=== PATIENT | male | born 1955 | race Caucasian/White ===

== ENCOUNTER 2016-08-18 17:00 | Outpatient (CLI) | payer MEDICAID | END 2016-08-18 17:01 | disposition home or self-care (01) | DX: B19.20 Unspecified viral hepatitis C without hepatic coma (principal) ==

== ENCOUNTER 2017-04-12 15:05 | Outpatient (CLI) | payer MEDICAID ==
--- NOTE | 2017-04-13 11:36 | XRAY Report ---
LEFT HIP AND PELVIS: 04/12/2017 CLINICAL INDICATION: Hip pain. FINDINGS: Frontal view of the hips and pelvis and frogleg lateral view of the left hip demonstrate a rthritic changes, moderate to severe, most compatible with osteoarthritis. There is no evidence of a cute fracture or dislocation. Mild osteoarthritis of the right hip is also noted. IMPRESSION: MODERATE TO SEVERE ARTHRITIS OF THE LEFT HIP, MOST COMPATIBLE WITH OSTEOARTHRITIS. JOB #: [id number] EXT JOB #:[id number]
== END 2017-04-12 15:06 | disposition home or self-care (01) ==
LOC: DI 15:05
PROVIDERS: ATTEND Nurse Practitioner Family
DX: M25.552 Pain in left hip (principal); M16.12 Unilateral primary osteoarthritis, left hip

== ENCOUNTER 2017-04-16 13:33 | Outpatient (CLI) | payer MEDICAID ==
--- NOTE | 2017-04-16 15:04 | Ultrasound Report ---
EXAM: SCROTAL ULTRASOUND EXAM DATE: 04/16/2017 02:08 PM. CLINICAL HISTORY: Left testicular mass, increasing in size for last month. No pain. COMPARISON: None. TECHNIQUE: Real-time scanning was performed with static images obtained. Both color-flow and Doppler spectral analysis were utilized. FINDINGS: Right: Testis: 4.4 x 2.5 x 3.0 cm. Normal echotexture. No masses or calcification. No hyperemia. Epididymis: The epididymal head measures 1.3 x 0.7 x 0.8 cm. Normal echotexture. No hyperemia. Hydrocele: None. Varicocele: None. Left: Testis: 4.6 x 2.5 x 2.9 cm. Normal echotexture. No mass or calcification. No hyperemia Epididymis: The epididymal head measures 2.1 x 2.0 x 2.1 cm and contains a multiloculated cyst measur ing 1.6 x 1.0 x 1.2 cm. Normal echotexture. No hyperemia. Hydrocele: None. Varicocele: None. IMPRESSION: 1. Multiloculated left epididymal head cyst. 2. Otherwise unremarkable scrotal ultrasound. [facility] Referring Provider Line: [phone] SITE ID: [id number]
== END 2017-04-16 13:34 | disposition home or self-care (01) ==
LOC: DI 13:33
PROVIDERS: ATTEND Nurse Practitioner Family
DX: N50.3 Cyst of epididymis (principal)
CPT/HCPCS: 76870

== ENCOUNTER 2017-09-05 08:00 | Outpatient (CLI) | payer MEDICAID ==
[2017-09-05 18:15] LABS: BASOPHILS % (AUTO) 0.9 %; EOSINOPHILS # (AUTO) 0.1 10^3/uL (0.0-0.7); EOSINOPHILS % (AUTO) 1.9 %; HGB - HEMOGLOBIN 13.3 g/dL (14.0-18.0); LYMPHOCYTES # (AUTO) 1.4 10^3/uL (1.5-3.5); LYMPHOCYTES % (AUTO) 27.9 %; MEAN CORPUSCULAR HEMOGLOBIN 30.6 pg (27.0-31.0); MEAN CORPUSCULAR HGB CONC 33.8 g/dL (32.0-36.0); MEAN CORPUSCULAR VOLUME 90.8 fL (80.0-94.0); MEAN PLATELET VOLUME 6.9 fL (7.4-11.4); MONOCYTES # (AUTO) 0.5 10^3/uL (0.0-1.0); MONOCYTES % (AUTO) 9.6 %; NEUTROPHILS # (AUTO) 2.9 10^3/uL (1.5-6.6); NEUTROPHILS % (AUTO) 59.7 %; PLT - PLATELET COUNT 300 10^3/uL (130-450); RED BLOOD COUNT 4.35 10^6/uL (4.70-6.10); RED CELL DISTRIBUTION WIDTH 13.8 % (12.0-15.0); WHITE BLOOD COUNT 4.9 x10^3/uL (4.8-10.8)
[2017-09-05 18:41] LABS: ALBUMIN 4.3 g/dL (3.2-5.5); ALBUMIN/GLOBULIN RATIO 1.3 (1.0-2.2); ALKALINE PHOSPHATASE 52 IU/L (42-121); ALT ALANINE AMINOTRANSFERASE 32 IU/L (10-60); AST ASPARTATE AMINOTRANSFERASE 31 IU/L (10-42); BILIRUBIN,TOTAL 0.4 mg/dL (0.2-1.0); BUN - BLOOD UREA NITROGEN 14 mg/dL (6-20); CARBON DIOXIDE - CO2 28 mmol/L (21-32); CHLORIDE 103 mmol/L (101-111); CREATININE 0.9 mg/dL (0.6-1.2); GFR - MDRD 85 (>89); GLUCOSE 87 mg/dL (70-100); SODIUM 138 mmol/L (135-145); TOTAL PROTEIN 7.5 g/dL (6.7-8.2)
== END 2017-09-05 08:01 | disposition home or self-care (01) ==
LOC: LAB.S 08:00
PROVIDERS: ATTEND Nurse Practitioner Family
DX: I10 Essential (primary) hypertension (principal)
CPT/HCPCS: 36415; 80053; 84443; 85025

== ENCOUNTER 2017-09-10 08:00 | Outpatient (CLI) | payer MEDICAID | END 2017-09-10 23:59 | disposition home or self-care (01) | LOC: LAB.R 08:00 | PROVIDERS: ATTEND Nurse Practitioner Family | DX: D64.9 Anemia, unspecified (principal) | CPT/HCPCS: 82270 ==

== ENCOUNTER 2017-10-14 20:52 | Emergency (ER) | payer MEDICAID ==
[2017-10-14 21:03] VITALS: BP 148/90
--- NOTE | 2017-10-14 21:17 | ED Physician Documentation ---
History of Present Illness - Stated complaint Stated Complaint: ELBOW PX - Chief complaint Chief Complaint: General - History obtained from History obtained from: Patient - History of Present Illness Timing: Other (He developed a nonpainful but significant swelling of the left elbow over the last couple of days. He is worried it might be somehow related to his new hepatitis C medication. No fevers.) Review of Systems Constitutional: denies: Fever, Chills Cardiac: denies: Chest pain / pressure, Palpitations Respiratory: denies: Dyspnea, Cough PD PAST MEDICAL HISTORY - Past Medical History Past Medical History: Yes Cardiovascular: Hypertension, Angina Respiratory: COPD, Other Neuro: TIA Endocrine/Autoimmune: None GI: Colon polyps, Hepatitis : Retention HEENT: None Psych: Depression, Post traumatic stress disorder Musculoskeletal: Osteoarthritis Derm: None - Past Surgical History Past Surgical History: Yes General: Other HEENT: Tonsil/Adenoidectomy - Present Medications Home Medications: Ambulatory Orders Medication Instructions Recorded Confirmed Diflunisal 500 mg PO DAILY 02/14/15 02/14/15 - Allergies Allergies/Adverse Reactions: Allergies Allergy/AdvReac Type Severity Reaction Status Date / Time No Known Drug Allergies Allergy Verified 10/14/17 21:03 - Social History Does the pt smoke?: Yes Smoking Status: Current every day smoker Does the pt drink ETOH?: No Does the pt have substance abuse?: No - Immunizations Immunizations are current?: No - POLST Patient has POLST: No PD ED PE NORMAL - Vitals Vital signs reviewed: Yes - General General: Alert and oriented X 3, No acute distress - Extremities Extremities: Other (He has significant olecranon bursitis, however it does not look infected. It is not red or warm, just a large effusion of that bursa. He has no limited range of motion of the left elbow.) - Neuro Neuro: Alert and oriented X 3, Normal speech Results - Vitals Vitals: Vital Signs - 24 hr 10/14/17 21:02 Temperature 36.7 C Heart Rate 82 Respiratory 17 Rate Blood Pressure 148/90 H O2 Saturation 98 Oxygen O2 Source Room air Departure - Departure Disposition: 01 Home, Self Care Clinical Impression: Effusion of left olecranon bursa Condition: Good Record reviewed to determine appropriate education?: Yes Instructions: ED Bursitis Elbow Olecranon Comments: Take ibuprofen as needed, after a while if it does not improve he can follow-up with orthopedic surgeon for removal of it. Return if it gets red or warm or if you start run a fever. Your blood pressure was elevated today on check into the emergency department. This does not mean that you have hypertension, it is a common phenomenon to come to the emergency department and have elevated blood pressure. I recommend that you see your primary care physician within the week to have it rechecked when you are feeling better.
== END 2017-10-14 21:25 | disposition home or self-care (01) ==
LOC: ED 20:52
DX: M25.422 Effusion, left elbow (principal); M70.22 Olecranon bursitis, left elbow; I10 Essential (primary) hypertension; M19.90 Unspecified osteoarthritis, unspecified site; F17.200 Nicotine dependence, unspecified, uncomplicated
CPT/HCPCS: 99282; 99283

== ENCOUNTER 2017-10-31 08:00 | Outpatient (CLI) | payer MEDICAID ==
[2017-10-31 18:00] LABS: BASOPHILS % (AUTO) 0.7 %; EOSINOPHILS # (AUTO) 0.1 10^3/uL (0.0-0.7); EOSINOPHILS % (AUTO) 1.6 %; HGB - HEMOGLOBIN 13.1 g/dL (14.0-18.0); LYMPHOCYTES # (AUTO) 1.8 10^3/uL (1.5-3.5); LYMPHOCYTES % (AUTO) 32.8 %; MEAN CORPUSCULAR HEMOGLOBIN 30.2 pg (27.0-31.0); MEAN PLATELET VOLUME 6.7 fL (7.4-11.4); MONOCYTES # (AUTO) 0.6 10^3/uL (0.0-1.0); MONOCYTES % (AUTO) 11.1 %; NEUTROPHILS # (AUTO) 2.9 10^3/uL (1.5-6.6); NEUTROPHILS % (AUTO) 53.8 %; PLT - PLATELET COUNT 328 10^3/uL (130-450); RED BLOOD COUNT 4.32 10^6/uL (4.70-6.10); RED CELL DISTRIBUTION WIDTH 13.3 % (12.0-15.0); WHITE BLOOD COUNT 5.4 x10^3/uL (4.8-10.8)
[2017-10-31 18:27] LABS: ALBUMIN 4.5 g/dL (3.2-5.5); ALBUMIN/GLOBULIN RATIO 1.4 (1.0-2.2); BILIRUBIN,TOTAL 0.6 mg/dL (0.2-1.0); CALCIUM 9.1 mg/dL (8.5-10.3); TOTAL PROTEIN 7.8 g/dL (6.7-8.2)
== END 2017-10-31 08:01 ==
LOC: LAB.S 08:00
PROVIDERS: ATTEND Physician Assistant
DX: B19.20 Unspecified viral hepatitis C without hepatic coma (principal)
CPT/HCPCS: 36415; 80053; 85025

== ENCOUNTER 2017-11-07 08:00 | Outpatient (CLI) | payer MEDICAID ==
[2017-11-07 18:26] LABS: BASOPHILS % (AUTO) 0.8 %; EOSINOPHILS # (AUTO) 0.1 10^3/uL (0.0-0.7); EOSINOPHILS % (AUTO) 2.2 %; HGB - HEMOGLOBIN 12.7 g/dL (14.0-18.0); LYMPHOCYTES # (AUTO) 1.5 10^3/uL (1.5-3.5); LYMPHOCYTES % (AUTO) 26.5 %; MEAN CORPUSCULAR HEMOGLOBIN 30.3 pg (27.0-31.0); MEAN CORPUSCULAR HGB CONC 33.5 g/dL (32.0-36.0); MEAN CORPUSCULAR VOLUME 90.3 fL (80.0-94.0); MEAN PLATELET VOLUME 6.9 fL (7.4-11.4); MONOCYTES # (AUTO) 0.6 10^3/uL (0.0-1.0); MONOCYTES % (AUTO) 11.2 %; NEUTROPHILS # (AUTO) 3.4 10^3/uL (1.5-6.6); NEUTROPHILS % (AUTO) 59.3 %; PLT - PLATELET COUNT 346 10^3/uL (130-450); RED BLOOD COUNT 4.18 10^6/uL (4.70-6.10); RED CELL DISTRIBUTION WIDTH 13.5 % (12.0-15.0); WHITE BLOOD COUNT 5.7 x10^3/uL (4.8-10.8)
[2017-11-07 18:53] LABS: ALBUMIN 4.2 g/dL (3.2-5.5); ALBUMIN/GLOBULIN RATIO 1.4 (1.0-2.2); BILIRUBIN,TOTAL 0.4 mg/dL (0.2-1.0); CALCIUM 8.7 mg/dL (8.5-10.3); CREATININE 0.9 mg/dL (0.6-1.2); TOTAL PROTEIN 7.1 g/dL (6.7-8.2)
[2017-11-09 15:41] LABS: HCV RNA QNT <1.18 NOT DETECTED Log IU/mL (NOT DETECTED); HCV RNA QUANT RT PCR <15 NOT DETECTED IU/mL (NOT DETECTED)
== END 2017-11-07 08:01 ==
LOC: LAB.S 08:00
PROVIDERS: ATTEND Physician Assistant
DX: B19.20 Unspecified viral hepatitis C without hepatic coma (principal)
CPT/HCPCS: 36415; 80053; 85025; 87522

== ENCOUNTER 2017-11-30 12:33 | Outpatient (CLI) | payer MEDICAID ==
[2017-11-30 12:51] LABS: BASOPHILS % (AUTO) 0.6 %; EOSINOPHILS # (AUTO) 0.1 10^3/uL (0.0-0.7); EOSINOPHILS % (AUTO) 1.4 %; LYMPHOCYTES # (AUTO) 1.5 10^3/uL (1.5-3.5); LYMPHOCYTES % (AUTO) 30.1 %; MEAN CORPUSCULAR HGB CONC 34.2 g/dL (32.0-36.0); MEAN CORPUSCULAR VOLUME 90.5 fL (80.0-94.0); MEAN PLATELET VOLUME 6.1 fL (7.4-11.4); MONOCYTES # (AUTO) 0.5 10^3/uL (0.0-1.0); MONOCYTES % (AUTO) 10.2 %; NEUTROPHILS # (AUTO) 2.8 10^3/uL (1.5-6.6); NEUTROPHILS % (AUTO) 57.7 %; PLT - PLATELET COUNT 293 10^3/uL (130-450); RED BLOOD COUNT 4.21 10^6/uL (4.70-6.10); RED CELL DISTRIBUTION WIDTH 13.4 % (12.0-15.0); WHITE BLOOD COUNT 4.9 x10^3/uL (4.8-10.8)
[2017-11-30 13:01] LABS: ALBUMIN 4.3 g/dL (3.2-5.5); ALBUMIN/GLOBULIN RATIO 1.4 (1.0-2.2); BILIRUBIN,TOTAL 0.3 mg/dL (0.2-1.0); CALCIUM 8.8 mg/dL (8.5-10.3); TOTAL PROTEIN 7.3 g/dL (6.7-8.2)
[2017-12-01 11:21] LABS: HEPATITIS C ANTIBODY REACTIVE (NON-REACTIVE)
[2017-12-03 16:11] LABS: HCV RNA QNT <1.18 NOT DETECTED Log IU/mL (NOT DETECTED); HCV RNA QUANT RT PCR <15 NOT DETECTED IU/mL (NOT DETECTED)
== END 2017-11-30 12:34 | disposition home or self-care (01) ==
LOC: LAB 12:33
PROVIDERS: ATTEND Physician Assistant
DX: B19.20 Unspecified viral hepatitis C without hepatic coma (principal)
CPT/HCPCS: 36415; 80053; 85025; 86803; 87522

== ENCOUNTER 2018-02-20 16:50 | Outpatient (CLI) | payer MEDICAID | END 2018-02-20 16:51 | disposition home or self-care (01) | LOC: RT.S 16:50 | PROVIDERS: ATTEND Nurse Practitioner Family | DX: Z01.818 Encounter for other preprocedural examination (principal) ==

== ENCOUNTER 2018-02-23 13:17 | Outpatient (CLI) | payer MEDICAID ==
[2018-02-23 13:38] LABS: BASOPHILS % (AUTO) 0.6 %; EOSINOPHILS # (AUTO) 0.1 10^3/uL (0.0-0.7); EOSINOPHILS % (AUTO) 1.9 %; HGB - HEMOGLOBIN 13.2 g/dL (14.0-18.0); LYMPHOCYTES # (AUTO) 1.7 10^3/uL (1.5-3.5); LYMPHOCYTES % (AUTO) 27.6 %; MEAN CORPUSCULAR HEMOGLOBIN 30.8 pg (27.0-31.0); MEAN CORPUSCULAR HGB CONC 33.5 g/dL (32.0-36.0); MEAN PLATELET VOLUME 6.3 fL (7.4-11.4); MONOCYTES # (AUTO) 0.6 10^3/uL (0.0-1.0); MONOCYTES % (AUTO) 10.2 %; NEUTROPHILS # (AUTO) 3.6 10^3/uL (1.5-6.6); NEUTROPHILS % (AUTO) 59.7 %; PLT - PLATELET COUNT 298 10^3/uL (130-450); RED BLOOD COUNT 4.28 10^6/uL (4.70-6.10); RED CELL DISTRIBUTION WIDTH 13.7 % (12.0-15.0); WHITE BLOOD COUNT 6.1 x10^3/uL (4.8-10.8)
[2018-02-23 13:56] LABS: ALBUMIN 3.8 g/dL (3.2-5.5); BILIRUBIN,TOTAL 0.5 mg/dL (0.2-1.0); CALCIUM 9.1 mg/dL (8.5-10.3); TOTAL PROTEIN 7.5 g/dL (6.7-8.2)
== END 2018-02-23 13:18 | disposition home or self-care (01) ==
LOC: LAB 13:17
PROVIDERS: ATTEND Nurse Practitioner Family
DX: Z01.818 Encounter for other preprocedural examination (principal)
CPT/HCPCS: 36415; 80053; 85025; 87522; 87640

== ENCOUNTER 2018-04-07 13:40 | Outpatient (CLI) | payer MEDICAID ==
--- NOTE | 2018-04-07 17:15 | CARDIAC PROCEDURE NOTE ---
DATE OF SERVICE: 04/07/2018 Physician: Ellen Bradford MD ORDERING PROVIDER: Magalys Steele. CAD RISK FACTORS/PAST MEDICAL HISTORY: 1. Long smoking history. 2. Hypertension. 3. Hyperlipidemia. 4. Male gender. INDICATIONS: 1. Abnormal EKG. 2. Preoperative for left hip surgery. TEST SUMMARY: RESTING EKG: Normal sinus rhythm, frequent PACs, LVH voltage. The patient exercised for 6 minutes on a 3-minute stage modified-Jorge protocol. Peak heart rate achieved was 135 (86% predicted maximum predicted heart rate for age), 3.5 METS. Normal heart rate response to exercise with rare PACs and rare PVCs during exercise. Abnormal blood pressure response with a drop in systolic blood pressure at peak. The patient had mild to moderate shortness of breath. No chest pain like his "angina" in the past. REASON FOR ENDING TEST: Achieved target heart rate and abnormal drop in blood pressure with exercise. PEAK EK-mm J-point depression in the lateral leads. IMPRESSION: 1. Fair exercise tolerance. 2. Borderline abnormal ischemic changes at peak heart rate. 3. Abnormal drop in blood pressure with exercise. This suggests significant coronary artery disease (CAD) and needs confirmation. 4. Recommend repeat testing with a pharmacologic stress test and myocardial perfusion imaging or consider proceeding to angiography (light activity until then), since he has a "history of angina" and has never had a cardiac catheterization. TD: 04/07/2018 16:03 MTDD
== END 2018-04-07 13:41 | disposition home or self-care (01) ==
LOC: DI 13:40
PROVIDERS: ATTEND Nurse Practitioner Family
DX: Z01.818 Encounter for other preprocedural examination (principal); I10 Essential (primary) hypertension; R94.31 Abnormal electrocardiogram [ECG] [EKG]
CPT/HCPCS: 93017

== ENCOUNTER 2018-04-12 12:10 | Outpatient (CLI) | payer OTHER | END 2018-04-12 12:11 | disposition home or self-care (01) | LOC: LAB 12:10 | PROVIDERS: ATTEND Pathology Blood Banking & Transfusion Medicine | DX: Z01.89 Encounter for other specified special examinations (principal) | CPT/HCPCS: 36415 ==

== ENCOUNTER 2018-06-20 11:39 | Emergency (ER) | payer MEDICAID ==
--- NOTE | 2018-06-20 13:57 | ED Physician Documentation ---
PD HPI BACK PAIN - Stated complaint Stated Complaint: LOW BACK PX-BI-LAT LEG PX - Chief complaint Chief Complaint: Back Pain - History obtained from History obtained from: Patient, Family - History of Present Illness Timing - onset: Chronic Timing - duration: Years Timing - details: Gradual onset, Still present, Intermittant Pain level max: 10 Pain level now: 10 Location: Lower Quality: Pain, Similar to prior episodes Associated symptoms: Numbness (IntermittentBut chronic), Incontinent of urine (Intermittent and chronic). No: Fever, Weakness, Unable to urinate, Hematuria, Incontinent of stool Improves with: Rest Worsened by: Movement Contributing factors: Out of meds (3 weeks out of meloxicam). No: Trauma, Anticoagulated Similar symptoms before: Work up / diagnostics (2005 L5 compression fracture. Left hip requires replacement seen by orthopedic couple months ago.) - Additional information Additional information: 62-year-old male with history of Hypertension, hepatitis C with treatment and chronic low back pain after a lifting injury at work in 2005 when he was in [facility]. He also stated he has chronic left hip pain for which he had seen the local orthopedic here and is currently being worked up for the near future hip replacement.With his chronic low back pain and left hip pain he has intermittent numbness of both legs and intermittent incontinence of urine. Patient also stated he is on meloxicam which ran out 3 weeks ago due to insurance issues. Denies any recent trauma or lifting injury. Review of Systems Ten Systems: 10 systems reviewed and negative Constitutional: denies: Fever Cardiac: denies: Chest pain / pressure Respiratory: denies: Dyspnea GI: denies: Abdominal Pain, Nausea, Vomiting, Constipation, Diarrhea : reports: Incontinent (Chronic intermittent). denies: Dysuria, Frequency, Hematuria Musculoskeletal: reports: Back pain (Chronic), Extremity pain (Left hip chronic). denies: Neck pain Neurologic: reports: Numbness (Chronic intermittent). denies: Generalized weakness, Focal weakness PD PAST MEDICAL HISTORY - Past Medical History Past Medical History: No Cardiovascular: Hypertension, Angina Respiratory: COPD, Other Neuro: None Endocrine/Autoimmune: None GI: Colon polyps, Hepatitis : Retention, Incontinence HEENT: None Psych: Depression, Post traumatic stress disorder Musculoskeletal: Osteoarthritis Derm: None - Past Surgical History Past Surgical History: Yes General: Other HEENT: Tonsil/Adenoidectomy - Present Medications Home Medications: Ambulatory Orders Medication Instructions Recorded Confirmed Albuterol Sulf [Ventolin Hfa 2 puffs QID 06/20/18 06/20/18 Inhaler] Fluoxetine HCl 20 mg DAILY 06/20/18 06/20/18 Meloxicam 7.5 mg PO BID 06/20/18 06/20/18 Meloxicam 7.5 mg PO DAILY #6 tablet 06/20/18 Metoprolol Succinate 25 mg PO 06/20/18 Tiotropium [place] [Spiriva] 18 mcg IH 06/20/18 Umeclidinium Brm/Vilanterol Tr 1 tab DAILY 06/20/18 06/20/18 [Anoro Ellipta 62.5-25 Mcg INH] - Allergies Allergies/Adverse Reactions: Allergies Allergy/AdvReac Type Severity Reaction Status Date / Time No Known Drug Allergies Allergy Verified 06/20/18 12:22 - Social History Does the pt smoke?: Yes Smoking Status: Current every day smoker Does the pt drink ETOH?: Yes Does the pt have substance abuse?: Yes Substance Use and Type: Marijuana - Immunizations Immunizations are current?: Yes - POLST Patient has POLST: No PD ED PE NORMAL - Vitals Vital signs reviewed: Yes - General General: Alert and oriented X 3, No acute distress, Well developed/nourished - HEENT HEENT: Moist mucous membranes - Neck Neck: Supple, no meningeal sign, No bony TTP - Cardiac Cardiac: RRR, No murmur - Respiratory Respiratory: No respiratory distress, Clear bilaterally - Abdomen Abdomen: Normal bowel sounds, Soft, Non tender, Non distended, No organomegaly, Other (No palpable mass) - Back Back: No CVA TTP, No spinal TTP, Other (Low lumbar paravertebral muscle mild tenderness palpation. Positive leg Raising worse on the left side.Positive point tenderness on the left hip.) - Derm Derm: Warm and dry - Extremities Extremities: No deformity - Neuro Neuro: Alert and oriented X 3 - Psych Psych: Normal mood, Normal affect Results - Vitals Vitals: Vital Signs - 24 hr 06/20/18 12:16 Temperature 36.4 C L Heart Rate 57 L Respiratory 18 Rate Blood Pressure 135/98 H O2 Saturation 100 Oxygen O2 Source Room air PD MEDICAL DECISION MAKING - ED course Complexity details: reviewed results, re-evaluated patient, considered differential (Lumbar strain, chronic pain, chronic back and left hip pain, sciatica, Medication refill), d/w patient ED course: 1714 patient sitting up in the bedside and stated he is feeling better. He is here to get a prescription for his meloxicam. He has an appointment with his primary doctor on Tuesday. Will discharge here meloxicam 7.5 mg daily. Departure - Departure Disposition: Home, Self Care Clinical Impression: Back pain Qualifiers: Back pain location: low back pain Chronicity: chronic Back pain laterality: unspecified Sciatica presence: with sciatica Sciatica laterality: bilateral sciatica Qualified Code(s): M54.41 - Lumbago with sciatica, right side; M54.42 - Lumbago with sciatica, left side; G89.29 - Other chronic pain Sciatica Qualifiers: Laterality: bilateral Qualified Code(s): M54.31 - Sciatica, right side; M54.32 - Sciatica, left side Condition: Stable Instructions: ED Chronic Pain Management, ANTI-INFLAMMATORY, General Prescriptions: Meloxicam 7.5 mg PO DAILY #6 tablet Comments: Keep your doctor's appointments as scheduled next week. Maintain safety while taking your pain medication. If worse return to the emergency room.
--- NOTE | 2018-06-20 14:25 | XRAY Report ---
Reason: pain Procedure Date: 06/20/2018 Accession Number: [id number] / [id number] Procedure: XR - Lumbar Spine 2 View CPT Code: FULL RESULT: EXAM: LUMBOSACRAL SPINE RADIOGRAPHY EXAM DATE: 06/20/2018 01:46 PM. CLINICAL HISTORY: Pain. COMPARISONS: Lumbar spine 02/21/2015. TECHNIQUE: 3 views. FINDINGS: Alignment: There is 15 degrees levoconvex curvature of the lumbar spine between superior L2 and inferior L4, L3 apex. There is 16 degrees dextroconvex curvature of the thoracolumbar spine between superior T11 and inferior L2, T12-L1 apex. There is 1 mm retrolisthesis of L2 upon L3. There is 4 mm retrolisthesis of L3 upon L4. There is 2 mm retrolisthesis of L4 upon L5. Bones: Five sng-elv-eimdbbp lumbar vertebral bodies are present. No fractures or bone lesions. Disks: There is a moderate to severe disk space narrowing at L2-L3 and L3-L4. There is moderate disk space narrowing at L4-L5. There is moderate disk space narrowing at T12-L1. There are moderate anterior osteophytes. Facets: Mild degenerative changes. Sacroiliac Joints: Unremarkable. Soft Tissues: The visualized bowel gas pattern is normal. IMPRESSION: Moderate to severe lumbar spondylosis. No appreciable change. [facility]
--- NOTE | 2018-06-20 14:28 | XRAY Report ---
Reason: pain Procedure Date: 06/20/2018 Accession Number: [id number] / [id number] Procedure: XR - Pelvis 1 View CPT Code: FULL RESULT: EXAM: PELVIS RADIOGRAPHY EXAM DATE: 06/20/2018 01:46 PM. CLINICAL HISTORY: Pain. COMPARISON: Left hip and pelvis 04/12/2017. TECHNIQUE: 1 view. FINDINGS: Bones: No fracture or bone lesion. Joints: There are moderate progressive degenerative changes of the right hip with joint space narrowing and subchondral sclerosis. There are severe degenerative changes of the left hip with progressive bgxt-dd-gehi degeneration, remodeling of the femoral head, subchondral sclerosis, and subchondral cyst like changes. Soft Tissues: No soft tissue swelling. IMPRESSION: Progressive osteoarthritis of the hips, moderate on the right and severe on the left [facility]
[2018-06-20] MEDS: MELOXICAM 7.5 MG TABLET PO ONE (15:28)
[2018-06-20 16:07] VITALS: BP 134/98
[2018-06-21] MEDS ORDERED: MELOXICAM 7.5 MG TABLET PO SCH (09:00)
== END 2018-06-20 16:11 | disposition home or self-care (01) ==
LOC: ED 11:39
DX: M54.42 Lumbago with sciatica, left side (principal); M54.41 Lumbago with sciatica, right side; G89.29 Other chronic pain; M16.0 Bilateral primary osteoarthritis of hip; I10 Essential (primary) hypertension; B19.20 Unspecified viral hepatitis C without hepatic coma; F17.200 Nicotine dependence, unspecified, uncomplicated
CPT/HCPCS: 72100; 72170; 99283; A9270

== ENCOUNTER 2018-07-10 15:02 | Emergency (ER) | payer MEDICAID ==
[2018-07-10 15:13] VITALS: BP 145/96
--- NOTE | 2018-07-10 15:21 | ED Physician Documentation ---
PD HPI HEENT - Stated complaint Stated Complaint: TOOTH PAIN/ BILAT HIP PX - Chief complaint Chief Complaint: Heent - History obtained from History obtained from: Patient - History of Present Illness Timing - onset: How many days ago (2-3) Timing - duration: Days (2-3) Timing - details: Abrupt onset Location: Tooth (rigth lower canine, with swelling of gum over few days. had a single tooth there as anchor for bridge and the tooth broke off. He does not have use of the bridge now, and will be looking to get dentures eventually.) Associated symptoms: Facial swelling. No: Fever Similar symptoms before: Has not had sx before Recently seen: Not recently seen Review of Systems Constitutional: denies: Fever Throat: reports: Dental pain / toothache, Oral lesions / sores (focal swelling). denies: Sore throat, Swollen tonsils Cardiac: denies: Chest pain / pressure, Palpitations Respiratory: denies: Dyspnea, Cough Skin: denies: Rash, Lesions Musculoskeletal: reports: Other (chronic hip pain due to arthritis, no acute worsening and no redness/sores.) PD PAST MEDICAL HISTORY - Past Medical History Cardiovascular: Hypertension, Angina Respiratory: COPD, Other Neuro: None Endocrine/Autoimmune: None GI: Colon polyps, Hepatitis : Retention, Incontinence HEENT: None Psych: Depression, Post traumatic stress disorder Musculoskeletal: Osteoarthritis Derm: None - Past Surgical History Past Surgical History: Yes General: Other HEENT: Tonsil/Adenoidectomy - Present Medications Home Medications: Ambulatory Orders Medication Instructions Recorded Confirmed Albuterol Sulf [Ventolin Hfa 2 puffs QID 06/20/18 06/20/18 Inhaler] Meloxicam 7.5 mg PO BID 06/20/18 06/20/18 Metoprolol Succinate 25 mg PO 06/20/18 Tiotropium [place] [Spiriva] 18 mcg IH 06/20/18 Umeclidinium Brm/Vilanterol Tr 1 tab DAILY 06/20/18 06/20/18 [Anoro Ellipta 62.5-25 Mcg INH] Clindamycin HCl [Clindamycin 300MG 300 mg PO TID #21 capsule 07/10/18 CAP] Naproxen 375 mg PO BID #20 tablet 07/10/18 Tramadol HCl 50 mg PO Q6H PRN #15 tablet 07/10/18 - Allergies Allergies/Adverse Reactions: Allergies Allergy/AdvReac Type Severity Reaction Status Date / Time No Known Drug Allergies Allergy Verified 07/10/18 15:13 - Social History Does the pt smoke?: Yes Smoking Status: Current every day smoker Does the pt drink ETOH?: Yes Does the pt have substance abuse?: Yes - Immunizations Immunizations are current?: Yes - POLST Patient has POLST: No PD ED PE NORMAL - Vitals Vital signs reviewed: Yes - General General: Alert and oriented X 3, No acute distress, Well developed/nourished - HEENT HEENT: Other. No: Dentition benign (lower right canine with broken off decay at gumline, and focal bubble of ginginva c/w abscess, that I srinivas with scalpel tip and get out drops of pus. ) Results - Vitals Vitals: Oxygen O2 Source Room air PD MEDICAL DECISION MAKING - ED course Complexity details: considered differential, d/w patient Departure - Departure Disposition: 01 Home, Self Care Clinical Impression: Dental abscess, Hip arthritis Condition: Stable Record reviewed to determine appropriate education?: Yes Instructions: ED Abscess Dental Follow-Up: Magalys Steele ARNP [Primary Care Provider] - Arturo Young MD [Provider Admit Priv/Credential] - Prescriptions: Clindamycin HCl [Clindamycin 300MG CAP] 300 mg PO TID #21 capsule Naproxen 375 mg PO BID #20 tablet Tramadol HCl 50 mg PO Q6H PRN #15 tablet PRN Reason: Pain Comments: Rinse the mouth a few times a day with water or antiseptic mouthwash. Use clindamycin antibiotic 3 times a day for a week. Naproxen anti-inflammatory twice daily for pain and inflammation. Add tramadol if needed for pain. Follow-up with your dentist regarding more definitive care of the broken tooth, call for an appointment. Discharge Date/Time: 07/10/18 16:00
[2018-07-10] MEDS ORDERED: NAPROXEN 250 MG TABLET PO STA (15:44)
[2018-07-10] MEDS ORDERED: CLINDAMYCIN 150 MG CAPSULE PO STA (15:44)
[2018-07-10] MEDS ORDERED: HYDROcod/ACETAM 5/325 MG TABLET PO STA (15:44)
== END 2018-07-10 16:00 | disposition home or self-care (01) ==
LOC: ED 15:02
DX: K04.7 Periapical abscess without sinus (principal); M16.0 Bilateral primary osteoarthritis of hip; I10 Essential (primary) hypertension; F17.200 Nicotine dependence, unspecified, uncomplicated
CPT/HCPCS: 99283; A9270

== ENCOUNTER 2019-01-04 15:42 | Inpatient (IN) | payer MEDICAID ==
[2019-01-04 16:25] LABS: BASOPHILS % (AUTO) 0.2 %; EOSINOPHILS % (AUTO) 0.3 %; LYMPHOCYTES % (AUTO) 4.3 %; MEAN CORPUSCULAR HEMOGLOBIN 29.9 pg (27.0-31.0); MEAN CORPUSCULAR HGB CONC 33.4 g/dL (32.0-36.0); MEAN CORPUSCULAR VOLUME 89.5 fL (80.0-94.0); MEAN PLATELET VOLUME 7.3 fL (7.4-11.4); MONOCYTES % (AUTO) 6.5 %; NEUTROPHILS % (AUTO) 88.7 %; PLT - PLATELET COUNT 325 10^3/uL (130-450); RED BLOOD COUNT 3.68 10^6/uL (4.70-6.10); RED CELL DISTRIBUTION WIDTH 14.7 % (12.0-15.0); WHITE BLOOD COUNT 13.5 x10^3/uL (4.8-10.8)
[2019-01-04 16:30] LABS: ABNORMAL LYMPHS % (MANUAL) 0 %
[2019-01-04 16:40] LABS: ALBUMIN 2.6 g/dL (3.2-5.5); ALBUMIN/GLOBULIN RATIO 0.6 (1.0-2.2); CALCIUM 8.4 mg/dL (8.5-10.3); CREATININE 3.3 mg/dL (0.6-1.2)
[2019-01-04] MEDS ORDERED: SODIUM CHLORIDE 0.9% 1,000 ML IV ONE ×2 (16:55)
--- NOTE | 2019-01-04 16:57 | ED Physician Documentation ---
PD HPI ABD PAIN - Stated complaint Stated Complaint: D/V/N - Chief complaint Chief Complaint: Abd Pain - History obtained from History obtained from: Patient - History of Present Illness Timing - onset: Other (63-year-old gentleman with history of treated hepatitis C and bad hip presents with 8 days of diarrhea that is been on and off bloody associated with nausea but no vomiting. He really has not been able to eat or drink much. He is feeling dizzy and weak. He denies any significant or measured fevers. No sick contacts or recent travel, no camping or recent antibiotics.) Review of Systems Ten Systems: 10 systems reviewed and negative Constitutional: reports: Fatigue. denies: Fever, Chills Respiratory: denies: Dyspnea, Cough GI: reports: Abdominal Swelling (RUQ, gone), Nausea, Diarrhea. denies: Vomiting, Hematemesis PD PAST MEDICAL HISTORY - Past Medical History Cardiovascular: Hypertension, Angina Respiratory: COPD, Other Neuro: None Endocrine/Autoimmune: None GI: Colon polyps, Hepatitis : Retention, Incontinence HEENT: None Psych: Depression, Post traumatic stress disorder Musculoskeletal: Osteoarthritis Derm: None - Past Surgical History Past Surgical History: Yes General: Other HEENT: Tonsil/Adenoidectomy - Present Medications Home Medications: Ambulatory Orders Medication Instructions Recorded Confirmed Albuterol Sulf [Ventolin Hfa 2 puffs INH Q4H PRN 06/20/18 01/04/19 Inhaler] Metoprolol Succinate 25 mg PO DAILY 06/20/18 01/04/19 Tiotropium [place] [Spiriva] 1 puffs INH DAILY 06/20/18 01/04/19 Umeclidinium Brm/Vilanterol Tr 1 puffs INH DAILY 06/20/18 01/04/19 [Anoro Ellipta 62.5-25 Mcg INH] Amlodipine Besylate 10 mg PO DAILY 01/04/19 01/04/19 FLUoxetine [PROzac] 20 mg PO DAILY 01/04/19 01/04/19 Fluticasone Propionate 2 spray AWA DAILY 01/04/19 01/04/19 Naproxen 375 mg PO BID 01/04/19 01/04/19 Tramadol HCl 50 mg PO DAILY PRN 01/04/19 01/04/19 - Allergies Allergies/Adverse Reactions: Allergies Allergy/AdvReac Type Severity Reaction Status Date / Time No Known Drug Allergies Allergy Verified 01/04/19 15:58 - Social History Does the pt smoke?: Yes Smoking Status: Current every day smoker Does the pt drink ETOH?: Yes Does the pt have substance abuse?: Yes - Family History Family history: reports: Non contributory - Immunizations Immunizations are current?: Yes - POLST Patient has POLST: No PD ED PE NORMAL - Vitals Vital signs reviewed: Yes - General General: Alert and oriented X 3, No acute distress - HEENT HEENT: PERRL, EOMI, Other (Dry mucous membranes and somewhat sunken eyes) - Neck Neck: Supple, no meningeal sign, No bony TTP - Cardiac Cardiac: RRR, No murmur - Respiratory Respiratory: No respiratory distress, Clear bilaterally - Abdomen Abdomen: Normal bowel sounds, Soft, Non tender - Back Back: No CVA TTP, No spinal TTP - Derm Derm: Normal color, Warm and dry - Extremities Extremities: No edema, No calf tenderness / cord - Neuro Neuro: Alert and oriented X 3, Normal speech Results - Vitals Vitals: Vital Signs - 24 hr 01/04/19 15:52 Temperature 36.5 C Heart Rate 66 Respiratory 18 Rate Blood Pressure 118/84 H O2 Saturation 100 Oxygen O2 Source Room air - Labs Labs: Laboratory Tests 01/04/19 01/04/19 16:15 16:15 WBC 13.5 H RBC 3.68 L Hgb 11.0 L Hct 32.9 L MCV 89.5 MCH 29.9 MCHC 33.4 RDW 14.7 Plt Count 325 MPV 7.3 L Neut # (Auto) Not Reportable Lymph # (Auto) Not Reportable Winn # (Auto) Not Reportable Eos # (Auto) Not Reportable Baso # (Auto) Not Reportable Absolute Nucleated RBC Not Reportable Total Counted 100 Band Neuts % (Manual) 1 Reactive Lymphs % (Man) 2 Abnorm Lymph % (Manual) 0 Metamyelocytes % 2 H Myelocytes % 2 H Nucleated RBC % Not Reportable Neutrophils # (Manual) 11.2 H Lymphocytes # (Manual) 1.2 L Monocytes # (Manual) 0.5 Eosinophils # (Manual) 0.0 Basophils # (Manual) 0.0 Differential Comment MANUAL DIFFERENTIAL Manual Slide Review Indicated WBC Morphology 2+ TOXIC GRANULATION Platelet Estimate NORMAL (130-450,000) Platelet Morphology NORMAL APPEARANCE RBC Morph Micro Appear OVALOCYTES Sodium 136 Potassium 3.8 Chloride 102 Carbon Dioxide 23 Anion Gap 11.0 BUN 84 H* Creatinine 3.3 H Estimated GFR (MDRD) 19 L Glucose 105 H Calcium 8.4 L Total Bilirubin 1.0 AST 12 ALT 18 Alkaline Phosphatase 161 H Total Protein 7.0 Albumin 2.6 L Globulin 4.4 H Albumin/Globulin Ratio 0.6 L Lipase 52 H PD MEDICAL DECISION MAKING - ED course ED course: This is a 63-year-old gentleman with diarrhea and dehydration to the extent that he has acute renal failure with an acute BUN of 84, usually in the teens and a creatinine of 3.3, usually about 1.0 on prior labs. His electrolytes are fine and he is hemodynamically stable. He will need aggressive IV fluid rehydration and an inpatient stay to follow his renal function. Spoke with Dr. Bradford for admission at 4:58 PM. Also subsequently found to have a UTI and treated with Rocephin. Departure - Departure Disposition: [address] [place] DC/Xfer Clinical Impression: Diarrhea Qualifiers: Diarrhea type: presumed infectious Qualified Code(s): R19.7 - Diarrhea, unspecified ARF (acute renal failure) Qualifiers: Acute renal failure type: unspecified Qualified Code(s): N17.9 - Acute kidney failure, unspecified UTI (urinary tract infection) Qualifiers: Urinary tract infection type: site unspecified Hematuria presence: without hematuria Qualified Code(s): N39.0 - Urinary tract infection, site not specified Condition: Serious
[2019-01-04] MEDS ORDERED: TEMAZEPAM 15 MG CAPSULE PO PRN (17:02)
[2019-01-04] MEDS ORDERED: oxyCODONE 5 MG TABLET PO PRN (17:02)
[2019-01-04] MEDS ORDERED: ONDANSETRON 4 MG/2 ML VIAL IVP PRN (17:02)
[2019-01-04 17:05] LABS: BAND NEUTROPHILS % (MANUAL) 1 %; LYMPHOCYTES # (MANUAL) 1.2 10^3/uL (1.5-3.5); LYMPHOCYTES % (MANUAL) 7 %; METAMYELOCYTES % (MANUAL) 2 %; MONOCYTES # (MANUAL) 0.5 10^3/uL (0.0-1.0); MYELOCYTES % (MANUAL) 2 %; NEUTROPHILS # (MANUAL) 11.2 10^3/uL (1.5-6.6); NEUTROPHILS % (MANUAL) 82 %
[2019-01-04 17:10] LABS: DIFFERENTIAL COMMENT MANUAL DIFFERENTIAL; PLATELET ESTIMATE, MANUAL NORMAL (130-450,000) (NORMAL); PLATELET MORPHOLOGY NORMAL APPEARANCE (NORMAL); RBC MORPHOLOGY (MULTIPLE) OVALOCYTES (NORMAL)
[2019-01-04 17:50] LABS: BILIRUBIN,URINE NEGATIVE (NEGATIVE); GLUCOSE, URINE (UA) NEGATIVE (NEGATIVE); KETONES,URINE (UA) NEGATIVE (NEGATIVE); LEUKOCYTE ESTERASE, URINE LARGE (NEGATIVE); NITRITE,URINE NEGATIVE (NEGATIVE); OCCULT BLOOD,URINE LARGE (NEGATIVE); PROTEIN,URINE 100 mg/dL (NEGATIVE); UROBILINOGEN,URINE 0.2 (NORMAL) E.U./dL (NORMAL)
[2019-01-04 17:51] LABS: CLARITY,URINE TURBID (CLEAR)
[2019-01-04 17:58] LABS: BACTERIA,URINE Many /HPF (None Seen); SQUAMOUS EPITHELIAL CELL,UR NONE SEEN (<= Few); WBC CLUMPS,URINE PRESENT
[2019-01-04] MEDS ORDERED: SODIUM CHLORIDE 0.9% 1,000 ML IV SCH (18:00)
[2019-01-04] MEDS ORDERED: cefTRIAXone 1 GM in SODIUM CHLORIDE 0.9% MINIBAG 100 ML IV STA (18:03)
[2019-01-04] MEDS ORDERED: IPRATROPIUM/ALBUTEROL 3 ML NEB INH PRN (19:03)
[2019-01-04] MEDS ORDERED: D5.45NS W/20 MEQ KCL 1,000 ML IV STA (19:54)
[2019-01-04] MEDS: metroNIDAZOLE 500 MG/100 ML 500 MG/100 ML BAG IV SCH (20:39)
[2019-01-04 21:11] LABS: CREATININE,URINE 70.4 mg/dL; MICROALBUM/CREATININE RATIO,UR 157.7 ug/mg (<30.0); MICROALBUMIN,URINE 11.1 mg/dL (0-300.0)
[2019-01-05] MEDS: SODIUM CHLORIDE FLUSH 0.9% 10 ML SYRINGE IVP SCH ×3 (02:28→17:03)
--- NOTE | 2019-01-05 03:43 | HISTORY & PHYSICAL EXAMINATION ---
DATE OF SERVICE: 01/04/2019 Physician: Monika Mallory MD PRIVATE CARE PHYSICIAN: Katy Sanchez MD. CHIEF COMPLAINT: Abdominal pain. HISTORY OF PRESENT ILLNESS: Patient is a 63-year-old white male with a past medical history of hepatitis C status post treatment, with history of hypertension, COPD, osteoarthritis and posttraumatic stress disorder. He was in his usual state of health up to about 2 weeks ago. At that time, he developed a feeling of early satiety and upper abdominal discomfort. He felt like he was full and his upper abdomen was distended. He also had on and off feelings of abdominal cramps. Initially, it was only an abdominal discomfort; however, a few days later, he noticed that he could not eat. Every time he drank even a small amount of water, he had to go to the bathroom and passed watery, bloody stool. Therefore, he reduced his oral intake, he did not eat any solid food and even limited water intake. He was nauseous all the time, but denied vomiting. His stools were smelly and when he had to go to the bathroom, he had to go fast and he felt almost incontinent. He had an urge, always with pain; and after going to the bathroom, the pain got somewhat relieved. He denied any unusual food intake, denied travel history, ill contact or any risk factors for tick- borne illnesses. Did not drink from any unusual water source. Denied recent history of infections or taking any antibiotic. He never had similar symptoms in the past. Does not remember having gastroenterology workup. Denied family history of inflammatory bowel disease or any other bowel pathology. He estimates about a 10 pound weight loss during the past 2 weeks. Prior to coming to the ER, he felt dehydrated, acutely ill. Therefore, he presented for evaluation. On presentation to the ER, the patient had slightly elevated white blood cell count of 13.5. Albumin was 2.6. He was seen with acute kidney injury/renal failure with creatinine of 3.3 and BUN of 84. Notably in the past, he had normal renal function. Electrolytes including sodium and potassium were unremarkable. Carbon dioxide and anion gap within normal limits as well. Alkaline phosphatase was 161. Liver function tests otherwise unremarkable. Lipase at the upper limit of the normal range. Urinalysis was positive with protein, blood, leukocyte esterase and numerous white blood cells. There were many bacteria. Hemoglobin was 11. Notably, in the past hemoglobin was in the 13 range. At the ER, the patient received 2 liters IV hydration. PAST MEDICAL HISTORY 1. Hepatitis C status post treatment. 2. Osteoarthritis. 3. Hypertension. 4. Chronic obstructive pulmonary disease, no history of oxygen dependence. 5. Depression/posttraumatic stress disorder. 6. Patient does not have history of diabetes, coronary artery disease, or prior history of bowel disease and no history of GI bleed. OUTPATIENT MEDICATIONS 1. Anoro Ellipta inhaler. 2. Spiriva. 2. Naproxen. 3. Metoprolol. 4. Prozac. 5. Tramadol. 6. Fluticasone 7. Amlodipine. 8. Albuterol. REVIEW OF SYMPTOMS: Please see pertinent positives and negatives listed above at history of present illness. On further interview, the patient reported that he was able to take his medications regularly. He continues to take the above- listed outpatient medications. He did not report chest pain, shortness of breath or exertional symptoms. A 12-system review was done and was negative other than the symptoms listed above. SOCIAL AND FUNCTIONAL STATUS: Patient reports that he has 9 siblings. When he was a child, his parents were . He lived with his mother in [place] and his father lived in [facility], was working up in the [employer]. During his teenage years, his mother suffered a fatal accident, was run over, and this was a traumatic event for the patient and his family. He reported that subsequently during his teenage years, due to posttraumatic stress, he was abusing alcohol and using drugs. Subsequently, he recovered after participating in a treatment program. He reports being fully functional with instrumental activities of daily living. He used to smoke cigarettes, quit 6 months ago. FAMILY HISTORY: Negative for bowel disease and reports that he has a brother who is dying of end-stage cancer at age 69, but the patient cannot tell what kind of cancer it is. PHYSICAL EXAMINATION VITAL SIGNS: Temperature maximum 37 Celsius, heart rate between 60 and 70, blood pressure 118/84, respiratory rate 18, oxygen saturation 100% on room air. GENERAL: The patient is a well-developed, thin male who is not in acute distress. SKIN: With pallor. MUSCULOSKELETAL: The patient is very thin, appears with decreased muscle mass and temporal wasting. Atraumatic. CARDIOVASCULAR: S1, S2 regular. No pathologic murmur. LUNGS: Clear to auscultation without wheezes or crackles. ABDOMEN: Appears distended in proportion to the patient's thin body habitus. There was diffuse epigastric tenderness without guarding or rebound. Bowel tones were hypoactive. LYMPHATIC: No lymphedema. NEUROLOGIC: Alert, oriented. Nonfocal. PSYCHIATRIC: Cooperative, pleasant to talk to. ASSESSMENT AND PLAN: Patient is a 63-year-old man who is getting admitted with a 2 week history of abdominal cramps, which are located in the upper abdomen and with bloody diarrhea. He lost about 10 pounds, which is significant. He is getting admitted with acute renal failure. ACTIVE ISSUES/DIAGNOSES 1. Sub-Acute bloody diarrhea with abdominal cramps. At 2 week time line, this could still be infectious diarrhea. 2. Acute renal failure, most likely secondary to diarrhea and dehydration. Other contributing factors could be interstitial nephritis with nonsteroidal anti-inflammatory use, urinary pathology as the patient at the same time has positive urinalysis, which could indicate nephrolithiasis, urinary tract infection/pyelonephritis or other urinary system pathology. 3. Hypoalbuminemia/protein malnutrition. 4. Moderate protein-calorie malnutrition. 5. Anemia. Looking at previous medical record, about a year ago hemoglobin was in the 13 range, today, it is 11. This could be secondary to some kind of chronic underlying illness versus subacute blood loss with 2 week history of bloody diarrhea. The patient does have GI bleed, but it does seem to be hemodynamically not significant, as he is stable with his heart rate and blood pressure. 6. Weight loss. Although the patient reports acute diarrhea and weight loss during the past 2 weeks, he appears thin overall; and other than the acute problem, he might have an underlying chronic process as well. Will require further workup. 8. Chronic medical problems including hypertension, chronic obstructive pulmonary disease and posttraumatic stress disorder appear stable. 9. Abnormal alkaline phosphatase, which could be secondary to history of liver disease, it could also be secondary to vitamin D deficiency or indicate osteoporosis. 10. Positive urinalysis/urinary tract infection. PLAN AND ORDERS 1. The patient is getting admitted as inpatient. He fulfills inpatient criteria based on creatinine more than 3 times above normal and ongoing symptoms, not being able to take oral intake. He will require IV hydration. 2. Regarding the urine infection and acute renal failure, we will continue antibiotics with ceftriaxone empirically pending urine culture. I ordered renal ultrasound to rule out urinary obstruction. 3. Regarding the diarrhea, stool cultures are sent including Clostridium difficile, ova and parasites. In the meantime, we will add empiric treatment with Flagyl. 4. Continue IV hydration. The patient received 2 liters normal saline. Overnight will receive another liter of D5 half-normal saline with potassium. 5. Considering anemia and renal failure at the same time, and also elevated alkaline phosphatase, we will order protein creatinine ratio. If the renal failure does not improve, then further workup should be ordered, perhaps looking into more chronic diagnoses other than acute diarrhea. 6. Added ESR. 7. Might require gastroenterology workup. 8. For epigastric pain and gastrointestinal bleed, we will add proton pump inhibitor. 9. Deep venous thrombosis prophylaxis with Venodyne boots. We will not use heparin considering low-grade gastrointestinal bleed. 10. Repeat laboratories in the morning. 11. Continue home medications as appropriate, including inhalers. 12. FULL CODE, which was discussed with the patient. He stated that he would not want to receive life support on long-term, but he accepts aggressive care in case of emergency. ATTESTATION: I certify that the reasonable expectation for the patient to stay hospitalized for at least 48 hrs but discharge or transfer to another facility within 96 hrs. ADDENDUM: C diff returned positive. Continued flagyl, d/c Ceftriaxone and PPI. Time spent in the care of this patient was 65 minutes. TD: 01/04/2019 21:01 MIGDALIA
[2019-01-05] MEDS: metroNIDAZOLE 500 MG/100 ML 500 MG/100 ML BAG IV SCH (04:40)
[2019-01-05] MEDS: SODIUM CHLORIDE FLUSH 0.9% 10 ML SYRINGE IVP PRN (06:33)
[2019-01-05] MEDS ORDERED: PANTOPRAZOLE 40 MG VIAL IVP SCH (07:00)
[2019-01-05 07:15] LABS: ALBUMIN 2.3 g/dL (3.2-5.5); ALBUMIN/GLOBULIN RATIO 0.5 (1.0-2.2); BILIRUBIN,TOTAL 0.9 mg/dL (0.2-1.0); CALCIUM 8.2 mg/dL (8.5-10.3); CREATININE 2.9 mg/dL (0.6-1.2); MAGNESIUM 2.1 mg/dL (1.7-2.8); TOTAL PROTEIN 6.7 g/dL (6.7-8.2)
[2019-01-05 07:16] LABS: BASOPHILS % (AUTO) 0.3 %; EOSINOPHILS % (AUTO) 0.2 %; HGB - HEMOGLOBIN 10.5 g/dL (14.0-18.0); LYMPHOCYTES # (AUTO) 0.5 10^3/uL (1.5-3.5); LYMPHOCYTES % (AUTO) 3.3 %; MEAN CORPUSCULAR HEMOGLOBIN 30.4 pg (27.0-31.0); MEAN CORPUSCULAR HGB CONC 33.7 g/dL (32.0-36.0); MEAN PLATELET VOLUME 7.2 fL (7.4-11.4); MONOCYTES # (AUTO) 0.9 10^3/uL (0.0-1.0); MONOCYTES % (AUTO) 6.2 %; NEUTROPHILS # (AUTO) 13.5 10^3/uL (1.5-6.6); PLT - PLATELET COUNT 353 10^3/uL (130-450); RED BLOOD COUNT 3.46 10^6/uL (4.70-6.10); RED CELL DISTRIBUTION WIDTH 15.3 % (12.0-15.0)
--- NOTE | 2019-01-05 07:36 | Ultrasound Report ---
Reason: renal failure Procedure Date: 01/05/2019 Accession Number: [id number] / [id number] Procedure: US - Retroperitoneal CPT Code: FULL RESULT: EXAM: RENAL ULTRASOUND EXAM DATE: 01/05/2019 06:35 AM. CLINICAL HISTORY: Renal failure. COMPARISON: Right upper quadrant ultrasound 08/18/2016. TECHNIQUE: Real-time scanning was performed with static images obtained. FINDINGS: Right Kidney: 13 x 6.8 x 7.8 cm. No hydronephrosis or shadowing stones. Variant extrarenal pelvis. Increased renal parenchymal echogenicity, without cortical thinning. Grossly simple cysts 1.8 x 1.6 x 1.7 cm and 1.9 x 1.5 x 1.4 cm. No solid mass or perinephric fluid. Left Kidney: 13.1 x 6.1 x 4.7 cm. Borderline hydronephrosis. Nonspecific 3 mm nonshadowing echogenic focus midpole. No shadowing stones. Increased renal parenchymal echogenicity, without significant cortical thinning. Prominent column of Joel. Small inferior pole cyst 0.9 x 0.5 x 1.1 cm. No perinephric fluid. Bladder: Mildly trabeculated bladder wall. Bilateral jets seen. The prevoid bladder volume was 385 cc. The postvoid bladder volume was 331 cc. Some layering dependent echoes including a vague small echogenic focus in the bladder near left UVJ. A small posterior right lateral bladder diverticulum. Other: Prostate does not appear grossly enlarged but is suboptimally seen. IMPRESSION: 1. Echogenic bilateral kidneys suggestive of chronic renal parenchymal disease. No renal atrophy. 2. Borderline left hydronephrosis. No suggestion of high-grade ureteral obstruction. 3. Nonspecific small nonshadowing foci in the left kidney. No shadowing stones. Notice that ultrasound is not sensitive for detecting small nonobstructive stones. 4. Small bilateral renal cysts. 5. Mildly trabeculated bladder with considerable postvoid residual of 331 cc. A small bladder diverticulum. 6. Modest dependent layering debris/sediment in the bladder. A possible small extruded stone in the bladder. RADIA
[2019-01-05] MEDS: BUDESONIDE 0.5 MG/2 ML NEB INH SCH ×2 (08:11→19:49)
[2019-01-05] MEDS: METOPROLOL SUCCINATE 25 MG TABLET PO SCH (08:30)
[2019-01-05] MEDS ORDERED: POLYETHYLENE GLYCOL 3350 17 GM PACKET PO SCH (09:00)
[2019-01-05] MEDS: VANCOMYCIN 125 MG CAPSULE PO SCH ×4 (11:28→20:42)
[2019-01-05] MEDS: ACETAMINOPHEN 325 MG TABLET PO PRN (14:15)
[2019-01-05] MEDS: MULTIVITAMIN W/MINERALS TABLET PO SCH (14:16)
[2019-01-05] MEDS: SACCHAROMYCES BOULARDII 250 MG CAPSULE PO SCH (17:03)
--- NOTE | 2019-01-05 18:00 | PROVIDER PROGRESS NOTE ---
Subjective - Prog Note Date Prog Note Date: 01/05/19 Prog Note Time: 18:00 - Subjective Pt reports feeling: Improved Subjective: Jennifer offers no complaints and feels much improved since arriving in the ED. He still has mild tenderness and bloating in all 4-quadrants of his abdomen. He denies headaches, chest pain, nausea, vomiting, a new rash or a new cough. He has had a huge reduction in the amount of stools to several per day, now only 3 today. The stool is still loose, no further incontinence. Current Medications - Current Medications Current Medications: Active Medications: Acetaminophen (Tylenol) 650 mg PO Q4HR PRN Albuterol/Ipratropium (Duoneb) 3 ml INH RTQ4H PRN Budesonide (Pulmicort) 0.5 mg INH RTBID DAVID Metoprolol Succinate (Toprol Xl) 25 mg PO DAILY [facility] Multivitamins/Minerals (Theragran M) 1 tab PO DAILYWM [facility] Oxycodone HCl (Roxicodone) 5 mg PO Q4HR PRN Saccharomyces Boulardii (Florastor) 500 mg PO BIDWM [facility] Temazepam (Restoril) 15 mg PO QPM PRN Vancomycin HCl (Vancocin) 125 mg PO QID [facility] HOME meds: Albuterol Sulf [Ventolin Hfa Inhaler] 2 puffs INH Q4H PRN 06/20/18 Metoprolol Succinate 25 mg PO DAILY 06/20/18 Tiotropium Nada [Spiriva] 1 puffs INH DAILY 06/20/18 Umeclidinium Brm/Vilanterol Tr [Anoro Ellipta 62.5-25 Mcg INH] 1 puffs INH DAILY 06/20/18 Amlodipine Besylate 10 mg PO DAILY 01/04/19 FLUoxetine [PROzac] 20 mg PO DAILY 01/04/19 Fluticasone Propionate 2 spray AWA DAILY 01/04/19 Naproxen 375 mg PO BID 01/04/19 Tramadol HCl 50 mg PO DAILY PRN 01/04/19 Objective - Vital Signs/Intake & Output Reviewed Vital Signs: Yes Vital Signs: Vital Signs x48h Temp Pulse Resp BP Pulse Ox 01/05/19 15:57 36.7 C 66 18 132/88 H 99 01/05/19 11:30 36.6 C 67 18 142/92 H 97 Intake & Output: Intake & Output 01/02/19 01/03/19 01/04/19 01/05/19 23:59 23:59 23:59 23:59 Intake Total 1936 3010 Output Total 100 2275 Balance 1836 735 - Objective General Appearance: positive: Alert, Mild distress Eyes Bilateral: positive: PERRL ENT: positive: Pharynx nml, No signs of dehydration Neck: positive: Thyroid nml, No JVD, Trachea midline Respiratory: positive: Chest non-tender, No respiratory distress, Breath sounds nml Cardiovascular: positive: Regular rate & rhythm, No gallop, Systolic murmur Peripheral Pulses: 1+ Radial (R), 1+ Radial (L) Abdomen: positive: Non-tender, Nml bowel sounds Back: positive: Nml inspection Skin: positive: Color nml, No rash, Warm, Dry Extremities: positive: Non-tender, Full ROM, Nml appearance, No pedal edema Neurologic/Psychiatric: positive: Oriented x3, CN's nml (2-12), Motor nml, Sensation nml, Depressed mood/affect Reflexes: Bicep (R): 3+, Bicep (L): 3+ - Lab Results Fish Bones: 01/06/19 06:01 01/06/19 06:01 Other Labs: Lab Results x24hrs 01/05/19 01/05/19 01/05/19 Range/Units 06:49 06:49 06:49 WBC 15.0 H (4.8-10.8) x10^3/uL RBC 3.46 L (4.70-6.10) 10^6/uL Hgb 10.5 L (14.0-18.0) g/dL Hct 31.2 L (42.0-52.0) % MCV 90.0 (80.0-94.0) fL MCH 30.4 (27.0-31.0) pg MCHC 33.7 (32.0-36.0) g/dL RDW 15.3 H (12.0-15.0) % Plt Count 353 (130-450) 10^3/uL MPV 7.2 L (7.4-11.4) fL Neut # (Auto) 13.5 H (1.5-6.6) 10^3/uL Lymph # (Auto) 0.5 L (1.5-3.5) 10^3/uL [place] # (Auto) 0.9 (0.0-1.0) 10^3/uL Eos # (Auto) 0.0 (0.0-0.7) 10^3/uL Baso # (Auto) 0.0 (0.0-0.1) 10^3/uL Absolute Nucleated RBC 0.01 x10^3/uL Nucleated RBC % 0.0 /100WBC ESR (0-20) mm/Hr Sodium 138 (135-145) mmol/L Potassium 4.0 (3.5-5.0) mmol/L Chloride 106 (101-111) mmol/L Carbon Dioxide 20 L (21-32) mmol/L Anion Gap 12.0 (6-13) BUN 70 H (6-20) mg/dL Creatinine 2.9 H (0.6-1.2) mg/dL Estimated GFR (MDRD) 22 L (>89) Glucose 118 H (70-100) mg/dL Calcium 8.2 L (8.5-10.3) mg/dL Magnesium 2.1 (1.7-2.8) mg/dL Total Bilirubin 0.9 (0.2-1.0) mg/dL AST 12 (10-42) IU/L ALT 16 (10-60) IU/L Alkaline Phosphatase 141 H (42-121) IU/L Total Protein 6.7 (6.7-8.2) g/dL Albumin 2.3 L (3.2-5.5) g/dL Globulin 4.4 H (2.1-4.2) g/dL Albumin/Globulin Ratio 0.5 L (1.0-2.2) TSH 2.08 (0.34-5.60) uIU/mL Urine Creatinine mg/dL Urine Microalbumin (0-300.0) mg/dL Microalb/Creat Ratio (<30.0) ug/mg C. difficile Tox B Gene (NEGATIVE) 01/04/19 01/04/19 01/04/19 Range/Units 17:25 16:15 01:10 WBC (4.8-10.8) x10^3/uL RBC (4.70-6.10) 10^6/uL Hgb (14.0-18.0) g/dL Hct (42.0-52.0) % MCV (80.0-94.0) fL MCH (27.0-31.0) pg MCHC (32.0-36.0) g/dL RDW (12.0-15.0) % Plt Count (130-450) 10^3/uL MPV (7.4-11.4) fL Neut # (Auto) (1.5-6.6) 10^3/uL Lymph # (Auto) (1.5-3.5) 10^3/uL [place] # (Auto) (0.0-1.0) 10^3/uL Eos # (Auto) (0.0-0.7) 10^3/uL Baso # (Auto) (0.0-0.1) 10^3/uL Absolute Nucleated RBC x10^3/uL Nucleated RBC % /100WBC ESR 96 H (0-20) mm/Hr Sodium (135-145) mmol/L Potassium (3.5-5.0) mmol/L Chloride (101-111) mmol/L Carbon Dioxide (21-32) mmol/L Anion Gap (6-13) BUN (6-20) mg/dL Creatinine (0.6-1.2) mg/dL Estimated GFR (MDRD) (>89) Glucose (70-100) mg/dL Calcium (8.5-10.3) mg/dL Magnesium (1.7-2.8) mg/dL Total Bilirubin (0.2-1.0) mg/dL AST (10-42) IU/L ALT (10-60) IU/L Alkaline Phosphatase (42-121) IU/L Total Protein (6.7-8.2) g/dL Albumin (3.2-5.5) g/dL Globulin (2.1-4.2) g/dL Albumin/Globulin Ratio (1.0-2.2) TSH (0.34-5.60) uIU/mL Urine Creatinine 70.4 mg/dL Urine Microalbumin 11.1 (0-300.0) mg/dL Microalb/Creat Ratio 157.7 H (<30.0) ug/mg C. difficile Tox B Gene POSITIVE A* (NEGATIVE) ABX Reporting Has patient been on IV antibiotics over the past 48 hours?: Yes Assessment/Plan - Problem List (1) Clostridium difficile infection Impression: - A stool sample obtained upon admission was + for c. diff - Patient admits to recent hospital imaging at [place] and at [facility] - Unknown how he may have contracted this infection, no sick contacts that he mentions - Stool episodes have dramatically improved, now only a few episodes today and no longer incontinent Plan: Start oral vanco, stop IV flagyl, add a probiotic (2) ARF (acute renal failure) Impression: - Baseline creatinine is ~ 1.0 - Very abnormal creatinine at 3.3, now down to 2.9 - Likely a consequence of dehydration Plan: Continue IVFs, monitor urine output Qualifiers: Acute renal failure type: unspecified Qualified Code(s): N17.9 - Acute kidney failure, unspecified (3) E. coli UTI (urinary tract infection) Impression: - Preliminary urine culture results show e coli - Status post IV flagyl - Now remains on oral vanco - Denies dysuria Plan: Continue oral vanco, await culture results (4) Elevated BUN Impression: - BUN 84 on admission - Baseline BUN has been WNLs - now BUN is down to 70 - Likely due to profound dehydration Plan: Follow labs, continue IVFs (5) Diarrhea Impression: - Only a few stools today as compared to several yesterday - Admits to being incontinent of stool, now resolved - Denies any rectal soreness as a consequence of frequent stools Plan: Continue to treat c- diff, anticipate home tomorrow on oral vanco or Flagyl Qualifiers: Diarrhea type: presumed infectious Qualified Code(s): R19.7 - Diarrhea, unspecified (6) COPD (chronic obstructive pulmonary disease) Impression: - Status post tobacco use - Quit smoking ~ 6 months ago - No recent PNA - Uses Spiriva and Advair at home Plan: Continues on Budesinide per RT Qualifiers: COPD type: emphysema
[2019-01-05] MEDS: IPRATROPIUM/ALBUTEROL 3 ML NEB INH PRN (19:49)
[2019-01-06] MEDS: ACETAMINOPHEN 325 MG TABLET PO PRN ×2 (01:27→16:23)
[2019-01-06] MEDS: SODIUM CHLORIDE FLUSH 0.9% 10 ML SYRINGE IVP SCH ×3 (01:36→16:18)
[2019-01-06 06:16] LABS: BASOPHILS # (AUTO) 0.1 10^3/uL (0.0-0.1); BASOPHILS % (AUTO) 0.4 %; EOSINOPHILS # (AUTO) 0.1 10^3/uL (0.0-0.7); EOSINOPHILS % (AUTO) 0.4 %; HGB - HEMOGLOBIN 9.8 g/dL (14.0-18.0); LYMPHOCYTES # (AUTO) 0.9 10^3/uL (1.5-3.5); LYMPHOCYTES % (AUTO) 6.2 %; MEAN CORPUSCULAR HEMOGLOBIN 30.5 pg (27.0-31.0); MEAN CORPUSCULAR HGB CONC 33.9 g/dL (32.0-36.0); MEAN CORPUSCULAR VOLUME 89.9 fL (80.0-94.0); MONOCYTES # (AUTO) 0.9 10^3/uL (0.0-1.0); NEUTROPHILS # (AUTO) 12.4 10^3/uL (1.5-6.6); PLT - PLATELET COUNT 385 10^3/uL (130-450); RED BLOOD COUNT 3.21 10^6/uL (4.70-6.10); RED CELL DISTRIBUTION WIDTH 14.7 % (12.0-15.0); WHITE BLOOD COUNT 14.2 x10^3/uL (4.8-10.8)
[2019-01-06 06:34] LABS: ALBUMIN 2.2 g/dL (3.2-5.5); ALBUMIN/GLOBULIN RATIO 0.6 (1.0-2.2); BILIRUBIN,TOTAL 0.7 mg/dL (0.2-1.0); CALCIUM 8.3 mg/dL (8.5-10.3); CREATININE 2.6 mg/dL (0.6-1.2); CRP - C-REACTIVE PROTEIN 11.6 mg/dL (0-1.0); MAGNESIUM 1.9 mg/dL (1.7-2.8); PHOSPHORUS 4.1 mg/dL (2.5-4.6); TOTAL PROTEIN 6.2 g/dL (6.7-8.2)
[2019-01-06 08:19] LABS: % IRON SATURATION 10 % (20-50); IRON 25 ug/dL (45-182); TOTAL IRON BINDING CAPACITY 242 ug/dL (250-450); TRANSFERRIN 173 mg/dL (180-329)
[2019-01-06] MEDS: IPRATROPIUM/ALBUTEROL 3 ML NEB INH PRN ×2 (10:08→19:16)
[2019-01-06] MEDS: BUDESONIDE 0.5 MG/2 ML NEB INH SCH ×2 (10:08→19:16)
[2019-01-06] MEDS: VANCOMYCIN 125 MG CAPSULE PO SCH ×4 (10:12→20:56)
[2019-01-06] MEDS: MULTIVITAMIN W/MINERALS TABLET PO SCH (10:12)
[2019-01-06] MEDS: SACCHAROMYCES BOULARDII 250 MG CAPSULE PO SCH ×2 (10:12→16:18)
[2019-01-06] MEDS: METOPROLOL SUCCINATE 25 MG TABLET PO SCH (10:13)
[2019-01-06] MEDS: FAMOTIDINE 20 MG TABLET PO SCH (10:13)
[2019-01-06] MEDS: AMOX/CLAV 500 MG/125 MG TABLET PO SCH ×2 (13:19→20:56)
[2019-01-06] MEDS: SODIUM CHLORIDE 0.9% 1,000 ML IV SCH ×2 (14:53→23:58)
[2019-01-06] MEDS: SODIUM CHLORIDE FLUSH 0.9% 10 ML SYRINGE IVP PRN (14:53)
[2019-01-07] MEDS: ACETAMINOPHEN 325 MG TABLET PO PRN ×3 (00:07→20:34)
[2019-01-07] MEDS: SODIUM CHLORIDE FLUSH 0.9% 10 ML SYRINGE IVP SCH ×3 (01:09→16:43)
[2019-01-07] MEDS: BUDESONIDE 0.5 MG/2 ML NEB INH SCH ×2 (08:10→19:17)
[2019-01-07] MEDS: IPRATROPIUM/ALBUTEROL 3 ML NEB INH PRN ×2 (08:10→19:17)
[2019-01-07] MEDS: METOPROLOL SUCCINATE 25 MG TABLET PO SCH (08:56)
[2019-01-07] MEDS: FAMOTIDINE 20 MG TABLET PO SCH (08:56)
[2019-01-07] MEDS: VANCOMYCIN 125 MG CAPSULE PO SCH ×4 (08:56→20:34)
[2019-01-07] MEDS: AMOX/CLAV 500 MG/125 MG TABLET PO SCH ×2 (08:56→20:34)
[2019-01-07] MEDS: SACCHAROMYCES BOULARDII 250 MG CAPSULE PO SCH ×2 (08:56→16:42)
[2019-01-07] MEDS: MULTIVITAMIN W/MINERALS TABLET PO SCH (08:56)
[2019-01-07] MEDS: SODIUM CHLORIDE 0.9% 1,000 ML IV SCH ×2 (08:57→16:41)
--- NOTE | 2019-01-07 09:06 | PROVIDER PROGRESS NOTE ---
Subjective - Prog Note Date Prog Note Date: 01/06/19 Prog Note Time: 08:00 - Subjective Pt reports feeling: No change Subjective: Jennifer complains of slight urinary retention and continued stools. He still feels generally ill today. He denies chest pain, shortness of breath, a rash, or a new cough. He continues to have a good appetite without nausea. Current Medications - Current Medications Current Medications: Active Medications: Acetaminophen (Tylenol) 650 mg PO Q4HR PRN Albuterol/Ipratropium (Duoneb) 3 ml INH RTQ4H PRN Amoxicillin/Clavulanate Potassium (Augmentin 500/125) 1 tab PO BID DAVID Budesonide (Pulmicort) 0.5 mg INH RTBID DAVID Famotidine (Pepcid) 20 mg PO DAILY [facility] Sodium Chloride (Normal Saline 0.9%) 1,000 mls @ 125 mls/hr IV .Q8H DAVID Metoprolol Succinate (Toprol Xl) 25 mg PO DAILY [facility] Multivitamins/Minerals (Theragran M) 1 tab PO DAILYWM [facility] Oxycodone HCl (Roxicodone) 5 mg PO Q4HR PRN Saccharomyces Boulardii (Florastor) 500 mg PO BIDWM [facility] Temazepam (Restoril) 15 mg PO QPM PRN Vancomycin HCl (Vancocin) 125 mg PO QID [facility] HOME meds: Albuterol Sulf [Ventolin Hfa Inhaler] 2 puffs INH Q4H PRN 06/20/18 Metoprolol Succinate 25 mg PO DAILY 06/20/18 Tiotropium [place] [Spiriva] 1 puffs INH DAILY 06/20/18 Umeclidinium Brm/Vilanterol Tr [Anoro Ellipta 62.5-25 Mcg INH] 1 puffs INH DAILY 06/20/18 Amlodipine Besylate 10 mg PO DAILY 01/04/19 FLUoxetine [PROzac] 20 mg PO DAILY 01/04/19 Fluticasone Propionate 2 spray AWA DAILY 01/04/19 Naproxen 375 mg PO BID 01/04/19 Tramadol HCl 50 mg PO DAILY PRN 01/04/19 Objective - Vital Signs/Intake & Output Reviewed Vital Signs: Yes Vital Signs: Vital Signs x48h Temp Pulse Pulse Resp BP Pulse Ox 01/07/19 08:37 36.6 C 70 20 148/89 H 98 01/07/19 08:10 66 16 01/07/19 03:52 60 126/90 H Intake & Output: Intake & Output 01/04/19 01/05/19 01/06/19 01/07/19 23:59 23:59 23:59 23:59 Intake Total 1936 3310 3690 1400.000 Output Total 100 3025 2825 225 Balance 1836 350 670 1818.000 - Objective General Appearance: positive: No acute distress, Alert Eyes Bilateral: positive: PERRL ENT: positive: ENT inspection nml, Pharynx nml, Dry mucous membranes Neck: positive: Thyroid nml, No JVD, Trachea midline Respiratory: positive: Chest non-tender, No respiratory distress, Other (diminished bilaterally) Cardiovascular: positive: Regular rate & rhythm, No gallop, Systolic murmur Peripheral Pulses: 1+ Radial (R), 1+ Radial (L) Abdomen: positive: Nml bowel sounds, Tenderness, Guarding Back: positive: Nml inspection Skin: positive: No rash, Warm, Dry Extremities: positive: Non-tender, Full ROM, Nml appearance, No pedal edema Neurologic/Psychiatric: positive: Oriented x3, CN's nml (2-12), Motor nml, Sensation nml, Mood/affect nml Reflexes: Bicep (R): 3+, Bicep (L): 3+ - Lab Results Fish Bones: 01/07/19 09:04 01/07/19 09:04 Other Labs: Lab Results x24hrs 01/06/19 Range/Units 06:01 Vitamin B12 1966 H (180-914) pg/mL ABX Reporting Has patient been on IV antibiotics over the past 48 hours?: No Assessment/Plan - Problem List (1) Clostridium difficile infection Impression: - A stool sample obtained upon admission was + for c. diff - Patient admits to recent hospital imaging at [place] and at [facility] - Unknown how he may have contracted this infection, no sick contacts that he mentions - Stool episodes have dramatically improved, now only a few episodes today and no longer incontinent Plan: Continue oral vanco, probiotic (2) ARF (acute renal failure) Impression: - Baseline creatinine is ~ 1.0 - Very abnormal creatinine at 3.3, now down to 2.6 - Likely a consequence of dehydration Plan: Continue IVFs, monitor urine output Qualifiers: Acute renal failure type: unspecified Qualified Code(s): N17.9 - Acute kidney failure, unspecified (3) E. coli UTI (urinary tract infection) Impression: - Urine culture results show e coli - Status post IV flagyl - Now remains on oral vanco, with Augmentin for this acute infection - Complains of dysuria, frequency, urgency and a burning sensation at the beginning of his stream Plan: Continue oral Augmentin, plan for an extended treatment of at least 21 days to penetrate the prostate (4) Elevated BUN Impression: - BUN 84 on admission - Baseline BUN has been WNLs - now BUN is down to 55 - Likely due to profound dehydration Plan: Follow labs, restart IVFs (5) Diarrhea Impression: - Only a few stools today as compared to several on admission - Admits to being incontinent of stool, now resolved - Denies any rectal soreness as a consequence of frequent stools Plan: Continue to treat c- diff, will continue vanco or Flagyl upon discharge Qualifiers: Diarrhea type: presumed infectious Qualified Code(s): R19.7 - Diarrhea, unspecified (6) COPD (chronic obstructive pulmonary disease) Impression: - Status post tobacco use - Quit smoking ~ 6 months ago - No recent PNA - Uses Spiriva and Advair at home Plan: Continues on Budesinide per RT Qualifiers: COPD type: emphysema
--- NOTE | 2019-01-07 09:07 | PROVIDER PROGRESS NOTE ---
Subjective - Prog Note Date Prog Note Date: 01/07/19 Prog Note Time: 09:07 - Subjective Pt reports feeling: Improved Subjective: Jennifer's son was in the room and was given a medical update. Jennifer complains of ongoing dysuria, rectal soreness, and overall generalized fatigue. He denies chest pain, shortness of breath, a rash, or a new cough. Current Medications - Current Medications Current Medications: Active Medications Acetaminophen (Tylenol) 650 mg PO Q4HR PRN PRN Reason: Pain or Fever > 38C (100.4F) Last Admin: 01/07/19 20:34 Dose: 650 mg Albuterol/Ipratropium (Duoneb) 3 ml INH RTQ4H PRN PRN Reason: Wheezing Last Admin: 01/07/19 19:17 Dose: 3 ml Amoxicillin/Clavulanate Potassium (Augmentin 500/125) 1 tab PO BID [facility] Last Admin: 01/07/19 20:34 Dose: 1 tab Budesonide (Pulmicort) 0.5 mg INH RTBID [facility] Last Admin: 01/07/19 19:17 Dose: 0.5 mg Famotidine (Pepcid) 20 mg PO DAILY [facility] Last Admin: 01/07/19 08:56 Dose: 20 mg Metoprolol Succinate (Toprol Xl) 25 mg PO DAILY [facility] Last Admin: 01/07/19 08:56 Dose: 25 mg Multivitamins/Minerals (Theragran M) 1 tab PO DAILYWM [facility] Last Admin: 01/07/19 08:56 Dose: 1 tab Oxycodone HCl (Roxicodone) 5 mg PO Q4HR PRN PRN Reason: Pain 8 to 10 Saccharomyces Boulardii (Florastor) 500 mg PO BIDWM [facility] Last Admin: 01/07/19 16:42 Dose: 500 mg Sodium Chloride (Normal Saline Flush 0.9%) 10 ml IVP PRN PRN PRN Reason: NEEDED PER PROVIDER ORDERS Last Admin: 01/06/19 14:53 Dose: 10 ml Sodium Chloride (Normal Saline Flush 0.9%) 10 ml IVP 0100,0900,1700 [facility] Last Admin: 01/07/19 16:43 Dose: Not Given Tamsulosin HCl (Flomax) 0.4 mg PO DAILY [facility] Temazepam (Restoril) 15 mg PO QPM PRN PRN Reason: Insomnia Last Admin: 01/07/19 20:34 Dose: 15 mg Vancomycin HCl (Vancocin) 125 mg PO QID [facility] Last Admin: 01/07/19 20:34 Dose: 125 mg Vitamin A/Vitamin D (Vitamin A & D Ointment) 1 applic TOP TID [facility] Albuterol Sulf [Ventolin Hfa Inhaler] 2 puffs INH Q4H PRN 06/20/18 Metoprolol Succinate 25 mg PO DAILY 06/20/18 Tiotropium [place] [Spiriva] 1 puffs INH DAILY 06/20/18 Umeclidinium Brm/Vilanterol Tr [Anoro Ellipta 62.5-25 Mcg INH] 1 puffs INH DAILY 06/20/18 Amlodipine Besylate 10 mg PO DAILY 01/04/19 FLUoxetine [PROzac] 20 mg PO DAILY 01/04/19 Fluticasone Propionate 2 spray AWA DAILY 01/04/19 Naproxen 375 mg PO BID 01/04/19 Tramadol HCl 50 mg PO DAILY PRN 01/04/19 Objective - Vital Signs/Intake & Output Reviewed Vital Signs: Yes Vital Signs: Vital Signs x48h Temp Pulse Pulse Resp BP Pulse Ox 01/07/19 08:37 36.6 C 70 20 148/89 H 98 01/07/19 08:10 66 16 01/07/19 03:52 60 126/90 H Intake & Output: Intake & Output 01/04/19 01/05/19 01/06/19 01/07/19 23:59 23:59 23:59 23:59 Intake Total 1936 3310 3690 1400.000 Output Total 100 3025 2825 225 Balance 1836 833 700 2121.000 - Objective General Appearance: positive: No acute distress, Alert Eyes Bilateral: positive: PERRL Eyes: OU Conjunctivae pale ENT: positive: Pharynx nml, No signs of dehydration Neck: positive: Thyroid nml, No JVD, Trachea midline Respiratory: positive: Chest non-tender, No respiratory distress, Other (crackles to right lower lobe) Cardiovascular: positive: Regular rate & rhythm, No gallop, Systolic murmur Peripheral Pulses: 1+ Radial (R), 1+ Radial (L) Abdomen: positive: Nml bowel sounds, Tenderness (LLQ), Guarding, Other (rounded, soft) Skin: positive: No rash, Warm, Dry Extremities: positive: Non-tender, Full ROM, Nml appearance, No pedal edema Neurologic/Psychiatric: positive: Oriented x3, CN's nml (2-12), Motor nml, Sensation nml, Weakness, Depressed mood/affect Reflexes: Bicep (R): 3+, Bicep (L): 3+ - Lab Results Fish Bones: 01/07/19 09:04 01/07/19 09:04 Other Labs: Lab Results x24hrs 01/06/19 Range/Units 06:01 Vitamin B12 1966 H (180-914) pg/mL ABX Reporting Has patient been on IV antibiotics over the past 48 hours?: No Assessment/Plan - Problem List (1) Urinary retention Impression: - Bladder scan amounts are showing high residuals of ~400-500 mL - Flomax to start in the AM - Urine output is plentiful - Clear, yellow on exam today - Still complains of dysuria, frequency and urgency - Refuses an indwelling malin Plan: Continue bladder scans, start flomax in the AM, evaluate for the need for an indwelling malin on discharge (2) Clostridium difficile infection Impression: - A stool sample obtained upon admission was + for c. diff - Patient admits to recent hospital imaging at [place] and at [facility] - Unknown how he may have contracted this infection, no sick contacts that he mentions - Stool episodes have dramatically improved, now only a few episodes per day and no longer incontinent - Admits to mild rectal irritation since having frequent stools Plan: Continue oral vanco, probiotic, A & D to be applied to rectal skin (3) ARF (acute renal failure) Impression: - Baseline creatinine is ~ 1.0 - Very abnormal creatinine at 3.3, now down to 2.4 - Likely a consequence of dehydration - Urine output has improve, and the urine appearance is now clear yellow Plan: Continue IVFs throughout today, cap off later tonight to promote sleep, monitor urine output and re-check labs in the AM Qualifiers: Acute renal failure type: unspecified Qualified Code(s): N17.9 - Acute kidney failure, unspecified (4) E. coli UTI (urinary tract infection) Impression: - Urine culture results show e coli - Status post IV flagyl - Now remains on oral vanco, with Augmentin for this acute infection - Complains of dysuria, frequency, urgency and a burning sensation at the beginning of his stream - Overall, the dysuria has improved, now with frequency as the complaint - Plan to cap IVFs later this evening to promote sleep Plan: Continue oral Augmentin, plan for an extended treatment of at least 21 days to penetrate the prostate (5) Elevated BUN Impression: - BUN 84 on admission - Baseline BUN has been WNLs - now BUN is down to 38 - Likely due to profound dehydration Plan: Follow labs, restart IVFs (6) Diarrhea Impression: - Only a few stools today as compared to several on admission - Admits to being incontinent of stool, now resolved - Now complains of rectal soreness as a consequence of frequent stools Plan: Continue to treat c- diff, will continue vanco or Flagyl upon discharge, A & D ointment to be applied TID Qualifiers: Diarrhea type: presumed infectious Qualified Code(s): R19.7 - Diarrhea, unspecified (7) COPD (chronic obstructive pulmonary disease) Impression: - Status post tobacco use - Quit smoking ~ 6 months ago - No recent PNA - Uses Spiriva and Advair at home - Incentive spirometry ordered for crackles in right low lobe base on exam Plan: Continues on Budesinide per RT Qualifiers: COPD type: emphysema
[2019-01-07 09:20] LABS: BASOPHILS % (AUTO) 0.1 %; EOSINOPHILS # (AUTO) 0.1 10^3/uL (0.0-0.7); EOSINOPHILS % (AUTO) 0.5 %; HGB - HEMOGLOBIN 9.9 g/dL (14.0-18.0); LYMPHOCYTES # (AUTO) 0.7 10^3/uL (1.5-3.5); LYMPHOCYTES % (AUTO) 5.8 %; MEAN CORPUSCULAR HEMOGLOBIN 29.7 pg (27.0-31.0); MEAN CORPUSCULAR HGB CONC 32.6 g/dL (32.0-36.0); MEAN CORPUSCULAR VOLUME 90.9 fL (80.0-94.0); MEAN PLATELET VOLUME 7.1 fL (7.4-11.4); MONOCYTES # (AUTO) 0.6 10^3/uL (0.0-1.0); NEUTROPHILS # (AUTO) 10.9 10^3/uL (1.5-6.6); NEUTROPHILS % (AUTO) 88.6 %; PLT - PLATELET COUNT 466 10^3/uL (130-450); RED BLOOD COUNT 3.33 10^6/uL (4.70-6.10); RED CELL DISTRIBUTION WIDTH 15.1 % (12.0-15.0); WHITE BLOOD COUNT 12.3 x10^3/uL (4.8-10.8)
[2019-01-07 09:27] LABS: CALCIUM 8.3 mg/dL (8.5-10.3); CREATININE 2.4 mg/dL (0.6-1.2); MAGNESIUM 1.8 mg/dL (1.7-2.8)
[2019-01-07] MEDS: MAGNESIUM OXIDE 400 MG TABLET PO SCH (22:10)
[2019-01-07] MEDS: A & D OINTMENT 5 GM PACKET TOP SCH (22:10)
[2019-01-08] MEDS: SODIUM CHLORIDE FLUSH 0.9% 10 ML SYRINGE IVP SCH ×2 (00:24→08:09)
[2019-01-08 05:55] LABS: BASOPHILS # (AUTO) 0.1 10^3/uL (0.0-0.1); BASOPHILS % (AUTO) 0.9 %; EOSINOPHILS % (AUTO) 0.2 %; HGB - HEMOGLOBIN 9.5 g/dL (14.0-18.0); LYMPHOCYTES # (AUTO) 0.7 10^3/uL (1.5-3.5); LYMPHOCYTES % (AUTO) 4.9 %; MEAN CORPUSCULAR VOLUME 90.9 fL (80.0-94.0); MEAN PLATELET VOLUME 6.9 fL (7.4-11.4); MONOCYTES # (AUTO) 0.7 10^3/uL (0.0-1.0); MONOCYTES % (AUTO) 5.4 %; NEUTROPHILS % (AUTO) 88.6 %; PLT - PLATELET COUNT 459 10^3/uL (130-450); RED BLOOD COUNT 3.16 10^6/uL (4.70-6.10); RED CELL DISTRIBUTION WIDTH 14.8 % (12.0-15.0); WHITE BLOOD COUNT 13.5 x10^3/uL (4.8-10.8)
[2019-01-08 06:05] LABS: ALBUMIN 2.5 g/dL (3.2-5.5); ALBUMIN/GLOBULIN RATIO 0.6 (1.0-2.2); BILIRUBIN,TOTAL 0.3 mg/dL (0.2-1.0); CALCIUM 8.3 mg/dL (8.5-10.3); CREATININE 2.3 mg/dL (0.6-1.2); MAGNESIUM 1.7 mg/dL (1.7-2.8); TOTAL PROTEIN 6.6 g/dL (6.7-8.2)
[2019-01-08] MEDS: A & D OINTMENT 5 GM PACKET TOP SCH (06:53)
[2019-01-08] MEDS: BUDESONIDE 0.5 MG/2 ML NEB INH SCH (08:01)
[2019-01-08] MEDS: IPRATROPIUM/ALBUTEROL 3 ML NEB INH PRN (08:01)
[2019-01-08] MEDS: SACCHAROMYCES BOULARDII 250 MG CAPSULE PO SCH (08:08)
[2019-01-08] MEDS: FAMOTIDINE 20 MG TABLET PO SCH (08:08)
[2019-01-08] MEDS: MAGNESIUM OXIDE 400 MG TABLET PO SCH (08:08)
[2019-01-08] MEDS: AMOX/CLAV 500 MG/125 MG TABLET PO SCH (08:08)
[2019-01-08] MEDS: MULTIVITAMIN W/MINERALS TABLET PO SCH (08:08)
[2019-01-08] MEDS: METOPROLOL SUCCINATE 25 MG TABLET PO SCH (08:08)
[2019-01-08] MEDS: VANCOMYCIN 125 MG CAPSULE PO SCH ×2 (08:09→13:02)
[2019-01-08] MEDS ORDERED: FLUoxetine 10 MG CAPSULE PO SCH (09:00)
[2019-01-08] MEDS ORDERED: TAMSULOSIN 0.4 MG CAPSULE PO SCH (09:00)
[2019-01-08] MEDS ORDERED: FERROUS GLUCONATE 324 MG TABLET PO SCH (09:00)
[2019-01-08] MEDS ORDERED: amLODIPine 5 MG TABLET PO SCH (09:00)
--- NOTE | 2019-01-08 09:50 | CT Report ---
Reason: evaluate for pyelonephritis Procedure Date: 01/08/2019 Accession Number: [id number] / [id number] Procedure: CT - Abdomen/Pelvis WO CPT Code: FULL RESULT: EXAM: CT ABDOMEN AND PELVIS (CT KUB) EXAM DATE: 01/08/2019 08:57 AM. CLINICAL HISTORY: Evaluate for pyelonephritis. COMPARISONS: Abdominal ultrasound 01/05/2019. TECHNIQUE: Routine axial helical CT imaging was performed through the abdomen and pelvis without IV contrast. Reconstructions: Coronal and sagittal. In accordance with CT protocol optimization, one or more of the following dose reduction techniques were utilized for this exam: automated exposure control, adjustment of mA and/or KV based on patient size, or use of iterative reconstructive technique. FINDINGS: Lung Bases: Unremarkable. Right Kidney/Ureter: No stones, hydronephrosis, or hydroureter. No perinephric fat stranding. Left Kidney/Ureter: No stones, hydronephrosis, or hydroureter. No perinephric fat stranding. Other Solid Organs: Noncontrast images of the solid organs are grossly unremarkable. Gallbladder/Bile Ducts: Unremarkable. Peritoneal Cavity: No free fluid, free air or tamar adenopathy. Bowel is grossly unremarkable. Pelvic Organs: No bladder stones or wall thickening. Noncontrast images of the visualized pelvic organs are unremarkable. Vasculature: Unremarkable. Other: Mild dilatation of fluid-filled stomach. No suspicious bone lesion. Advanced degenerative disease at L2-L3 and L3-L4. No compression fracture. Moderate left hip joint osteoarthritis. IMPRESSION: 1. No evidence of urolithiasis or ureteral obstruction. 2. No CT suggestion of pyelonephritis. 3. No suspicious renal mass allowing for absence of intravenous contrast. RADIA
--- NOTE | 2019-01-08 11:47 | Discharge Plan ---
Discharge Plan Disposition: Home, Self Care Condition: Good Prescriptions: Amox/Clav 500/125 [Augmentin 500/125] 1 tab PO BID #40 tablet Ferrous Gluconate 240 mg PO BID #60 tablet Magnesium Oxide [Mag Ox] 400 mg PO BIDWM #60 tablet Multivitamin W/Minerals [Theragran M] 1 tab PO DAILYWM #30 tablet Saccharomyces Boulardii [Florastor] 250 mg PO BID #60 capsule Tamsulosin [Flomax] 0.4 mg PO DAILY #30 capsule Vancomycin [Vancocin] 125 mg PO QID #32 capsule Diet: Regular Activity Restrictions: No Restrictions Shower Restrictions: No Additional Instructions or Follow Up instructions: (1) Urinary retention: This means that you are not emptying out all the way when you urinate. The main cause for this is from a condition called BPH (Benign prostatic hyperplasia). This condition can happen gradually as you age, but can also be caused by your urine infection. I have prescribed a medication called Flomax which works by relaxing your prostate and allowing your bladder to empty when you urinate. (2) Clostridium difficile infection: We are not sure how you got this infection and it is most often caused by taking certain types of antibiotics. You will need 10 days of treatment for this to be continued at home. Good hand washing is the jensen to stop the spread of this illness. (3) ARF (acute renal failure): We believe that your kidney function had been normal prior to this stay. The most likely reason for this disorder is severe dehydration that happened when you had the bowel infection since you had lots of diarrhea. The other reason for this may be related to your urine infection which causes your bladder and your prostate to be dysfunctional. You have had a gradual improvement each day using IV fluids, but you are still having retention (not able to empty out your bladder), so an abdominal CT has been ordered to make sure there are no other reasons for this such as stones, or tumors. (4) E. coli UTI (urinary tract infection): A urine sample confirmed this pathogen as being the cause of this infection. You will have an extended antibiotic course to efficiently penetrate the prostate and resolve this infection. Plan to have a full 21-day course of treatment to be continued at home. Since you have had some kidney damage, you need to stop taking any type of NSAID (non-steroidal anti-imflammatory drug) such has aspirin, Aleve, ibuprofen, Advil, Excedrin. This will worsen your kidney function and may cause permanent damage. Please see your PCP within one week or by this Tuesday because you will need follow up labs to ensure that your kidneys continue to improve. No Smoking: If you smoke, Please STOP! Call for help. Follow-up with: FRANSISCO FERREIRA [Primary Care Provider] -
--- NOTE | 2019-01-08 12:04 | DISCHARGE SUMMARY ---
Discharge Summary Discharge Date: 01/08/19 Discharging Provider: DEYSI Shea Code Status: Attempt Resuscitation Condition at Discharge: Good Discharge Disposition: 01 Home, Self Care - DIAGNOSES Admission Diagnoses: Acute kidney failure, unspecified (N17.9) Diarrhea, unspecified (R19.7) Abnormal weight loss (R63.4) Urinary tract infection, site not specified (N39.0) Discharge Diagnoses with Status of Each Condition: Clostridioides difficile infection (A49.8) new on this admission, continue 8 more days of vanco at home E. coli UTI (N39.0) 21- day course of Augmentin ARF (acute renal failure) (N17.9) improved, needs follow up Diarrhea (R19.7) improved, nearly resolved Elevated BUN (R79.9) improved, nearly resolved Chronic obstructive pulmonary disease (COPD) (J44.9) continue on home inhalers, no exacerbation Urinary retention (R33.9) continue flomax - HPI History of Present Illness: This is a 63-year-old maleWith a past medical history of hepatitis C-post treatment, colon polyps, hypertension, angina, abnormal cardiac stress test, COPD, osteoarthritis, tobacco use In remission, left hip dysplasia, depression, and PTSD. He was in his usual state of health up until about 7 days ago. His left hip pain has been bothering him more so he has been having imaging done both at [facility] and at [facility], with otherwise no other sick contacts. Two days ago his symptoms became profoundly worse including; lower abdominal pain, cramping, nausea, bloating, dry heaves, loss of appetite, and diarrhea so severe that he became incontinent. He felt as if he could not eat or drink anything because of the bloating, and noticed that his stool became very watery with blood in it. He decided it was time to come to the emergency department when his weakness became very so bad that he could barely walk. He was brought in via private vehicle and on presentation Complained ofWeakness,Dizziness,And right upper quadrant abdominal pain. Lab show elevated an elevated WBC count of 13.5, albumin was 2.6, creatinine was 3.3, and a BUN of 84. His last known creatinine was with a baseline of 1.0. Other electrolytes in cluding sodium and potassium were unremarkable. Carbon dioxide and anion gap are within normal limits. Alk Phos was 161, liver function tests were otherwise unremarkable. Lipase was at the upper limit of normal range. Urinalysis was positive with protein, blood, leukocyte esterase, numerous white blood cells, and numerous bacteria. Hemoglobin was 11, with a baseline hemoglobin of 13. On the initial admitting providers exam, the patient claims that he has lost about 10 pounds, which is significant. The patient is very thin, appears with decreased muscle mass and temporal wasting. The patient was cooperative in was very pleasant. Vital signs include a temperature maximum of 37C, heart rate be tween 60 and 70, blood pressure 118/84, respiratory rate 18, Oxygen saturation 100% on room air. He was admitted to inpatient as his bowel pattern seemed to be infectious, for Acute renal failure, maybe from his chronic NSAID use, urinary pathology has a patient at sometime has had a positive urinalysis, which could indicate nephrolithiasis, Urinary tract infection/pyelonephritis, Hypoalbuminemia/protein malnutrition, moderate protein calorie malnutrition, wnemia, weight loss. A stool test showed Positive for Clostridium difficile. He was given ceftriaxone and will be continued on Flagyl. - HOSPITAL COURSE Hospital Course: The patient had a four day length of stay in the hospital and had improved after starting oral vancomycin, and being treated for his acute e coli UTI. Imaging showed no pyelonephritis. His acute kidney injury slowly improved with the use of IV fluids and by avoid nephrotoxins. Creatinine was 2.3 upon discharge. Post void residual bladder scans showed urinary retention with 400-500 ML's. The patient refused to indwelling Elizondo catheter. Prior to discharge she was started on Flomax for treatment of urinary retention. His son Lucas was given a medical update. Prescriptions were sent to the pharmacy for vancomycin, Augmentin, Flomax, iron supplement. He was cautioned on no further use of NSAIDs as these are nephrotoxic and may cause permanent kidney damage. He was encouraged to follow up with his primary care provider within one week. His Augmentin was prescribed for a 21 day course to penetrate the prostate and for the treatment of this acute UTI. The patient was medically stable and eating eager to return home where he lives independently. A summary of his medical conditions were given with teaching. - ALLERGIES Allergies/Adverse Reactions: Allergies Allergy/AdvReac Type Severity Reaction Status Date / Time No Known Drug Allergies Allergy Verified 01/04/19 15:58 - MEDICATIONS Home Medications: Ambulatory Orders Medication Instructions Recorded Confirmed Albuterol Sulf [Ventolin Hfa 2 puffs INH Q4H PRN 06/20/18 01/04/19 Inhaler] Metoprolol Succinate 25 mg PO DAILY 06/20/18 01/04/19 Tiotropium [place] [Spiriva] 1 puffs INH DAILY 06/20/18 01/04/19 Umeclidinium Brm/Vilanterol Tr 1 puffs INH DAILY 06/20/18 01/04/19 [Anoro Ellipta 62.5-25 Mcg INH] Amlodipine Besylate 10 mg PO DAILY 01/04/19 01/04/19 FLUoxetine [PROzac] 20 mg PO DAILY 01/04/19 01/04/19 Fluticasone Propionate 2 spray AWA DAILY 01/04/19 01/04/19 Tramadol HCl 50 mg PO DAILY PRN 01/04/19 01/04/19 Amox/Clav 500/125 [Augmentin 1 tab PO BID #40 tablet 01/08/19 500/125] Ferrous Gluconate 240 mg PO BID #60 tablet 01/08/19 Magnesium Oxide [Mag Ox] 400 mg PO BIDWM #60 tablet 01/08/19 Multivitamin W/Minerals [Theragran 1 tab PO DAILYWM #30 tablet 01/08/19 M] Saccharomyces Boulardii [Florastor] 250 mg PO BID #60 capsule 01/08/19 Tamsulosin [Flomax] 0.4 mg PO DAILY #30 capsule 01/08/19 Vancomycin [Vancocin] 125 mg PO QID #32 capsule 01/08/19 - PHYSICAL EXAM AT DISCHARGE General Appearance: positive: No acute distress, Alert Eyes Bilateral: positive: Normal inspection, PERRL ENT: positive: ENT inspection nml, Pharynx nml, No signs of dehydration Neck: positive: Thyroid nml, No JVD, Trachea midline Respiratory: positive: Chest non-tender, No respiratory distress, Breath sounds nml Cardiovascular: positive: Regular rate & rhythm, No gallop, Systolic murmur Peripheral Pulses: positive: 2+ Abdomen: positive: Tenderness, Guarding Back: positive: Nml inspection Skin: positive: No rash, Warm, Dry, Other (bronze toned skin) Extremities: positive: Non-tender, Full ROM, No pedal edema, Joint swelling (chronic hip swelling- left) Neurologic/Psychiatric: positive: Oriented x3, CN's nml (2-12), Motor nml, Sensation nml, Depressed mood/affect (flat affect- baseline) Reflexes: Bicep (R): 3+, Bicep (L): 3+ - LABS Result Diagrams: 01/08/19 05:48 01/08/19 05:48 - FOLLOW UP Follow Up: Follow up with electrolyte panel to ensure VELMA is resolving Extended treatment of UTI of 21 days Good hand washing for c. diff, continue 10 day course Monitor for ongoing urinary retention, continue flomax - TIME SPENT Time Spent in Discharge (Minutes): 55
[2019-01-08 13:36] VITALS: BP 126/78
== END 2019-01-08 13:42 | disposition home or self-care (01) | DRG 372 ==
LOC: ED 15:42 → MS2 17:02
PROVIDERS: ADMIT Nurse Practitioner; ATTEND Nurse Practitioner
DX: A04.72 Enterocolitis due to Clostridium difficile, not specified as recurrent (principal); N39.0 Urinary tract infection, site not specified; N17.9 Acute kidney failure, unspecified; E44.0 Moderate protein-calorie malnutrition; Z68.1 Body mass index [BMI] 19.9 or less, adult; B96.20 Unspecified Escherichia coli [E. coli] as the cause of diseases classified elsewhere; E86.0 Dehydration; D50.0 Iron deficiency anemia secondary to blood loss (chronic); D63.8 Anemia in other chronic diseases classified elsewhere; R74.8 Abnormal levels of other serum enzymes; J43.9 Emphysema, unspecified; N40.1 Benign prostatic hyperplasia with lower urinary tract symptoms; R33.8 Other retention of urine; N39.498 Other specified urinary incontinence; I10 Essential (primary) hypertension; M19.90 Unspecified osteoarthritis, unspecified site; F17.201 Nicotine dependence, unspecified, in remission; F32.9 Major depressive disorder, single episode, unspecified; F43.10 Post-traumatic stress disorder, unspecified; F10.11 Alcohol abuse, in remission; Q65.89 Other specified congenital deformities of hip; Z86.19 Personal history of other infectious and parasitic diseases; Z79.899 Other long term (current) drug therapy; Z79.51 Long term (current) use of inhaled steroids; Z79.1 Long term (current) use of non-steroidal anti-inflammatories (NSAID)
CPT/HCPCS: 36415; 74176; 76770; 80048; 80053; 81001; 82043; 82550; 82570; 82607; 83540; 83690; 83735; 83880; 84100; 84443; 84466; 85025; 85651; 86140; 87045; 87046; 87086; 87181; 87493; 94640; 94664; 99283; 99284; A9270; J7626; J8499; 81003

== ENCOUNTER 2019-01-24 15:03 | Outpatient (CLI) | payer MEDICAID | END 2019-01-24 15:04 | disposition home or self-care (01) | LOC: DI 15:03 | PROVIDERS: ATTEND Internal Medicine | DX: D41.02 Neoplasm of uncertain behavior of left kidney (principal); Z53.9 Procedure and treatment not carried out, unspecified reason ==

== ENCOUNTER 2020-06-22 09:49 | Emergency (ER) | payer MEDICARE, MEDICAID ==
--- NOTE | 2020-06-22 10:47 | ED Physician Documentation ---
PD HPI NECK PAIN - Stated complaint Stated Complaint: NECK PAIN - Chief complaint Chief Complaint: General - History obtained from History obtained from: Patient - History of Present Illness Timing - onset: How many days ago (2-3 days of pain in upper thoracic area radiating to left shoulder, worse with ROM. No noted injury. Having increased pain left hip as well, with prior arthritis there. Having hip replacement at [facility] early July. No prior problems in thoracic area. Having fevers the past day. Some flank pain.) Timing - duration: Days (2-3) Timing - details: Gradual onset, Still present Location: Lower (actually mid to upper thoracic area and not neck itself.), Left Quality: Spasm, Sharp, Aching Associated symptoms: Fever. No: Weakness, Numbness, Incontinent of urine Worsened by: Movement, Palpation Contributing factors: No: Trauma, Anticoagulated Similar symptoms before: Has not had sx before Review of Systems Constitutional: reports: Fever (for past day) Nose: denies: Rhinorrhea / runny nose, Congestion Throat: denies: Dental pain / toothache, Sore throat Respiratory: reports: Dyspnea (mild baseline), Wheezing (mild to moderate chronic). denies: Cough GI: denies: Nausea, Vomiting, Diarrhea : reports: Frequency, Hesitancy. denies: Dysuria, Hematuria Skin: denies: Rash, Lesions Musculoskeletal: reports: Back pain, Joint pain (chronic left hip from arth ritis.). denies: Neck pain Neurologic: reports: Confused (he says he had been forgetful this past week. No headache.). denies: Focal weakness, Numbness, Altered mental status, Headache PD PAST MEDICAL HISTORY - Past Medical History Past Medical History: Yes Cardiovascular: Hypertension, Angina Respiratory: COPD, Other Neuro: None Endocrine/Autoimmune: None GI: Colon polyps, Hepatitis : Retention, Incontinence HEENT: None Psych: Depression, Post traumatic stress disorder Musculoskeletal: Osteoarthritis Derm: None - Past Surgical History Past Surgical History: Yes General: Other HEENT: Tonsil/Adenoidectomy - Present Medications Home Medications: Ambulatory Orders Medication Instructions Recorded Confirmed Albuterol Sulf [Ventolin Hfa 2 puffs INH QID 06/20/18 01/08/20 Inhaler] Metoprolol Succinate 25 mg PO DAILY 06/20/18 01/08/20 FLUoxetine [PROzac] 20 mg PO DAILY 01/04/19 01/08/20 Cyclobenzaprine [Flexeril] 10 mg PO TID PRN 01/08/20 01/08/20 Gabapentin [Neurontin] 300 mg PO TID 01/08/20 01/08/20 Umeclidinium Brm/Vilanterol Tr 1 puffs INH DAILY 01/08/20 01/08/20 [Anoro Ellipta 62.5-25 Mcg INH] Umeclidinium Henderson [Incruse 1 puffs INH DAILY 01/08/20 01/08/20 Ellipta] Potassium Chloride 20 meq PO DAILY #7 tablet.er 01/11/20 Saccharomyces Boulardii [Florastor] 250 mg PO BID #14 capsule 01/11/20 Tamsulosin [Flomax] 0.4 mg PO DAILY #30 capsule 01/11/20 Vancomycin [Vancocin] 125 mg PO QID #15 capsule 01/11/20 cefUROXime axetiL [Ceftin] 500 mg PO BID #20 tablet 01/11/20 - Allergies Allergies/Adverse Reactions: Allergies Allergy/AdvReac Type Severity Reaction Status Date / Time No Known Drug Allergies Allergy Verified 01/07/20 15:06 - Social History Does the pt smoke?: No Smoking Status: Former smoker Does the pt drink ETOH?: Yes Does the pt have substance abuse?: No - Immunizations Immunizations are current?: Yes - POLST Patient has POLST: No POLST Status: Full Code PD ED PE NORMAL - Vitals Vital signs reviewed: Yes - General General: Alert and oriented X 3 (though has a somewhat tangential process, but still clear and conversant. ), No acute distress, Well developed/nourished - Neck Neck: Supple, no meningeal sign, No bony TTP, No adenopathy, Other (has tenderness to percussion in mid to upper thoracic area about T4-6 area. ) - Cardiac Cardiac: RRR, No murmur - Respiratory Respiratory: Clear bilaterally - Abdomen Abdomen: Soft, Non tender - Male Male : Deferred - Rectal Rectal: Deferred - Back Back: Other (mildly tender CVA area. Most painful to percussion at upper thoracic area. No rash nor sores. ) - Derm Derm: Normal color, Warm and dry, No rash - Extremities Extremities: No tenderness to palpate, Normal ROM s pain, Other (left shoulder without tenderness, redness nor swelling. Left hip without redness nor tenderness. Has pain ROM that he says is baseline. ) - Neuro Neuro: Alert and oriented X 3, No motor deficit, No sensory deficit, Normal speech, Other (limping gait favoring left hip going to bathroom. ) Results - Vitals Vitals: Vital Signs - 24 hr 06/22/20 06/22/20 06/22/20 10:00 10:29 10:35 Temperature 37.3 C 39.2 C H 38.7 C H Heart Rate 102 H 105 H 99 Respiratory 20 20 20 Rate Blood Pressure 124/97 H 139/100 H 139/99 H O2 Saturation 97 97 97 06/22/20 06/22/20 06/22/20 11:40 12:23 12:30 Temperature 37.5 C 38.2 C H Heart Rate 93 90 102 H Respiratory 22 19 20 Rate Blood Pressure 140/103 H 150/95 H 149/94 H O2 Saturation 97 96 97 06/22/20 06/22/20 06/22/20 13:33 15:01 15:30 Temperature Heart Rate 88 92 80 Respiratory 21 18 17 Rate Blood Pressure 137/100 H 132/101 H 149/100 H O2 Saturation 97 99 99 06/22/20 06/22/20 16:00 17:00 Temperature Heart Rate 81 96 Respiratory 17 19 Rate Blood Pressure 144/111 H 138/100 H O2 Saturation 99 99 Oxygen O2 Source Room air - Labs Labs: Laboratory Tests 06/22/20 06/22/20 06/22/20 11:35 11:35 11:35 WBC 11.7 H RBC 4.37 L Hgb 13.4 L Hct 38.9 L MCV 89.0 MCH 30.7 MCHC 34.4 RDW 14.3 Plt Count 242 MPV 8.9 Neut # (Auto) 9.3 H Lymph # (Auto) 0.5 L [place] # (Auto) 1.5 H Eos # (Auto) 0.2 Baso # (Auto) 0.0 Absolute Nucleated RBC 0.00 Nucleated RBC % 0.0 ESR Sodium 132 L Potassium 3.7 Chloride 97 L Carbon Dioxide 25 Anion Gap 10.0 BUN 31 H Creatinine 1.7 H Estimated GFR (MDRD) 41 L Glucose 131 H Lactic Acid < 0.3 L Calcium 8.9 Total Bilirubin 0.6 AST 13 ALT 14 Alkaline Phosphatase 63 C-Reactive Protein 31.3 H Total Protein 7.7 Albumin 3.4 Globulin 4.3 H Albumin/Globulin Ratio 0.8 L Urine Color Urine Clarity Urine pH Ur Specific [place] Urine Protein Urine Glucose (UA) Urine Ketones Urine Occult Blood Urine Nitrite Urine Bilirubin Urine Urobilinogen Ur Leukocyte Esterase Urine RBC Urine WBC Ur Squamous Epith Cells Urine Bacteria Urine Culture Comments Nasal Adenovirus (PCR) Nasal B. parapertussis DNA (PCR) Nasal Coronavir 229E PCR Nasal Coronavir HKU1 PCR Nasal Coronavir NL63 PCR Nasal Coronavir OC43 PCR Nasal Enterovir/Rhinovir PCR Nasal Influenza B PCR Nasal Influenza A PCR Nasal Parainfluen 1 PCR Nasal Parainfluen 2 PCR Nasal Parainfluen 3 PCR Nasal Parainfluen 4 PCR Nasal RSV (PCR) Nasal B.pertussis DNA PCR Nasal C.pneumoniae (PCR) Cuong Human Metapneumo PCR Nasal M.pneumoniae (PCR) Nasal SARS-CoV-2 (PCR) 06/22/20 06/22/20 06/22/20 11:35 11:35 12:13 WBC RBC Hgb Hct MCV MCH MCHC RDW Plt Count MPV Neut # (Auto) Lymph # (Auto) [place] # (Auto) Eos # (Auto) Baso # (Auto) Absolute Nucleated RBC Nucleated RBC % ESR 61 H Sodium Potassium Chloride Carbon Dioxide Anion Gap BUN Creatinine Estimated GFR (MDRD) Glucose Lactic Acid Calcium Total Bilirubin AST ALT Alkaline Phosphatase C-Reactive Protein Total Protein Albumin Globulin Albumin/Globulin Ratio Urine Color YELLOW Urine Clarity SL. CLOUDY Urine pH 6.5 Ur Specific [place] 1.020 Urine Protein 100 H Urine Glucose (UA) NEGATIVE Urine Ketones NEGATIVE Urine Occult Blood MODERATE H Urine Nitrite POSITIVE H Urine Bilirubin NEGATIVE Urine Urobilinogen 0.2 (NORMAL) Ur Leukocyte Esterase MODERATE H Urine RBC 6-10 H Urine WBC 11-25 H Ur Squamous Epith Cells FEW Squamous Urine Bacteria Moderate H Urine Culture Comments INDICATED Nasal Adenovirus (PCR) NOT DETECTED Nasal B. parapertussis DNA (PCR) NOT DETECTED Nasal Coronavir 229E PCR NOT DETECTED Nasal Coronavir HKU1 PCR NOT DETECTED Nasal Coronavir NL63 PCR NOT DETECTED Nasal Coronavir OC43 PCR NOT DETECTED Nasal Enterovir/Rhinovir PCR NOT DETECTED Nasal Influenza B PCR NOT DETECTED Nasal Influenza A PCR NOT DETECTED Nasal Parainfluen 1 PCR NOT DETECTED Nasal Parainfluen 2 PCR NOT DETECTED Nasal Parainfluen 3 PCR NOT DETECTED Nasal Parainfluen 4 PCR NOT DETECTED Nasal RSV (PCR) NOT DETECTED Nasal B.pertussis DNA PCR NOT DETECTED Nasal C.pneumoniae (PCR) NOT DETECTED Cuong Human Metapneumo PCR NOT DETECTED Nasal M.pneumoniae (PCR) NOT DETECTED Nasal SARS-CoV-2 (PCR) NOT DETECTED - Rads (name of study) chest xray Radiology: Prelim report reviewed (no infiltrates), See rad report spine CT Radiology: Prelim report reviewed (no soft tissue abnormalities nor evidence disciitis. MRI suggested if still concerned), EMP read contemporaneously (ordered with contrast but done without inadvertently), See rad report PD MEDICAL DECISION MAKING - ED course Complexity details: reviewed results (His lactate is normal. His white count is elevated. His inflammatory markers of CRP and ESR are markedly elevated. Chest x-ray did not show any infiltrates. CT of the spine did not show any obvious soft tissue abnormalities or evidence of discitis but MRI is suggested.), considered differential (Concern with severe mid to upper thoracic pain with movement and percussion associated with fever and mild sepsis markers of tachycardia and elevated white count. He does have a UTI but I do not think this accounts for his symptoms. Otherwise concerning for discitis or epidural abscess.), d/w patient, d/w computing consultant (I talked with the transfer center and then Dr. Merlin Fernández the hospitalist at [facility] and they accepted transfer the patient for more timely testing and assessment.) ED course: On reassessment the patient is more comfortable with pain medicines. He had a lowered temperature for a while but then started to increase again to 38. He does have a UTI based on urine sample but is pain and tenderness in the thoracic area in conjunction with the fever and elevated inflammatory markers is very concerning for possible discitis bacterial or epidural abscess. I feel he needs a more timely assessment of that with MRI as the CT was not definitive in excluding that. The patient is agreeable to transfer. Departure - Departure Disposition: 02 Transfer Acute Care Hosp Clinical Impression: UTI (urinary tract infection) Qualifiers: Urinary tract infection type: acute pyelonephritis Qualified Code(s): N10 - Acute pyelonephritis Fever Qualifiers: Fever type: unspecified Qualified Code(s): R50.9 - Fever, unspecified Acute thoracic back pain Qualifiers: Back pain laterality: midline Qualified Code(s): M54.6 - Pain in thoracic spine Condition: Stable Record reviewed to determine appropriate education?: Yes
[2020-06-22] MEDS ORDERED: SODIUM CHLORIDE 0.9% 2,177.25 ML IV STA (11:06)
[2020-06-22] MEDS ORDERED: KETOROLAC 30 MG/ML VIAL IVP STA (11:08)
[2020-06-22] MEDS ORDERED: HYDROmorphone 1 MG/ML CARPUJECT IVP STA ×2 (11:08→14:18)
[2020-06-22] MEDS ORDERED: VANCOMYCIN INJ 1.75 GM in SODIUM CHLORIDE 0.9% 500 ML IV STA (11:09)
[2020-06-22] MEDS ORDERED: ceFAZolin 2 GM in SODIUM CHLORIDE 0.9% 100ML 100 ML IV STA (11:09)
--- NOTE | 2020-06-22 11:42 | XRAY Report ---
PROCEDURE: Chest 1 View X-Ray INDICATIONS: chest pain TECHNIQUE: One view of the chest was acquired. COMPARISON: 01/07/2020, 12/14/2013 FINDINGS: Surgical changes and devices: None. Lungs and pleura: On the semiupright images, no large pneumothorax or large pleural effusions can be seen. No focal infiltrates are seen. Low lung volumes can be seen, causing a crowded appearance to the lung markings. Mediastinum: The aorta is prominent and tortuous. The cardiac contours are within normal limits. Bones and chest wall: No suspicious bony lesions. Age-appropriate degenerative changes are seen. N o displaced rib fractures. Overlying soft tissues appear unremarkable. IMPRESSION: Limited portable chest study, without an imaging explanation found for the patient's presenting histo ry of right-sided chest pain. Reviewed by: Kumar Butt MD on 06/22/2020 10:[address] [facility] Approved by: Kumar Butt MD on 06/22/2020 10:[address] [facility] Station ID: [id number]
[2020-06-22 11:43] LABS: BASOPHILS % (AUTO) 0.3 %; EOSINOPHILS # (AUTO) 0.2 10^3/uL (0.0-0.7); EOSINOPHILS % (AUTO) 2.1 %; HGB - HEMOGLOBIN 13.4 g/dL (14.0-18.0); LYMPHOCYTES # (AUTO) 0.5 10^3/uL (1.5-3.5); LYMPHOCYTES % (AUTO) 4.4 %; MEAN CORPUSCULAR HEMOGLOBIN 30.7 pg (27.0-31.0); MEAN CORPUSCULAR HGB CONC 34.4 g/dL (32.0-36.0); MEAN PLATELET VOLUME 8.9 fL (7.4-11.4); MONOCYTES # (AUTO) 1.5 10^3/uL (0.0-1.0); MONOCYTES % (AUTO) 12.7 %; NEUTROPHILS # (AUTO) 9.3 10^3/uL (1.5-6.6); NEUTROPHILS % (AUTO) 79.9 %; PLT - PLATELET COUNT 242 10^3/uL (130-450); RED BLOOD COUNT 4.37 10^6/uL (4.70-6.10); RED CELL DISTRIBUTION WIDTH 14.3 % (12.0-15.0); WHITE BLOOD COUNT 11.7 x10^3/uL (4.8-10.8)
[2020-06-22 12:16] LABS: ALBUMIN 3.4 g/dL (3.2-5.5); ALBUMIN/GLOBULIN RATIO 0.8 (1.0-2.2); BILIRUBIN,TOTAL 0.6 mg/dL (0.2-1.0); CALCIUM 8.9 mg/dL (8.5-10.3); CREATININE 1.7 mg/dL (0.6-1.2); CRP - C-REACTIVE PROTEIN 31.3 mg/dL (0-1.0); TOTAL PROTEIN 7.7 g/dL (6.7-8.2)
[2020-06-22 12:31] LABS: BILIRUBIN,URINE NEGATIVE (NEGATIVE); GLUCOSE, URINE (UA) NEGATIVE (NEGATIVE); KETONES,URINE (UA) NEGATIVE (NEGATIVE); LEUKOCYTE ESTERASE, URINE MODERATE (NEGATIVE); NITRITE,URINE POSITIVE (NEGATIVE); OCCULT BLOOD,URINE MODERATE (NEGATIVE); PH,URINE 6.5 PH (5.0-7.5); PROTEIN,URINE 100 mg/dL (NEGATIVE); UROBILINOGEN,URINE 0.2 (NORMAL) E.U./dL (NORMAL)
[2020-06-22 12:32] LABS: CLARITY,URINE SL. CLOUDY (CLEAR)
[2020-06-22 12:35] LABS: BACTERIA,URINE Moderate /HPF (None Seen); SQUAMOUS EPITHELIAL CELL,UR FEW Squamous (<= Few)
[2020-06-22 12:45] LABS: C. PNEUMONIAE- RESP PCR PANEL NOT DETECTED
--- NOTE | 2020-06-22 14:48 | CT Report ---
PROCEDURE: CERVICAL SPINE WO INDICATIONS: UPPER AND LOWER BACK PAIN AND FEVER TECHNIQUE: Noncontrast 3 mm thick sections acquired from the skull base to the T4 level. Sagittal and coronal r eformats were then constructed. For radiation dose reduction, the following was used: automated exp osure control, adjustment of mA and/or kV according to patient size. COMPARISON: None. FINDINGS: Image quality: Excellent. Bones: No fractures or dislocations. Visualized superior ribs are intact. Discs: C2-3: No significant disc bulge. The foramina and central canal are patent. C3-4: Disc space narrowing and disc osteophytes cause moderate bilateral foraminal stenosis. The cent ral canal is patent. C4-5: No significant disc bulge. Disc osteophytes cause mild bilateral foraminal stenosis. The centra l canal is patent. C5-6: There is moderate disc space narrowing and disc osteophytes causing mild bilateral foraminal st enosis. The central canal is patent. C6-7: There is moderate to severe disc space narrowing and disc osteophytes causing moderate bilatera l foraminal stenosis. The central canal is patent. C7-T1: No significant disc bulge. Disc osteophytes cause mild bilateral foraminal stenosis. Soft tissues: Prevertebral soft tissues are normal in thickness. No paravertebral hematomas. No ap ical pneumothoraces. The lung apices have centrilobular emphysematous changes. IMPRESSION: 1. Chronic multilevel degenerative disc disease. 2. Multilevel foraminal stenosis as above. 3. No significant central canal stenosis is identified by CT, however MR would better evaluate the ce ntral canal. 4. Centrilobular emphysema. 5. No evidence of disc osteomyelitis. Reviewed by: Robert Macias on 06/22/2020 2:47 PM PST Approved by: Robert Macias on 06/22/2020 2:47 PM PST Station ID: [id number]
--- NOTE | 2020-06-22 14:53 | CT Report ---
PROCEDURE: THORACIC SPINE WO INDICATIONS: UPPER AND LOWER BACK PAIN, FEVER TECHNIQUE: Noncontrast 3 mm thick sections acquired through the region of interest in the thoracic spine. Sagit mary and coronal reformats were then constructed. For radiation dose reduction, the following was used : automated exposure control, adjustment of mA and/or kV according to patient size. COMPARISON: None. FINDINGS: Image quality: Excellent. Bones: There is normal overall bony alignment. No acute vertebral body compression fractures. No s uspicious sclerotic or lytic bony lesions. Central spinal canal is of normal overall caliber. Soft tissues: No paravertebral masses or hematomas. Visualized posteromedial lungs appear clear. T he lungs have centrilobular emphysematous changes. T7-8, T8-9, and T9-10 demonstrate disc space narro wing and endplate degenerative changes and sclerosis consistent with chronic degenerative disc diseas e. No paraspinal soft tissue swelling or masses. T12-L1 has disc space narrowing and endplate degener ative changes with sclerosis on the left. IMPRESSION: 1. Chronic multilevel degenerative changes of the thoracic spine most severe from T7 through T10. 2. No evidence of disc osteomyelitis. Reviewed by: Robert Macias on 06/22/2020 2:52 PM PST Approved by: Robert Macias on 06/22/2020 2:52 PM PST Station ID: [id number]
--- NOTE | 2020-06-22 15:01 | CT Report ---
PROCEDURE: LUMBAR SPINE WO INDICATIONS: UPPER AND LOWER BACK PAIN, FEVER TECHNIQUE: Noncontrast 3 mm thick sections acquired from the T12 level to the sacrum. Sagittal and coronal refo rmats were constructed. For radiation dose reduction, the following was used: automated exposure co ntrol, adjustment of mA and/or kV according to patient size. COMPARISON: None. FINDINGS: Image quality: Excellent. Bones: There is normal bony alignment. No acute vertebral body compression fractures. No suspiciou s lytic or blastic bony lesions. Central spinal caliber is of normal overall caliber. No pars defec ts. T12-L1: No significant disc bulge. The foramina and central canal are patent. L1-L2: Disc space narrowing and endplate degenerative changes with a diffuse disc bulge and disc o steophyte cause moderate bilateral foraminal stenosis. The central canal has at least mild central ca nal stenosis. L2-L3: Disc space narrowing and endplate degenerative changes with a diffuse disc bulge and disc oste ophytes cause severe bilateral foraminal stenosis and severe central stenosis. Ligamentum flavum hype rtrophy is seen posteriorly contributing to central canal stenosis. L3-L4: Disc space narrowing and endplate degenerative changes with a diffuse disc bulge and disc os teophytes cause moderate bilateral foraminal stenosis. The central canal has moderate to severe steno sis L4-L5: Diffuse disc bulge and facet arthrosis left causes moderate left foraminal stenosis. The rig ht foramen and central canal are patent. The central canal has mild stenosis L5-S1: No significant disc bulge. The foramina and central canal are patent. Soft tissues: No retroperitoneal masses or hematomas. Visualized aorta is normal in caliber. No pa raspinal soft inflammation or fluid collections. IMPRESSION: 1. Multilevel degenerative disc disease as above causing multilevel foraminal stenosis. 2. Severe central canal stenosis at L2-3 and moderate to severe central canal stenosis at L3-4. 3. No CT evidence of disc osteomyelitis. Reviewed by: Robert Macias on 06/22/2020 3:00 PM PST Approved by: Robert Macias on 06/22/2020 3:00 PM PST Station ID: [id number]
[2020-06-22] MEDS ORDERED: ACETAMINOPHEN 325 MG TABLET PO STA (15:32)
[2020-06-22] MEDS ORDERED: LACTATED RINGERS 1,000 ML IV STA (15:54)
[2020-06-22 18:00] VITALS: BP 138/114
[2020-06-22] MEDS ORDERED: SODIUM CHLORIDE 0.9% 1,000 ML IV STA (18:10)
== END 2020-06-22 18:25 | disposition short-term general hospital (02) ==
LOC: ED 09:49
DX: N10 Acute pyelonephritis (principal); R50.9 Fever, unspecified; R00.0 Tachycardia, unspecified; Z20.828 Contact with and (suspected) exposure to other viral communicable diseases; M51.34 Other intervertebral disc degeneration, thoracic region; M50.31 Other cervical disc degeneration, high cervical region; M51.36 Other intervertebral disc degeneration, lumbar region; M48.061 Spinal stenosis, lumbar region without neurogenic claudication; J43.2 Centrilobular emphysema; I10 Essential (primary) hypertension; Z87.891 Personal history of nicotine dependence
CPT/HCPCS: 36415; 71045; 72125; 72128; 72131; 80053; 81001; 83605; 85025; 85651; 86140; 87040; 87077; 87086; 87181; 87631; 96365; 96366; 96368; 96375; 96376; 99284; 99285; A9270; J1170; J3370; J7120; 0202U

== ENCOUNTER 2020-06-22 18:25 | Outpatient (CLI) | payer MEDICARE, MEDICAID | END 2020-06-22 18:26 | disposition short-term general hospital (02) | LOC: EMS 18:25 | PROVIDERS: ATTEND Surgery | DX: R50.9 Fever, unspecified (principal); M54.9 Dorsalgia, unspecified; N39.0 Urinary tract infection, site not specified | CPT/HCPCS: A0425; A0426 ==

== ENCOUNTER 2020-07-02 19:45 | Outpatient (CLI) | payer MEDICARE, MEDICAID ==
[2020-07-02 20:40] LABS: BASOPHILS # (AUTO) 0.1 10^3/uL (0.0-0.1); BASOPHILS % (AUTO) 0.6 %; EOSINOPHILS # (AUTO) 0.1 10^3/uL (0.0-0.7); EOSINOPHILS % (AUTO) 0.9 %; HGB - HEMOGLOBIN 11.1 g/dL (14.0-18.0); LYMPHOCYTES # (AUTO) 1.7 10^3/uL (1.5-3.5); LYMPHOCYTES % (AUTO) 15.3 %; MEAN CORPUSCULAR HEMOGLOBIN 29.4 pg (27.0-31.0); MEAN CORPUSCULAR HGB CONC 31.5 g/dL (32.0-36.0); MEAN CORPUSCULAR VOLUME 93.1 fL (80.0-94.0); MEAN PLATELET VOLUME 8.3 fL (7.4-11.4); MONOCYTES % (AUTO) 9.1 %; NEUTROPHILS # (AUTO) 7.9 10^3/uL (1.5-6.6); NEUTROPHILS % (AUTO) 72.9 %; PLT - PLATELET COUNT 687 10^3/uL (130-450); RED BLOOD COUNT 3.78 10^6/uL (4.70-6.10); RED CELL DISTRIBUTION WIDTH 14.4 % (12.0-15.0); WHITE BLOOD COUNT 10.8 x10^3/uL (4.8-10.8)
[2020-07-02 20:55] LABS: CALCIUM 9.2 mg/dL (8.5-10.3); CREATININE 1.3 mg/dL (0.6-1.2); CRP - C-REACTIVE PROTEIN 7.4 mg/dL (0-1.0)
== END 2020-07-02 23:59 | disposition home or self-care (01) ==
LOC: LAB.R 19:45
PROVIDERS: ATTEND Internal Medicine Infectious Disease
DX: M46.26 Osteomyelitis of vertebra, lumbar region (principal)
CPT/HCPCS: 80048; 85025; 85651; 86140

== ENCOUNTER 2020-07-08 09:31 | Emergency (ER) | payer MEDICARE, MEDICAID ==
--- NOTE | 2020-07-08 10:47 | XRAY Report ---
PROCEDURE: Chest 1 View X-Ray INDICATIONS: PICC LINE CHECK TECHNIQUE: One view of the chest was acquired. COMPARISON: 06/22/2020 FINDINGS: Surgical changes and devices: Left-sided PICC line tip is in SVC.. Lungs and pleura: No pleural effusions or pneumothorax. Lungs are clear. Mediastinum: Mediastinal contours appear normal. Heart size is normal. Bones and chest wall: No suspicious bony lesions. Overlying soft tissues appear unremarkable. IMPRESSION: Left-sided PICC line tip is in SVC. No acute cardiopulmonary pathology. Reviewed by: Carrington Dang MD on 07/08/2020 9:46 AM [facility] Approved by: Carrington Dang MD on 07/08/2020 9:46 AM [facility] Station ID: [id number]
--- NOTE | 2020-07-08 10:55 | XRAY Report ---
PROCEDURE: Shoulder 3 View LT INDICATIONS: L shoulder swelling, PICC line TECHNIQUE: 3 views of the shoulder were acquired. COMPARISON: None. FINDINGS: Bones: No fractures or dislocations. Osteoarthritic changes in acromioclavicular joint and glenohum eral joint are seen. . No suspicious bony lesions. Visualized ribs appear intact. Soft tissues: Left-sided PICC line tip is partially visualized. Small calcifications adjacent to mariella oid are noted which may represent intra-articular loose bodies. IMPRESSION: No acute left shoulder fracture or dislocation. Shoulder joint osteoarthritis and possib le intra-articular loose bodies. Reviewed by: Carrington Dang MD on 07/08/2020 9:53 AM [facility] Approved by: Carrington Dang MD on 07/08/2020 9:53 AM [facility] Station ID: [id number]
--- NOTE | 2020-07-08 11:00 | ED Physician Documentation ---
History of Present Illness - Stated complaint Stated Complaint: L SHOULDER PX/SWELLING - Chief complaint Chief Complaint: General - History obtained from History obtained from: Patient - History of Present Illness Timing: Today Pain level max: 4 Pain level now: 3 - Additonal information Additional information: 64-year-old male presents to the emergency department stating he has a left PICC line in place for osteomyelitis of the spine. He states he is receiving antibiotics 3 times a day. For the last several days he has noticed a swelling to the left pectoral/shoulder area. Nothing seems to make it better or worse. He states that the shoulder has been uncomfortable since he was moved for an MRI. Denies any other trauma. No fevers. No chills. Review of Systems Ten Systems: 10 systems reviewed and negative Constitutional: denies: Fever, Chills Ears: denies: Ear pain Nose: denies: Rhinorrhea / runny nose, Congestion GI: denies: Vomiting, Diarrhea Skin: denies: Rash Musculoskeletal: denies: Neck pain, Back pain Neurologic: denies: Headache PD PAST MEDICAL HISTORY - Past Medical History Past Medical History: Yes Cardiovascular: Hypertension, Angina Respiratory: COPD, Other Neuro: None Endocrine/Autoimmune: None GI: Colon polyps, Hepatitis : Retention, Incontinence HEENT: None Psych: Depression, Post traumatic stress disorder Musculoskeletal: Osteoarthritis Derm: None - Past Surgical History Past Surgical History: Yes General: Other HEENT: Tonsil/Adenoidectomy - Present Medications Home Medications: Ambulatory Orders Medication Instructions Recorded Confirmed Albuterol Sulf [Ventolin Hfa 2 puffs INH QID 06/20/18 01/08/20 Inhaler] Metoprolol Succinate 25 mg PO DAILY 06/20/18 01/08/20 FLUoxetine [PROzac] 20 mg PO DAILY 01/04/19 01/08/20 Cyclobenzaprine [Flexeril] 10 mg PO TID PRN 01/08/20 01/08/20 Gabapentin [Neurontin] 300 mg PO TID 01/08/20 01/08/20 Umeclidinium Brm/Vilanterol Tr 1 puffs INH DAILY 01/08/20 01/08/20 [Anoro Ellipta 62.5-25 Mcg INH] Umeclidinium [place] [Incruse 1 puffs INH DAILY 01/08/20 01/08/20 Ellipta] Potassium Chloride 20 meq PO DAILY #7 tablet.er 01/11/20 Saccharomyces Boulardii [Florastor] 250 mg PO BID #14 capsule 01/11/20 Tamsulosin [Flomax] 0.4 mg PO DAILY #30 capsule 01/11/20 Vancomycin [Vancocin] 125 mg PO QID #15 capsule 01/11/20 cefUROXime axetiL [Ceftin] 500 mg PO BID #20 tablet 01/11/20 - Allergies Allergies/Adverse Reactions: Allergies Allergy/AdvReac Type Severity Reaction Status Date / Time No Known Drug Allergies Allergy Verified 07/08/20 09:55 - Social History Does the pt smoke?: No Smoking Status: Former smoker Does the pt drink ETOH?: Yes Does the pt have substance abuse?: No - Immunizations Immunizations are current?: Yes - POLST Patient has POLST: No POLST Status: Full Code PD ED PE NORMAL - Vitals Vital signs reviewed: Yes - General General: Alert and oriented X 3, No acute distress, Well developed/nourished - HEENT HEENT: Moist mucous membranes - Neck Neck: Supple, no meningeal sign - Cardiac Cardiac: RRR, Strong equal pulses - Respiratory Respiratory: No respiratory distress, Clear bilaterally - Abdomen Abdomen: Soft, Non tender, Non distended - Derm Derm: Warm and dry - Extremities Extremities: Other (PICC line in place in the left arm. There is a firm area to the Superior portion of the chest, inferior to the distal left clavicle, prior to the glenohumeral joint. It is approximately 5 x 7 cm. No redness. No warmth.) - Neuro Neuro: Alert and oriented X 3 - Psych Psych: Normal mood, Normal affect Results - Vitals Vitals: Vital Signs - 24 hr 07/08/20 07/08/20 07/08/20 09:50 10:17 12:00 Temperature 37.2 C 37.5 C Heart Rate 77 83 75 Respiratory 18 16 14 Rate Blood Pressure 136/81 H 149/96 H 159/117 H O2 Saturation 99 100 100 07/08/20 13:14 Temperature 36.6 C Heart Rate 74 Respiratory 22 Rate Blood Pressure 163/110 H O2 Saturation 100 Oxygen O2 Source Room air - Labs Labs: Laboratory Tests 07/08/20 07/08/20 11:45 11:45 WBC 6.6 RBC 3.55 L Hgb 10.6 L Hct 33.3 L MCV 93.8 MCH 29.9 MCHC 31.8 L RDW 13.6 Plt Count 454 H MPV 7.6 Neut # (Auto) 4.5 Lymph # (Auto) 1.0 L [place] # (Auto) 0.9 Eos # (Auto) 0.1 Baso # (Auto) 0.1 Absolute Nucleated RBC 0.00 Nucleated RBC % 0.0 Sodium 138 Potassium 3.9 Chloride 102 Carbon Dioxide 27 Anion Gap 9.0 BUN 19 Creatinine 1.2 Estimated GFR (MDRD) 61 L Glucose 96 Calcium 9.2 - Rads (name of study) Chest x-ray Radiology: Prelim report reviewed, EMP read contemporaneously, See rad report (Left-sided PICC line tip is in SVC. No acute cardiopulmonary pathology. ) Left shoulder x-ray Radiology: Prelim report reviewed, EMP read contemporaneously, See rad report (No acute left shoulder fracture or dislocation. Shoulder joint osteoarthritis and possible intra-articular loose bodies. ) Chest wall ultrasound Radiology: Prelim report reviewed, EMP read contemporaneously, See rad report (Finding likely represent a large hematoma within left shoulder soft tissue. If indicated, MRI of shoulder can be done for further evaluation of this region. ) PD MEDICAL DECISION MAKING - ED course Complexity details: reviewed results, re-evaluated patient, considered differential, d/w patient ED course: Patient with what appears to be a hematoma to the left chest wall, does not appear to be related to the PICC line. There is no change on ultrasound with injection of saline into the decline. The PICC line is functioning normally. Appears to have a hematoma We will treat the hematoma symptomatically. He is not on blood thinners. Recommend compression, ice and follow-up with his doctor. Patient counseled regarding signs and symptoms for which I believe and urgent re-evaluation would be necessary. Patient with good understanding of and agreement to plan and is comfortable going home at this time This document was made in part using voice recognition software. While efforts are made to proofread this document, sound alike and grammatical errors may occur. Departure - Departure Disposition: 01 Home, Self Care Clinical Impression: Hematoma Condition: Good Instructions: ED Hematoma Follow-Up: Ben Wagner MD [Primary Care Provider] - Within 1 week Comments: You appear to have a hematoma on the left side of your chest wall. You can try icing this area as well as applying pressure. This should resolve on its own. Follow-up with your doctor for repeat evaluation within the next week. Return if you worsen Discharge Date/Time: 07/08/20 13:36
[2020-07-08 11:51] LABS: BASOPHILS # (AUTO) 0.1 10^3/uL (0.0-0.1); BASOPHILS % (AUTO) 0.9 %; EOSINOPHILS # (AUTO) 0.1 10^3/uL (0.0-0.7); EOSINOPHILS % (AUTO) 0.8 %; HGB - HEMOGLOBIN 10.6 g/dL (14.0-18.0); LYMPHOCYTES % (AUTO) 15.5 %; MEAN CORPUSCULAR HEMOGLOBIN 29.9 pg (27.0-31.0); MEAN CORPUSCULAR HGB CONC 31.8 g/dL (32.0-36.0); MEAN CORPUSCULAR VOLUME 93.8 fL (80.0-94.0); MEAN PLATELET VOLUME 7.6 fL (7.4-11.4); MONOCYTES # (AUTO) 0.9 10^3/uL (0.0-1.0); MONOCYTES % (AUTO) 13.9 %; NEUTROPHILS # (AUTO) 4.5 10^3/uL (1.5-6.6); NEUTROPHILS % (AUTO) 68.4 %; PLT - PLATELET COUNT 454 10^3/uL (130-450); RED BLOOD COUNT 3.55 10^6/uL (4.70-6.10); RED CELL DISTRIBUTION WIDTH 13.6 % (12.0-15.0); WHITE BLOOD COUNT 6.6 x10^3/uL (4.8-10.8)
[2020-07-08 12:00] LABS: CALCIUM 9.2 mg/dL (8.5-10.3); CREATININE 1.2 mg/dL (0.6-1.2)
--- NOTE | 2020-07-08 12:08 | Ultrasound Report ---
PROCEDURE: Ext Limited Non Vascular INDICATIONS: L shoulder swelling TECHNIQUE: Real-time scanning was performed of the left shoulder, with image documentation. COMPARISON: Left shoulder radiograph from the same day. FINDINGS: Focused ultrasound examination of left shoulder soft tissues shows grossly intact left subclavian and axillary vessels as well as patent left PICC line. At patient's reported area of focal swelling in l eft shoulder region, there is a complex fluid collection lateral to the axillary vessels and measures up to 6.7 x 8.2 x 11 cm in size. No internal vascularity is seen. IMPRESSION: Finding likely represent a large hematoma within left shoulder soft tissue. If indicated , MRI of shoulder can be done for further evaluation of this region. Reviewed by: Carrington Dang MD on 07/08/2020 11:07 AM [facility] Approved by: Carrington Dang MD on 07/08/2020 11:07 AM [facility] Station ID: [id number]
[2020-07-08 13:15] VITALS: BP 163/110
== END 2020-07-08 13:36 | disposition home or self-care (01) ==
LOC: ED 09:31
DX: M79.81 Nontraumatic hematoma of soft tissue (principal); I10 Essential (primary) hypertension; Z95.828 Presence of other vascular implants and grafts; Z87.891 Personal history of nicotine dependence
CPT/HCPCS: 36415; 80048; 85025; 99284; 99285

== ENCOUNTER 2020-07-09 07:00 | Outpatient (CLI) | payer MEDICARE, MEDICAID ==
[2020-07-09 13:35] LABS: BASOPHILS # (AUTO) 0.1 10^3/uL (0.0-0.1); EOSINOPHILS # (AUTO) 0.1 10^3/uL (0.0-0.7); EOSINOPHILS % (AUTO) 0.9 %; HGB - HEMOGLOBIN 10.8 g/dL (14.0-18.0); LYMPHOCYTES # (AUTO) 1.1 10^3/uL (1.5-3.5); LYMPHOCYTES % (AUTO) 18.2 %; MEAN CORPUSCULAR HGB CONC 31.3 g/dL (32.0-36.0); MEAN CORPUSCULAR VOLUME 92.7 fL (80.0-94.0); MEAN PLATELET VOLUME 8.3 fL (7.4-11.4); MONOCYTES # (AUTO) 0.7 10^3/uL (0.0-1.0); MONOCYTES % (AUTO) 12.1 %; NEUTROPHILS # (AUTO) 3.9 10^3/uL (1.5-6.6); NEUTROPHILS % (AUTO) 67.6 %; PLT - PLATELET COUNT 519 10^3/uL (130-450); RED BLOOD COUNT 3.72 10^6/uL (4.70-6.10); RED CELL DISTRIBUTION WIDTH 13.5 % (12.0-15.0); WHITE BLOOD COUNT 5.8 x10^3/uL (4.8-10.8)
[2020-07-09 13:41] LABS: CALCIUM 9.3 mg/dL (8.5-10.3); CREATININE 1.1 mg/dL (0.6-1.2)
== END 2020-07-09 23:59 | disposition home or self-care (01) ==
LOC: LAB.R 07:00
PROVIDERS: ATTEND Internal Medicine
DX: M60.08 Infective myositis, other site (principal); M46.24 Osteomyelitis of vertebra, thoracic region
CPT/HCPCS: 80048; 85025; 85651; 86140

== ENCOUNTER 2020-07-16 11:10 | Outpatient (CLI) | payer MEDICARE, MEDICAID ==
[2020-07-16 12:35] LABS: EOSINOPHILS # (AUTO) 0.1 10^3/uL (0.0-0.7); HGB - HEMOGLOBIN 10.5 g/dL (14.0-18.0); LYMPHOCYTES % (AUTO) 24.1 %; MEAN CORPUSCULAR HEMOGLOBIN 29.2 pg (27.0-31.0); MEAN CORPUSCULAR HGB CONC 31.9 g/dL (32.0-36.0); MEAN CORPUSCULAR VOLUME 91.6 fL (80.0-94.0); MEAN PLATELET VOLUME 8.5 fL (7.4-11.4); MONOCYTES # (AUTO) 0.5 10^3/uL (0.0-1.0); MONOCYTES % (AUTO) 11.9 %; NEUTROPHILS # (AUTO) 2.4 10^3/uL (1.5-6.6); NEUTROPHILS % (AUTO) 60.7 %; PLT - PLATELET COUNT 377 10^3/uL (130-450); RED BLOOD COUNT 3.59 10^6/uL (4.70-6.10); RED CELL DISTRIBUTION WIDTH 13.2 % (12.0-15.0)
[2020-07-16 12:48] LABS: CREATININE 1.3 mg/dL (0.6-1.2); CRP - C-REACTIVE PROTEIN 5.4 mg/dL (0-1.0)
== END 2020-07-16 23:59 | disposition home or self-care (01) ==
LOC: LAB.R 11:10
PROVIDERS: ATTEND Internal Medicine
DX: M60.08 Infective myositis, other site (principal); M46.24 Osteomyelitis of vertebra, thoracic region
CPT/HCPCS: 80048; 85025; 85651; 86140

== ENCOUNTER 2020-07-22 07:00 | Outpatient (CLI) | payer MEDICARE, MEDICAID | END 2020-07-22 23:59 | disposition home or self-care (01) | LOC: LAB.R 07:00 | PROVIDERS: ATTEND Internal Medicine | DX: M60.08 Infective myositis, other site (principal); M46.24 Osteomyelitis of vertebra, thoracic region | CPT/HCPCS: 80053; 85651; 86140 ==

== ENCOUNTER 2020-07-23 07:00 | Outpatient (CLI) | payer MEDICARE, MEDICAID ==
[2020-07-23 14:53] LABS: ALBUMIN 3.2 g/dL (3.2-5.5); ALBUMIN/GLOBULIN RATIO 0.7 (1.0-2.2); ALKALINE PHOSPHATASE 72 IU/L (42-121); ALT ALANINE AMINOTRANSFERASE < 10 IU/L (10-60); AST ASPARTATE AMINOTRANSFERASE 14 IU/L (10-42); BILIRUBIN,TOTAL 0.2 mg/dL (0.2-1.0); BUN - BLOOD UREA NITROGEN 26 mg/dL (6-20); CARBON DIOXIDE - CO2 26 mmol/L (21-32); CHLORIDE 103 mmol/L (101-111); CREATININE 1.2 mg/dL (0.6-1.2); CRP - C-REACTIVE PROTEIN 5.9 mg/dL (0-1.0); GLUCOSE 127 mg/dL (70-100); SODIUM 137 mmol/L (135-145); TOTAL PROTEIN 7.5 g/dL (6.7-8.2)
[2020-07-24 17:21] LABS: BASOPHILS # (AUTO) 0.1 10^3/uL (0.0-0.1); BASOPHILS % (AUTO) 1.2 %; EOSINOPHILS # (AUTO) 0.2 10^3/uL (0.0-0.7); EOSINOPHILS % (AUTO) 4.5 %; HGB - HEMOGLOBIN 10.3 g/dL (14.0-18.0); LYMPHOCYTES # (AUTO) 0.9 10^3/uL (1.5-3.5); LYMPHOCYTES % (AUTO) 21.4 %; MEAN CORPUSCULAR HEMOGLOBIN 28.7 pg (27.0-31.0); MEAN CORPUSCULAR VOLUME 92.5 fL (80.0-94.0); MEAN PLATELET VOLUME 8.6 fL (7.4-11.4); MONOCYTES # (AUTO) 0.6 10^3/uL (0.0-1.0); MONOCYTES % (AUTO) 12.9 %; NEUTROPHILS # (AUTO) 2.5 10^3/uL (1.5-6.6); NEUTROPHILS % (AUTO) 59.8 %; PLT - PLATELET COUNT 387 10^3/uL (130-450); RED BLOOD COUNT 3.59 10^6/uL (4.70-6.10); RED CELL DISTRIBUTION WIDTH 13.3 % (12.0-15.0); WHITE BLOOD COUNT 4.3 x10^3/uL (4.8-10.8)
== END 2020-07-23 23:59 | disposition home or self-care (01) ==
LOC: LAB.R 07:00
PROVIDERS: ATTEND Internal Medicine
DX: M60.08 Infective myositis, other site (principal); M46.24 Osteomyelitis of vertebra, thoracic region
CPT/HCPCS: 80053; 85025; 85651; 86140

== ENCOUNTER 2020-07-30 07:00 | Outpatient (CLI) | payer MEDICARE, MEDICAID ==
[2020-07-30 11:03] LABS: ALBUMIN 3.1 g/dL (3.2-5.5); ALBUMIN/GLOBULIN RATIO 0.7 (1.0-2.2); ALKALINE PHOSPHATASE 70 IU/L (42-121); ALT ALANINE AMINOTRANSFERASE < 10 IU/L (10-60); AST ASPARTATE AMINOTRANSFERASE 15 IU/L (10-42); BILIRUBIN,TOTAL 0.3 mg/dL (0.2-1.0); BUN - BLOOD UREA NITROGEN 17 mg/dL (6-20); CARBON DIOXIDE - CO2 25 mmol/L (21-32); CHLORIDE 102 mmol/L (101-111); CREATININE 1.1 mg/dL (0.6-1.2); CRP - C-REACTIVE PROTEIN 5.6 mg/dL (0-1.0); GFR - MDRD 67 (>89); GLUCOSE 104 mg/dL (70-100); SODIUM 139 mmol/L (135-145); TOTAL PROTEIN 7.4 g/dL (6.7-8.2)
[2020-07-31 15:38] LABS: EOSINOPHILS # (AUTO) 0.1 10^3/uL (0.0-0.7); EOSINOPHILS % (AUTO) 3.2 %; HCT - HEMATOCRIT 33.6 % (42.0-52.0); HGB - HEMOGLOBIN 10.6 g/dL (14.0-18.0); LYMPHOCYTES # (AUTO) 0.8 10^3/uL (1.5-3.5); LYMPHOCYTES % (AUTO) 19.4 %; MEAN CORPUSCULAR HEMOGLOBIN 29.1 pg (27.0-31.0); MEAN CORPUSCULAR HGB CONC 31.5 g/dL (32.0-36.0); MEAN CORPUSCULAR VOLUME 92.3 fL (80.0-94.0); MEAN PLATELET VOLUME 8.4 fL (7.4-11.4); MONOCYTES # (AUTO) 0.6 10^3/uL (0.0-1.0); MONOCYTES % (AUTO) 14.3 %; NEUTROPHILS # (AUTO) 2.5 10^3/uL (1.5-6.6); NEUTROPHILS % (AUTO) 61.9 %; PLT - PLATELET COUNT 326 10^3/uL (130-450); RED BLOOD COUNT 3.64 10^6/uL (4.70-6.10); RED CELL DISTRIBUTION WIDTH 13.6 % (12.0-15.0); WHITE BLOOD COUNT 4.1 x10^3/uL (4.8-10.8)
--- OUTSIDE RECORDS SUMMARY | 2020-08-13 00:02 | EXTERNAL MEDICAL SUMMARY RPT | Continuity of Care Document ---
:1955 Demographics Phone Unavailable Preferred Language Kyrgyz Marital Status Unknown Church Affiliation Unknown Race Unknown Ethnic Group Unknown Author Organization [place] Address [address] [place] [address] Phone Care Team Providers Name Role Phone Bernard Unavailable Unavailable Unavailable Unavailable Fe Unavailable Unavailable FACP Unavailable Unavailable Fly Unavailable Unavailable FERREIRA Unavailable Unavailable Avendano Unavailable Unavailable Problems date description facility 2013-02-19 14:51 OSTEOARTHROSIS-MULT SITE [facility] 2013-02-19 14:51 MYALGIA AND MYOSITIS NOS [facility] 2013-12-11 14:17 EMPHYSEMA [facility] 2013-12-11 14:17 HISTORY OF TOBACCO USE [facility] 2014-01-03 13:16 TOBACCO USE DISORDER [facility] 2014-01-03 13:16 EMPHYSEMA [facility] 2014-01-03 13:16 COUGH [facility] 2014-03-08 23:32 SYNCOPE AND COLLAPSE [facility] 2015-01-20 13:40 CHRONIC HEPATITIS C W/O HEPATIC [facility] COMA 2015-01-20 13:40 CHR AIRWAY OBSTRUCT NEC [facility] 2015-01-20 13:40 ARTHROPATHY NOS-UNSPEC [facility] 2015-01-20 13:40 [id number], [facility] COMBINED [DTP] [DTAP] 2015-02-10 14:00 UNSPEC CONSTIPATION [facility] 2015-02-10 14:00 RECTAL ANAL HEMORRHAGE [facility] 2015-02-10 14:00 UNSPECIFIED URINARY INCONTINENCE [facility] 2015-02-12 12:30 CHRONIC HEPATITIS C W/O HEPATIC [facility] COMA 2015-02-12 12:30 LOSS OF WEIGHT [facility] 2015-02-12 12:30 SCREEN LIPOID DISORDERS [facility] 2015-02-14 08:46 BENIGN NEOPLASM LG BOWEL [facility] 2015-02-14 08:46 HYPERTENSION NOS [facility] 2015-02-14 08:46 INT HEMRRHOID W COMP [facility] 2015-02-14 08:46 EXT HEMORRHOID W/O COMPL [facility] 2015-02-14 08:46 CHR AIRWAY OBSTRUCT NEC [facility] 2015-02-14 08:46 UNSPEC CONSTIPATION [facility] 2015-02-14 08:46 RECTAL ANAL HEMORRHAGE [facility] 2015-02-18 13:59 UNSPECIFIED VIRAL HEPATITIS C [facility] WITHOUT HEPATIC COMA 2015-02-18 13:59 JOINT PAIN-PELVIS [facility] 2015-02-18 13:59 DISC DIS NEC/NOS-LUMBAR [facility] 2015-02-21 10:28 LOC OSTEOARTH NOS-HAND [facility] 2015-02-21 10:28 LOC OSTEOARTH NOS-PELVIS [facility] 2015-02-21 10:28 LUMBOSACRAL SPONDYLOSIS [facility] 2015-02-21 10:28 LUMB/LUMBOSAC DISC DEGEN [facility] 2015-02-21 10:28 SCOLIOSIS IN OTH DIS [facility] [place] 2015-03-13 11:18 ARTHROPATHY NOS-UNSPEC [facility] 2015-12-15 11:17 NICOTINE DEPENDENCE, CIGARETTES, [facility] UNCOMPLICATED 2015-12-15 11:17 EMPHYSEMA, UNSPECIFIED [facility] 2015-12-15 11:17 ENCNTR SCREEN FOR MALIGNANT [facility] NEOPLASM OF RESPIRATORY ORGANS 2016-06-25 13:48 UNSPECIFIED VIRAL HEPATITIS C [facility] WITHOUT HEPATIC COMA 2016-06-25 13:48 ESSENTIAL (PRIMARY) HYPERTENSION [facility] 2016-07-05 08:00 UNSPECIFIED VIRAL HEPATITIS C [facility] WITHOUT HEPATIC COMA 2016-08-18 17:00 UNSPECIFIED VIRAL HEPATITIS C [facility] WITHOUT HEPATIC COMA 2017-04-12 15:05 UNILATERAL PRIMARY [facility] OSTEOARTHRITIS, LEFT HIP 2017-04-12 15:05 PAIN IN LEFT HIP [facility] 2017-04-16 13:33 CYST OF EPIDIDYMIS [facility] 2017-09-05 08:00 ESSENTIAL (PRIMARY) HYPERTENSION [facility] 2017-09-10 08:00 ANEMIA, UNSPECIFIED [facility] 2017-10-31 08:00 UNSPECIFIED VIRAL HEPATITIS C [facility] WITHOUT HEPATIC COMA 2017-11-07 08:00 UNSPECIFIED VIRAL HEPATITIS C [facility] WITHOUT HEPATIC COMA 2017-11-30 12:33 UNSPECIFIED VIRAL HEPATITIS C [facility] WITHOUT HEPATIC COMA 2018-02-23 13:17 ENCOUNTER FOR OTHER PREPROCEDURAL [facility] EXAMINATION 2018-04-07 13:40 ESSENTIAL (PRIMARY) HYPERTENSION [facility] 2018-04-07 13:40 ABNORMAL ELECTROCARDIOGRAM [ECG] [facility] [EKG] 2018-04-07 13:40 ENCOUNTER FOR OTHER PREPROCEDURAL [facility] EXAMINATION 2018-04-12 12:10 ENCOUNTER FOR OTHER SPECIFIED [facility] SPECIAL EXAMINATIONS 2018-06-20 11:39 UNSPECIFIED VIRAL HEPATITIS C [facility] WITHOUT HEPATIC COMA 2018-06-20 11:39 NICOTINE DEPENDENCE, UNSPECIFIED, [facility] UNCOMPLICATED 2018-06-20 11:39 OTHER CHRONIC PAIN [facility] 2018-06-20 11:39 ESSENTIAL (PRIMARY) HYPERTENSION [facility] 2018-06-20 11:39 BILATERAL PRIMARY OSTEOARTHRITIS [facility] OF HIP 2018-06-20 11:39 LUMBAGO WITH SCIATICA, RIGHT SIDE [facility] 2018-06-20 11:39 LUMBAGO WITH SCIATICA, LEFT SIDE [facility] 2018-06-20 11:39 LOW BACK PAIN [facility] 2018-07-10 15:02 NICOTINE DEPENDENCE, UNSPECIFIED, [facility] UNCOMPLICATED 2018-07-10 15:02 ESSENTIAL (PRIMARY) HYPERTENSION [facility] 2018-07-10 15:02 PERIAPICAL ABSCESS WITHOUT SINUS [facility] 2018-07-10 15:02 OTHER SPECIFIED DISORDERS OF [facility] TEETH AND SUPPORTING STRUCTURES 2018-07-10 15:02 BILATERAL PRIMARY OSTEOARTHRITIS [facility] OF HIP 2019-01-04 17:02 ENTEROCOLITIS D/T CLOSTRIDIUM [facility] DIFFICILE, NOT SPCF RECUR 2019-01-04 17:02 UNSP ESCHERICHIA COLI THE [facility] CAUSE OF DISEASES CLASSD ELSWHR 2019-01-04 17:02 IRON DEFICIENCY ANEMIA SECONDARY [facility] TO BLOOD LOSS (CHRONIC) 2019-01-04 17:02 ANEMIA IN OTHER CHRONIC DISEASES [facility] CLASSIFIED ELSEWHERE 2019-01-04 17:02 MODERATE PROTEIN-CALORIE [facility] MALNUTRITION 2019-01-04 17:02 DEHYDRATION formerly [facility] 2019-01-04 17:02 ALCOHOL ABUSE, IN REMISSION [facility] 2019-01-04 17:02 NICOTINE DEPENDENCE, UNSPECIFIED, [facility] IN REMISSION 2019-01-04 17:02 MAJOR DEPRESSIVE DISORDER, SINGLE [facility] EPISODE, UNSPECIFIED 2019-01-04 17:02 POST-TRAUMATIC STRESS DISORDER, [facility] UNSPECIFIED 2019-01-04 17:02 ESSENTIAL (PRIMARY) HYPERTENSION [facility] 2019-01-04 17:02 EMPHYSEMA, UNSPECIFIED [facility] 2019-01-04 17:02 UNSPECIFIED OSTEOARTHRITIS, [facility] UNSPECIFIED SITE 2019-01-04 17:02 ACUTE KIDNEY FAILURE, UNSPECIFIED [facility] 2019-01-04 17:02 URINARY TRACT INFECTION, SITE NOT [facility] SPECIFIED 2019-01-04 17:02 OTHER SPECIFIED URINARY [facility] INCONTINENCE 2019-01-04 17:02 BENIGN PROSTATIC HYPERPLASIA WITH [facility] LOWER URINARY TRACT SYMP 2019-01-04 17:02 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 2019-01-04 17:02 OTHER RETENTION OF URINE [facility] 2019-01-04 17:02 ABNORMAL LEVELS OF OTHER SERUM [facility] ENZYMES 2019-01-04 17:02 BODY MASS INDEX (BMI) 19.9 OR [facility] LESS, ADULT 2019-01-04 17:02 RESERVE OFFICER (CURRENT) USE OF [facility] NON-STEROIDAL NON-INFLAM (NSAID) 2019-01-04 17:02 HALFWAY (CURRENT) USE OF [facility] INHALED STEROIDS 2019-01-04 17:02 OTHER HALFWAY (CURRENT) DRUG [facility] THERAPY 2019-01-04 17:02 PERSONAL HISTORY OF OTHER [facility] INFECTIOUS AND PARASITIC DISEASES 2019-01-24 15:03 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 COLI] 2020-01-07 16:53 DEHYDRATION [facility] 2020-01-07 16:53 HYPOKALEMIA [facility] 2020-01-07 16:53 OTHER STIMULANT ABUSE, [facility] [place] UNCOMPLICATED 2020-01-07 16:53 NICOTINE DEPENDENCE, UNSPECIFIED, [facility] UNCOMPLICATED 2020-01-07 16:53 NICOTINE DEPENDENCE, CIGARETTES, [facility] UNCOMPLICATED 2020-01-07 16:53 MAJOR DEPRESSIVE DISORDER, SINGLE [facility] EPISODE, UNSPECIFIED 2020-01-07 16:53 POST-TRAUMATIC STRESS DISORDER, [facility] UNSPECIFIED 2020-01-07 16:53 ESSENTIAL (PRIMARY) HYPERTENSION [facility] 2020-01-07 16:53 HYPERTENSIVE CHRONIC KIDNEY [facility] DISEASE W STG 1-4/UNSP CHR KDNY 2020-01-07 16:53 ANGINA PECTORIS, UNSPECIFIED [facility] 2020-01-07 16:53 CHRONIC OBSTRUCTIVE PULMONARY [facility] DISEASE, UNSPECIFIED 2020-01-07 16:53 OTHER OBSTRUCTIVE AND REFLUX [facility] UROPATHY 2020-01-07 16:53 ACUTE KIDNEY FAILURE, UNSPECIFIED [facility] 2020-01-07 16:53 CHRONIC KIDNEY DISEASE, [facility] UNSPECIFIED 2020-01-07 16:53 URINARY TRACT INFECTION, SITE NOT [facility] SPECIFIED 2020-01-07 16:53 BENIGN PROSTATIC HYPERPLASIA WITH [facility] LOWER URINARY TRACT SYMP 2020-01-07 16:53 COUGH [facility] 2020-01-07 16:53 UNSPECIFIED URINARY INCONTINENCE [facility] 2020-01-07 16:53 RETENTION OF URINE, UNSPECIFIED [facility] 2020-01-07 16:53 SEVERE SEPSIS WITHOUT SEPTIC [facility] SHOCK 2020-01-07 16:53 ELEVATED URINE LEVELS OF [facility] DRUG/MEDS/BIOL SUBST 2020-01-07 16:53 ENCNTR FOR OBS FOR SUSP EXPSR TO [facility] OTH BIOLG AGENTS RULED OUT 2020-01-07 16:53 OTHER PROBLEMS RELATED TO [facility] LIFESTYLE 2020-01-07 16:53 RESERVE OFFICER (CURRENT) USE OF [facility] INHALED STEROIDS 2020-04-26 14:49 Encounter for screening for other [facility] viral diseases 2020-04-26 14:58 Encounter for screening for other 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, LUMBAR REG 2020-06-22 09:49 ACUTE PYELONEPHRITIS [facility] [place] 2020-06-22 09:49 TACHYCARDIA, UNSPECIFIED [facility] 2020-06-22 09:49 FEVER, UNSPECIFIED [facility] 2020-06-22 09:49 CONTACT W AND EXPOSURE TO OTH [facility] VIRAL COMMUNICABLE D 2020-06-22 09:49 PERSONAL HISTORY OF NICOTINE [facility] DEPENDENCE 2020-06-22 15:33 Fever, Epidural abcess [employer] 2020-07-02 00:00 OSTEOMYELITIS OF VERTEBRA, LUMBAR id [facility] REGION 2020-07-02 00:00:00 Pyogenic arthritis, [facility]:00:00 Pain in joint involving shoulder id [facility] 2020-07-02 00:00:00 Spinal [facility] 2020-07-02 00:00:00 Pyogenic arthritis, unspecified [facility] 2020-07-02 00:00:00 [facility] 2020-07-02 00:00:00 Spinal stenosis, site [facility] 2020-07-02 00:00:00 Pain of left shoulder [facility] 2020-07-02 00:00:00 Tobacco use and exposure [facility] 2020-07-02 00:00:00 Details of drug misuse [facility]:00:00 [facility]ur[facility] 2020-07-02 00:00:00 [facility] 2020-07-02 00:00:00 Tobacco smoking status [facility]IS [facility] 2020-07-02 00:00:00 [facility] 2020-07-02 00:00:00 [facility] 2020-07-02 19:45 OSTEOMYELITIS OF VERTEBRA, LUMBAR [facility] 2020-07-08 09:31 ESSENTIAL (PRIMARY) HYPERTENSION [facility] 2020-07-08 09:31 NONTRAUMATIC HEMATOMA OF SOFT [facility] TISSUE 2020-07-08 09:31 PERSONAL HISTORY OF NICOTINE [facility] DEPENDENCE 2020-07-08 09:31 PRESENCE OF OTHER VASCULAR [facility] IMPLANTS AND GRAFTS 2020-07-09 00:00 OSTEOMYELITIS OF VERTEBRA, [facility] THORACIC REGION 2020-07-09 00:00 INFECTIVE MYOSITIS, OTHER SITE [facility] 2020-07-09 07:00 OSTEOMYELITIS OF VERTEBRA, [facility] THORACIC REGION 2020-07-09 07:00 INFECTIVE MYOSITIS, OTHER SITE [facility] 2020-07-16 00:00 OSTEOMYELITIS OF VERTEBRA, [facility] THORACIC REGION 2020-07-16 00:00 INFECTIVE MYOSITIS, OTHER SITE [facility] 2020-07-16 11:10 OSTEOMYELITIS OF VERTEBRA, [facility] THORACIC REGION 2020-07-16 11:10 INFECTIVE MYOSITIS, OTHER SITE [facility] 2020-07-22 00:00 OSTEOMYELITIS OF VERTEBRA, [facility] THORACIC REGION 2020-07-22 00:00 INFECTIVE MYOSITIS, OTHER SITE [facility] 2020-07-22 07:00 OSTEOMYELITIS OF VERTEBRA, [facility] THORACIC REGION 2020-07-22 07:00 INFECTIVE MYOSITIS, OTHER SITE [facility] 2020-07-23 00:00 OSTEOMYELITIS OF VERTEBRA, [facility] THORACIC REGION 2020-07-23 00:00 INFECTIVE MYOSITIS, OTHER SITE [facility] 2020-07-23 07:00 OSTEOMYELITIS OF VERTEBRA, [facility] THORACIC REGION 2020-07-23 07:00 INFECTIVE MYOSITIS, OTHER SITE [facility] 2020-07-30 00:00 OSTEOMYELITIS OF VERTEBRA, [facility] THORACIC REGION 2020-07-30 00:00 INFECTIVE MYOSITIS, OTHER SITE [facility] 2020-07-30 07:00 OSTEOMYELITIS OF VERTEBRA, [facility] 2020-07-30 07:00 INFECTIVE MYOSITIS, OTHER SITE [facility] 2020-08-06 00:00 INTRASPINAL ABSCESS AND GRANULOMA [facility] 2020-08-06 00:00 CHRONIC OBSTRUCTIVE PULMONARY [facility] DISEASE, UNSPECIFIED 2020-08-06 00:00 OSTEOMYELITIS OF VERTEBRA, LUMBAR [facility] REGION 2020-08-06 11:27 INTRASPINAL ABSCESS AND GRANULOMA [facility] 2020-08-06 11:27 CHRONIC OBSTRUCTIVE PULMONARY [facility] DISEASE, UNSPECIFIED 2020-08-06 11:27 OSTEOMYELITIS OF VERTEBRA, LUMBAR [facility] REGION 2020-08-07 00:00:00 Other general symptoms [facility] 2020-08-07 00:00:00 Other amnesia [facility] 2020-08-07 00:00:00 Tobacco use and exposure [facility] 2020-08-07 00:00:00 Memory impairment [facility] 2020-08-07 00:00:00 Tobacco smoking status NHIS [facility] 2020-08-07 00:00:00 Former smoker [facility] Allergies date description facility [facility] BEE [facility] CY[facility]ZAPRINE [facility] D[facility]AM [facility] GRASSLEAF [facility] RHIZOME [facility] [place] INSULIN ASPART [facility] LORAZEPAM [facility] MERCURY [facility] PROCHLORPERAZINE [facility] LEVOTHYROXINE SODIUM [facility] MINOCYCLINE HCL [facility] NO KNOWN ENVIRONMENTAL ALLERGIES [facility] AMPICILLIN [facility] CODEINE [facility] PENICILLIN [facility] SULFA (SULFONAMIDE ANTIBIOTICS) [facility] SULFAMETHOXAZOLE [facility] TRIMETHOPRIM [facility] No Known Medication Allergies [facility] NO KNOWN ALLERG[facility] CABBAGE [facility] GARLIC [facility] LACTOSE INTOLERANCE (GI) [facility]ION [facility] WHEY [facility] HY[facility]OXYZINE [facility] DROPERIDOL [facility] HALOPERIDOL [facility] CODEINE [facility] DYE [facility] NAPROXEN [facility] HYMENOPTERA ALLERGENIC EXTRACT [facility] FAMOTIDINE [facility] LAMOTRIGINE [facility] PROMETHAZINE [facility] DIPHENHYDRAMINE [facility] BEE VENOM PROTEIN (HONEY BEE) [facility] IOHEXOL [facility] MIXED VESPID VENOM [facility] Warfarin Sodium [facility] traMADol [facility] aspirin [facility] No Known Drug Allergies [facility] methotrexate [facility] ACYCLOVIR [facility] MERCURY [facility] MINOCYCLINE HCL [facility] Penicillins [facility] Sulfa (Sulfonamide Antibiotics) [facility] cyclobenzaprine [facility] doxycycline [facility] morphine [facility] pseudoephedrine [facility] triprolidine [facility] Cantaloupe [facility] No Known [facility]erg[facility] DULOXETINE [facility] GABAPENTIN [facility] IBUPROFEN [facility] MORPHINE [facility] PREGABALIN [facility] NO ALLERGY INFORMATION AVAILABLE [facility] NO KNOWN ALLERGIES [facility] FOOD [facility] CINNAMON [facility] NUTMEG OIL (MYRISTICA SEED OIL) [facility] CEPHALEXIN [facility] BEE VENOM PROTEIN (HONEY BEE) [facility] penicillin [facility] NO KNOWN ENVIRONMENTAL ALLERGIES [facility] NO KNOWN ALLERGIES [facility] No Known Drug Allergies [facility] PENICILLIN [facility] CYCLOBENZAPRINE [facility] DIAZEPAM [facility] INSULIN ASPART [facility] LORAZEPAM [facility] PROCHLORPERAZINE [facility] LEVOTHYROXINE SODIUM [facility] NO KNOWN ENVIRONMENTAL ALLERGIES [facility] [place] Penicillins [facility] Sulfa (Sulfonamide Antibiotics) [facility] cyclobenzaprine [facility] doxycycline [facility] morphine [facility] pseudoephedrine [facility] triprolidine [facility] PENICILLINS [facility] BISPHOSPHONATES [facility] NO KNOWN ALLERGIES [facility] CEPHALEXIN [facility] Results Social History date description facility 2020-07-02 00:00:00 [facility] date description facility 2020-08-07 00:00:00 [facility] Social History date description facility 2020-07-02 00:00:00 [facility] date description facility 2020-08-07 00:00:00 [facility] date description facility [id number]
== END 2020-07-30 23:59 | disposition home or self-care (01) ==
LOC: LAB.R 07:00
PROVIDERS: ATTEND Internal Medicine
DX: M60.08 Infective myositis, other site (principal); M46.24 Osteomyelitis of vertebra, thoracic region
CPT/HCPCS: 36415; 80053; 85025; 85651; 86140

== ENCOUNTER 2020-08-06 11:27 | Outpatient (CLI) | payer MEDICARE, MEDICAID ==
[2020-08-06 14:17] LABS: ALBUMIN 3.5 g/dL (3.2-5.5); ALBUMIN/GLOBULIN RATIO 0.8 (1.0-2.2); ALKALINE PHOSPHATASE 67 IU/L (42-121); ALT ALANINE AMINOTRANSFERASE < 10 IU/L (10-60); AST ASPARTATE AMINOTRANSFERASE 18 IU/L (10-42); BUN - BLOOD UREA NITROGEN 21 mg/dL (6-20); CALCIUM 7.9 mg/dL (8.5-10.3); CARBON DIOXIDE - CO2 23 mmol/L (21-32); CHLORIDE 94 mmol/L (101-111); CREATININE 1.2 mg/dL (0.6-1.2); CRP - C-REACTIVE PROTEIN 2.7 mg/dL (0-1.0); GFR - MDRD 61 (>89); GLUCOSE 103 mg/dL (70-100); POTASSIUM 3.5 mmol/L (3.5-5.0); TOTAL PROTEIN 7.9 g/dL (6.7-8.2)
[2020-08-06 14:19] LABS: BILIRUBIN,TOTAL < 0.2 mg/dL (0.2-1.0)
[2020-08-06 14:25] LABS: SODIUM 119 mmol/L (135-145)
[2020-08-07 16:58] LABS: BASOPHILS % (AUTO) 0.4 %; HCT - HEMATOCRIT 33.9 % (42.0-52.0); HGB - HEMOGLOBIN 10.9 g/dL (14.0-18.0); LYMPHOCYTES # (AUTO) 0.7 10^3/uL (1.5-3.5); LYMPHOCYTES % (AUTO) 29.8 %; MEAN CORPUSCULAR HGB CONC 32.2 g/dL (32.0-36.0); MEAN CORPUSCULAR VOLUME 90.2 fL (80.0-94.0); MEAN PLATELET VOLUME 8.9 fL (7.4-11.4); MONOCYTES # (AUTO) 0.5 10^3/uL (0.0-1.0); MONOCYTES % (AUTO) 21.3 %; NEUTROPHILS # (AUTO) 1.1 10^3/uL (1.5-6.6); NEUTROPHILS % (AUTO) 48.1 %; PLT - PLATELET COUNT 319 10^3/uL (130-450); RED BLOOD COUNT 3.76 10^6/uL (4.70-6.10); RED CELL DISTRIBUTION WIDTH 13.8 % (12.0-15.0); WHITE BLOOD COUNT 2.4 x10^3/uL (4.8-10.8)
[2020-08-07 17:09] LABS: SLIDE REVIEW? Indicated
[2020-08-07 17:50] LABS: PLATELET ESTIMATE, MANUAL NORMAL (130-450,000) (NORMAL); PLATELET MORPHOLOGY NORMAL APPEARANCE (NORMAL)
[2020-08-07 17:51] LABS: DIFFERENTIAL COMMENT MANUAL=AUTO DIFF
== END 2020-08-06 23:59 | disposition home or self-care (01) ==
LOC: LAB.R 11:27
PROVIDERS: ATTEND Internal Medicine
DX: M46.26 Osteomyelitis of vertebra, lumbar region (principal); G06.1 Intraspinal abscess and granuloma; J44.9 Chronic obstructive pulmonary disease, unspecified
CPT/HCPCS: 80053; 85025; 85651; 86140

== ENCOUNTER 2020-08-13 08:00 | Outpatient (CLI) | payer MEDICARE, MEDICAID ==
[2020-08-13 12:30] LABS: HGB - HEMOGLOBIN 11.5 g/dL (14.0-18.0); LYMPHOCYTES % (AUTO) 36.5 %; MEAN CORPUSCULAR HEMOGLOBIN 29.3 pg (27.0-31.0); MEAN CORPUSCULAR HGB CONC 32.2 g/dL (32.0-36.0); MEAN CORPUSCULAR VOLUME 91.1 fL (80.0-94.0); MEAN PLATELET VOLUME 8.3 fL (7.4-11.4); MONOCYTES % (AUTO) 28.4 %; NEUTROPHILS % (AUTO) 35.1 %; PLT - PLATELET COUNT 344 10^3/uL (130-450); RED BLOOD COUNT 3.92 10^6/uL (4.70-6.10)
[2020-08-13 12:37] LABS: CALCIUM 9.6 mg/dL (8.5-10.3); CREATININE 1.3 mg/dL (0.6-1.2); CRP - C-REACTIVE PROTEIN 3.1 mg/dL (0-1.0)
[2020-08-13 12:41] LABS: ABNORMAL LYMPHS % (MANUAL) 0 %; BAND NEUTROPHILS % (MANUAL) 0 %
[2020-08-13 14:12] LABS: LYMPHOCYTES # (MANUAL) 0.8 10^3/uL (1.5-3.5); LYMPHOCYTES % (MANUAL) 39 %; MONOCYTES # (MANUAL) 0.7 10^3/uL (0.0-1.0); PLATELET ESTIMATE, MANUAL NORMAL (130-450,000) (NORMAL); PLATELET MORPHOLOGY NORMAL APPEARANCE (NORMAL); RBC MORPHOLOGY (MULTIPLE) NORMAL APPEARANCE (NORMAL)
[2020-08-13 14:13] LABS: DIFFERENTIAL COMMENT MANUAL DIFFERENTIAL
== END 2020-08-13 23:59 ==
LOC: LAB.R 08:00
PROVIDERS: ATTEND Internal Medicine
DX: M60.08 Infective myositis, other site (principal); M46.24 Osteomyelitis of vertebra, thoracic region
CPT/HCPCS: 36415; 80048; 85025; 85651; 86140

== ENCOUNTER 2020-08-18 19:42 | Outpatient (CLI) | payer MEDICARE, MEDICAID | END 2020-08-18 19:43 | disposition critical access hospital (66) | LOC: EMS 19:42 | PROVIDERS: ATTEND Surgery | DX: R41.82 Altered mental status, unspecified (principal) | CPT/HCPCS: A0425; A0427 ==

== ENCOUNTER 2020-08-18 19:55 | Inpatient (IN) | payer MEDICARE, MEDICAID ==
--- NOTE | 2020-08-18 20:01 | ED Physician Documentation ---
PD HPI ALTERED MENTAL STATUS - Stated complaint Stated Complaint: AMS - History obtained from History obtained from: EMS - Additional information Additional information: 65-year-old gentleman found down by roommates. Last known normal was 2300 last night. No history available from the patient. Review of the chart shows that he has a history of osteomyelitis of the spine. Was on PICC line antibiotics for that. But minimal also has a history of methamphetamine abuse. Review of Systems Unable to obtain: Confused PD PAST MEDICAL HISTORY - Past Medical History Cardiovascular: Hypertension, Angina Respiratory: COPD, Other Neuro: None Endocrine/Autoimmune: None GI: Colon polyps, Hepatitis : Retention, Incontinence HEENT: None Psych: Depression, Post traumatic stress disorder Musculoskeletal: Osteoarthritis Derm: None - Past Surgical History Past Surgical History: Yes General: Other HEENT: Tonsil/Adenoidectomy - Present Medications Home Medications: Ambulatory Orders Medication Instructions Recorded Confirmed Albuterol Sulf [Ventolin Hfa 2 puffs INH QID 06/20/18 01/08/20 Inhaler] Metoprolol Succinate 25 mg PO DAILY 06/20/18 01/08/20 FLUoxetine [PROzac] 20 mg PO DAILY 01/04/19 01/08/20 Cyclobenzaprine [Flexeril] 10 mg PO TID PRN 01/08/20 01/08/20 Gabapentin [Neurontin] 300 mg PO TID 01/08/20 01/08/20 Umeclidinium Brm/Vilanterol Tr 1 puffs INH DAILY 01/08/20 01/08/20 [Anoro Ellipta 62.5-25 Mcg INH] Umeclidinium [place] [Incruse 1 puffs INH DAILY 01/08/20 01/08/20 Ellipta] Potassium Chloride 20 meq PO DAILY #7 tablet.er 01/11/20 Saccharomyces Boulardii [Florastor] 250 mg PO BID #14 capsule 01/11/20 Tamsulosin [Flomax] 0.4 mg PO DAILY #30 capsule 01/11/20 Vancomycin [Vancocin] 125 mg PO QID #15 capsule 01/11/20 cefUROXime axetiL [Ceftin] 500 mg PO BID #20 tablet 01/11/20 - Allergies Allergies/Adverse Reactions: Allergies Allergy/AdvReac Type Severity Reaction Status Date / Time No Known Drug Allergies Allergy Verified 07/08/20 09:55 - Social History Does the pt smoke?: No Smoking Status: Former smoker Does the pt drink ETOH?: Yes Does the pt have substance abuse?: No - Immunizations Immunizations are current?: Yes - POLST Patient has POLST: No POLST Status: Full Code PD ED PE NORMAL - Vitals Vital signs reviewed: Yes - General General: Other (Unresponsive gentleman laying in bed in no distress, potential left gaze preference, small pupils) - Neck Neck: Supple, no meningeal sign - Cardiac Cardiac: RRR, No murmur - Respiratory Respiratory: No respiratory distress, Clear bilaterally - Abdomen Abdomen: Non tender - Derm Derm: Normal color, Warm and dry - Neuro Eye Opening: None Motor: None Verbal: None GCS Score: 3 Results - Vitals Vitals: Vital Signs - 24 hr 08/18/20 08/18/20 08/18/20 19:55 20:00 21:00 Temperature 37.3 C Heart Rate 85 78 Respiratory 18 18 Rate Blood Pressure 185/124 H 168/126 H O2 Saturation 100 100 08/18/20 08/18/20 08/18/20 21:30 22:00 22:30 Temperature Heart Rate 36 L 76 70 Respiratory 18 16 18 Rate Blood Pressure 192/109 H 201/118 H 178/110 H O2 Saturation 100 100 100 Oxygen O2 Source Room air - EKG (time done) 2203 Rate: Rate (enter#) (70) Rhythm: NSR [place]: Normal Intervals: Normal [place], Prolonged QT QRS: Normal Ischemia: Normal ST segments Computer interpretation: Agree with computer - Labs Labs: Laboratory Tests 08/18/20 08/18/20 08/18/20 20:20 20:20 20:20 WBC 3.8 L RBC 4.29 L Hgb 12.3 L Hct 39.3 L MCV 91.6 MCH 28.7 MCHC 31.3 L RDW 14.1 Plt Count 344 MPV 8.0 Neut # (Auto) 2.4 Lymph # (Auto) 0.6 L [place] # (Auto) 0.8 Eos # (Auto) 0.0 Baso # (Auto) 0.0 Absolute Nucleated RBC 0.00 Nucleated RBC % 0.0 PT 14.0 H INR 1.3 H VBG pH VBG pCO2 VBG pO2 VBG HCO3 VBG Total CO2 VBG O2 Saturation VBG Base Excess Sodium 140 Potassium 3.5 Chloride 100 L Carbon Dioxide 26 Anion Gap 14.0 H BUN 19 Creatinine 1.4 H Estimated GFR (MDRD) 51 L Glucose 130 H Lactic Acid Calcium 9.2 Magnesium 2.5 Total Bilirubin 0.9 AST 48 H ALT 11 Alkaline Phosphatase 74 Total Creatine Kinase 3699 H* Troponin I High Sens Total Protein 8.3 H Albumin 3.9 Globulin 4.4 H Albumin/Globulin Ratio 0.9 L Lipase 30 Nasal Adenovirus (PCR) Nasal B. parapertussis DNA (PCR) Nasal Coronavir 229E PCR Nasal Coronavir HKU1 PCR Nasal Coronavir NL63 PCR Nasal Coronavir OC43 PCR Nasal Enterovir/Rhinovir PCR Nasal Influenza B PCR Nasal Influenza A PCR Nasal Parainfluen 1 PCR Nasal Parainfluen 2 PCR Nasal Parainfluen 3 PCR Nasal Parainfluen 4 PCR Nasal RSV (PCR) Nasal B.pertussis DNA PCR Nasal C.pneumoniae (PCR) [place] Human Metapneumo PCR Nasal M.pneumoniae (PCR) Nasal SARS-CoV-2 (PCR) Salicylates < 6.0 Urine Opiates Screen Ur Oxycodone Screen Urine Methadone Screen Ur Propoxyphene Screen Acetaminophen < 10 L Ur Barbiturates Screen Ur Tricyclics Screen Ur Phencyclidine Scrn Ur Amphetamine Screen U Methamphetamines Scrn U Benzodiazepines Scrn Urine Cocaine Screen U Cannabinoids Screen Ethyl Alcohol < 5.0 08/18/20 08/18/20 08/18/20 20:20 20:20 20:20 WBC RBC Hgb Hct MCV MCH MCHC RDW Plt Count MPV Neut # (Auto) Lymph # (Auto) [place] # (Auto) Eos # (Auto) Baso # (Auto) Absolute Nucleated RBC Nucleated RBC % PT INR VBG pH 7.374 VBG pCO2 38.8 L VBG pO2 26.9 VBG HCO3 22.1 L VBG Total CO2 23.3 L VBG O2 Saturation 55.7 L VBG Base Excess -2.7 L Sodium Potassium Chloride Carbon Dioxide Anion Gap BUN Creatinine Estimated GFR (MDRD) Glucose Lactic Acid 1.9 Calcium Magnesium Total Bilirubin AST ALT Alkaline Phosphatase Total Creatine Kinase Troponin I High Sens 36.8 H* Total Protein Albumin Globulin Albumin/Globulin Ratio Lipase Nasal Adenovirus (PCR) Nasal B. parapertussis DNA (PCR) Nasal Coronavir 229E PCR Nasal Coronavir HKU1 PCR Nasal Coronavir NL63 PCR Nasal Coronavir OC43 PCR Nasal Enterovir/Rhinovir PCR Nasal Influenza B PCR Nasal Influenza A PCR Nasal Parainfluen 1 PCR Nasal Parainfluen 2 PCR Nasal Parainfluen 3 PCR Nasal Parainfluen 4 PCR Nasal RSV (PCR) Nasal B.pertussis DNA PCR Nasal C.pneumoniae (PCR) [place] Human Metapneumo PCR Nasal M.pneumoniae (PCR) Nasal SARS-CoV-2 (PCR) Salicylates Urine Opiates Screen Ur Oxycodone Screen Urine Methadone Screen Ur Propoxyphene Screen Acetaminophen Ur Barbiturates Screen Ur Tricyclics Screen Ur Phencyclidine Scrn Ur Amphetamine Screen U Methamphetamines Scrn U Benzodiazepines Scrn Urine Cocaine Screen U Cannabinoids Screen Ethyl Alcohol 08/18/20 08/18/20 20:25 21:20 WBC RBC Hgb Hct MCV MCH MCHC RDW Plt Count MPV Neut # (Auto) Lymph # (Auto) [place] # (Auto) Eos # (Auto) Baso # (Auto) Absolute Nucleated RBC Nucleated RBC % PT INR VBG pH VBG pCO2 VBG pO2 VBG HCO3 VBG Total CO2 VBG O2 Saturation VBG Base Excess Sodium Potassium Chloride Carbon Dioxide Anion Gap BUN Creatinine Estimated GFR (MDRD) Glucose Lactic Acid Calcium Magnesium Total Bilirubin AST ALT Alkaline Phosphatase Total Creatine Kinase Troponin I High Sens Total Protein Albumin Globulin Albumin/Globulin Ratio Lipase Nasal Adenovirus (PCR) NOT DETECTED Nasal B. parapertussis DNA (PCR) NOT DETECTED Nasal Coronavir 229E PCR NOT DETECTED Nasal Coronavir HKU1 PCR NOT DETECTED Nasal Coronavir NL63 PCR NOT DETECTED Nasal Coronavir OC43 PCR NOT DETECTED Nasal Enterovir/Rhinovir PCR NOT DETECTED Nasal Influenza B PCR NOT DETECTED Nasal Influenza A PCR NOT DETECTED Nasal Parainfluen 1 PCR NOT DETECTED Nasal Parainfluen 2 PCR NOT DETECTED Nasal Parainfluen 3 PCR NOT DETECTED Nasal Parainfluen 4 PCR NOT DETECTED Nasal RSV (PCR) NOT DETECTED Nasal B.pertussis DNA PCR NOT DETECTED Nasal C.pneumoniae (PCR) NOT DETECTED [place] Human Metapneumo PCR NOT DETECTED Nasal M.pneumoniae (PCR) NOT DETECTED Nasal SARS-CoV-2 (PCR) NOT DETECTED Salicylates Urine Opiates Screen NEGATIVE Ur Oxycodone Screen NEGATIVE Urine Methadone Screen NEGATIVE Ur Propoxyphene Screen NEGATIVE Acetaminophen Ur Barbiturates Screen NEGATIVE Ur Tricyclics Screen NEGATIVE Ur Phencyclidine Scrn NEGATIVE Ur Amphetamine Screen POSITIVE H U Methamphetamines Scrn POSITIVE H U Benzodiazepines Scrn NEGATIVE Urine Cocaine Screen NEGATIVE U Cannabinoids Screen NEGATIVE Ethyl Alcohol - Rads (name of study) CTA Head Radiology: EMP read contemporaneously (NAD) PD MEDICAL DECISION MAKING - ED course ED course: 65-year-old gentleman presents wwith AMS. Reportedly was more interactive in route. His blood sugar prior to arrival was in the 170s. After initial evaluation we gave him 0.4 mg of Narcan. He did seem to become more awake. The son was at the bedside. Did not think he has been into any drugs lately. He does have a history of meth use though. He does have a left gaze preference, does not respond to painful stimulus in the right upper extremity, but does withdraw to painful stimulus in the other extremities. Discussed with son he is probably not a TPA candidate as last known normal was about 20 hours ago. Per son 3 days ago changes from from cefazolin to nafcillin per the son, 3 days ago for his osteomyelitis of the spine noting he has a left upper extremity PICC line, this was for increasing white count. He became more arousable, actually became somewhat agitated. Work-up here demonstrated low normal white count, evidence of rhabdomyolysis and mild acute kidney injury, modest elevation in troponin, CTA of the head and neck were negative. He was started on IV fluids, 1 L wide open and then twice maintenance. He was straight cathed for urine but there was a large amount in his bladder and ended up needing a Elizondo with greater than 1 L out. This is not a new issue for him. He has a history of prostatic issues. Dr Bradford admitting. Dx AMS, prob meth use, rhabdo. Doubt CVA but possible, not tpa candidate. Departure - Departure Disposition: 65 [facility] DC/Xfer Clinical Impression: Stroke-like symptoms, Urinary retention, Methamphetamine abuse Altered mental status Qualifiers: Altered mental status type: delirium Qualified Code(s): R41.0 - Disorientation, unspecified Condition: Serious Discharge Date/Time: 08/18/20 22:55
[2020-08-18] MEDS ORDERED: NALOXONE 0.4 MG/ML VIAL ONE (20:12)
[2020-08-18 20:29] LABS: HGB - HEMOGLOBIN 12.3 g/dL (14.0-18.0); LYMPHOCYTES # (AUTO) 0.6 10^3/uL (1.5-3.5); LYMPHOCYTES % (AUTO) 16.6 %; MEAN CORPUSCULAR HEMOGLOBIN 28.7 pg (27.0-31.0); MEAN CORPUSCULAR HGB CONC 31.3 g/dL (32.0-36.0); MEAN CORPUSCULAR VOLUME 91.6 fL (80.0-94.0); MONOCYTES # (AUTO) 0.8 10^3/uL (0.0-1.0); MONOCYTES % (AUTO) 20.3 %; NEUTROPHILS # (AUTO) 2.4 10^3/uL (1.5-6.6); NEUTROPHILS % (AUTO) 62.8 %; PLT - PLATELET COUNT 344 10^3/uL (130-450); RED BLOOD COUNT 4.29 10^6/uL (4.70-6.10); RED CELL DISTRIBUTION WIDTH 14.1 % (12.0-15.0); WHITE BLOOD COUNT 3.8 x10^3/uL (4.8-10.8)
[2020-08-18 20:33] LABS: VBG PCO2 38.8 mmHg (41-51); VBG PH 7.374 (7.31-7.41); VBG PO2 26.9 mmHg (25-47)
[2020-08-18 20:34] LABS: VBG BASE EXCESS -2.7 mmol/L (-2 - +2); VBG TOTAL CO2 23.3 mmol/L (24-29)
[2020-08-18 20:36] LABS: INR 1.3 (0.8-1.2)
[2020-08-18] MEDS ORDERED: IOVERSOL 320 100 ML VIAL IVP ONE ×2 (20:46→21:17)
[2020-08-18 21:02] LABS: ACETAMINOPHEN < 10 ug/mL (10-30); ALBUMIN 3.9 g/dL (3.2-5.5); ALBUMIN/GLOBULIN RATIO 0.9 (1.0-2.2); ALKALINE PHOSPHATASE 74 IU/L (42-121); ALT ALANINE AMINOTRANSFERASE 11 IU/L (10-60); AST ASPARTATE AMINOTRANSFERASE 48 IU/L (10-42); BILIRUBIN,TOTAL 0.9 mg/dL (0.2-1.0); BUN - BLOOD UREA NITROGEN 19 mg/dL (6-20); CALCIUM 9.2 mg/dL (8.5-10.3); CARBON DIOXIDE - CO2 26 mmol/L (21-32); CHLORIDE 100 mmol/L (101-111); CREATININE 1.4 mg/dL (0.6-1.2); GLUCOSE 130 mg/dL (70-100); LIPASE 30 U/L (22-51); MAGNESIUM 2.5 mg/dL (1.7-2.8); SALICYLATE < 6.0 mg/dL; TOTAL PROTEIN 8.3 g/dL (6.7-8.2)
[2020-08-18 21:03] LABS: CK- CREATINE KINASE 3699 IU/L (22-269)
[2020-08-18] MEDS ORDERED: SODIUM CHLORIDE 0.9% 1,000 ML IV STA ×2 (21:03)
--- NOTE | 2020-08-18 21:26 | CT Report ---
PROCEDURE: ANGIO HEAD W/WO INDICATIONS: L sided facial droop CONTRAST: IV CONTRAST: Optiray 320 ml: 80 PO CONTRAST: *NO PO CONTRAST TECHNIQUE: Precontrast 4.5 mm thick angled axial sections acquired from the foramen magnum to the vertex. Afte r the administration of intravenous contrast, 1 mm thick sections acquired through the [place] is. Postcontrast 4.5 mm thick sections then re-acquired from the foramen magnum to the vertex. 3-di mensional stthffi-mlebuzifo-wublaokxpa (MIP) and/or volume rendering reformats were acquired of the c entral intracranial vasculature. For radiation dose reduction, the following was used: automated ex posure control, adjustment of mA and/or kV according to patient size. COMPARISON: None. FINDINGS: Image quality: There is motion artifact limiting evaluation. Anterior circulation: Intracranial internal carotid arteries are patent bilaterally. The paired ant erior cerebral arteries is patent bilaterally. The middle cerebral arteries is patent. The anterior communicating artery is patent. No high-grade stenosis, occlusion, or discrete filling defects. No cerebral aneurysm identified. Posterior circulation: Visualized portions of the vertebral arteries appear patent and join to form a patent basilar artery. The posterior cerebral arteries are patent bilaterally. No high-grade steno sis, occlusion, or discrete filling defects. No cerebral aneurysm identified. CSF spaces: Ventricles are normal in size and shape. Basal cisterns are patent. No extra-axial flu id collections. Brain: No definite intracranial hemorrhage, mass, or mass effect. Coy-white matter interface appears grossly preserved. No abnormal cranial enhancement. Skull and face: Calvarium and facial bones appear intact, without suspicious lesions. Sinuses: Visualized sinuses and mastoids are clear. IMPRESSION: 1. No definite acute intracranial abnormality. 2. No high-grade stenosis or occlusion of the central intracranial arteries. 3. No high-grade stenosis or occlusion of the head and neck arteries. Reviewed by: Evgeyn Arteaga MD on 08/18/2020 9:25 PM PST Approved by: Evgeny Arteaga MD on 08/18/2020 9:25 PM PST Station ID: [id number]
[2020-08-18 21:28] LABS: C. PNEUMONIAE- RESP PCR PANEL NOT DETECTED
--- NOTE | 2020-08-18 21:28 | CT Report ---
PROCEDURE: ANGIO NECK W INDICATIONS: L sided facial droop, L neck pain CONTRAST: IV CONTRAST: Optiray 320 ml: 80 PO CONTRAST: *NO PO CONTRAST TECHNIQUE: After the administration of intravenous contrast, 1.5 mm axial sections acquired from the aortic arch to the [place]. Coronal 3-D maximum intensity projection (MIP) and/or volume rendering ref ormats were then performed. For radiation dose reduction, the following was used: automated exposur e control, adjustment of mA and/or kV according to patient size. COMPARISON: Concurrent CT angiogram of the brain. FINDINGS: Image quality: There is motion artifact limiting evaluation. Carotid system: The great vessels demonstrate a conventional anatomy as they arise from the aortic a rch. The origins of the common carotid arteries appear patent. The common carotid arteries demonstr ate normal calibers and courses. The bifurcation regions appear normal bilaterally. The carotid bone s appear widely patent. The internal carotid arteries demonstrate normal caliber and course. Posterior circulation: The origins of the vertebral arteries appear patent. The more superior porti ons of the vertebral arteries demonstrate normal course and caliber. They join to form a normal appe aring basilar artery. Soft tissues: Visualized neck soft tissues demonstrate no suspicious abnormalities. There are moder ate to severe centrilobular emphysematous changes within the visualized lungs. There are also parasep mary emphysematous changes within the apices. Bones: No suspicious bony lesions. Visualized cervical spine appears normally aligned. IMPRESSION: 1. No high-grade stenosis or occlusion of the head and neck arteries. Specifically, the carotid bulbs appear widely patent. The estimate of stenosis included in the report of the imaging study was calculated using the NASCET method Reviewed by: Evgeny Arteaga MD on 08/18/2020 9:26 PM PST Approved by: Evgeny Arteaga MD on 08/18/2020 9:26 PM PST Station ID: [id number]
[2020-08-18 21:30] LABS: MUDS CUTOFF CONCENTRATIONS CUTOFF CONC BELOW:
[2020-08-18 21:44] LABS: AMPHETAMINE SCREEN,URINE POSITIVE (NEGATIVE); BENZODIAZEPINES SCREEN, URINE NEGATIVE (NEGATIVE); COCAINE SCREEN URINE NEGATIVE (NEGATIVE); METHADONE SCREEN, URINE NEGATIVE (NEGATIVE); METHAMPHETAMINES SCREEN, URINE POSITIVE (NEGATIVE); OPIATE SCREEN, URINE NEGATIVE (NEGATIVE); OXYCODONE SCREEN, URINE NEGATIVE (NEGATIVE); PROPOXYPHENE SCREEN, URINE NEGATIVE (NEGATIVE); TRICYCLIC ANTIDEPRESSANT,URINE NEGATIVE (NEGATIVE)
[2020-08-18] MEDS ORDERED: NAFCILLIN 2 GM in SODIUM CHLORIDE 0.9% MINIBAG 100 ML IV STA (22:17)
[2020-08-18] MEDS ORDERED: ONDANSETRON 4 MG/2 ML VIAL IVP PRN (22:38)
[2020-08-18] MEDS ORDERED: hydrALAZINE INJ 20 MG/ML VIAL IVP STA (22:42)
[2020-08-18] MEDS ORDERED: ALBUTEROL 1 PUFF INH PRN (22:45)
[2020-08-18] MEDS ORDERED: hydrALAZINE INJ 20 MG/ML VIAL IVP SCH (23:00)
[2020-08-18] MEDS ORDERED: METOPROLOL 5 MG/5 ML VIAL IVP SCH (23:00)
--- NOTE | 2020-08-19 00:04 | HISTORY & PHYSICAL EXAMINATION ---
DATE OF SERVICE: 08/18/2020 Physician: Ellen Bradford MD HISTORY OF PRESENT ILLNESS: This is a 65-year-old white male with a history of methamphetamine abuse, COPD, hypertension, depression, BPH, osteomyelitis of the spine for which he has a PICC line and has been getting treatment over the last five weeks, on cefazolin and at that time, he was staying with his son, who was caring for him. Three days ago, the cefazolin was changed to nafcillin order because of a higher white blood count, according to the sons report given to the ER doctor. At that time because nafcillin needed less frequent administration, the patient went back to live on his own and he lives with a roommate. The roommate last saw the patient at 11 p.m. last night in normal condition and then the roommate saw him this morning and the patient was speaking gibberish and agitated and called an ambulance. He was brought in by ambulance and was somewhat interactive, but in the ER became more obtunded. In the ER, he also had a suspicion of a right gaze preference and also right arm less spontaneously mobile than his other three extremities and a workup for stroke was underway. He underwent a CTA of the head and neck, which showed no stroke and no significant occlusions. His other workup shows that he has rhabdomyolysis with a CK of 3699 and VELMA with a creatinine of 1.4. He remains somnolent, but awakens to pain with sternal rub. The patient is being admitted to the hospital service, inpatient status for managing rhabdomyolysis, VELMA and altered mental status. PAST MEDICAL HISTORY 1. Methamphetamine abuse for years. 2. Clostridium difficile diarrhea six months ago. 3. Osteomyelitis of the spine, treated elsewhere and was getting PICC line treatments of cefazolin, which were changed to nafcillin three days ago. 4. Hypertension. 5. COPD. 6. Depression. 7. BPH. ALLERGIES: NONE. MEDICATIONS: Only nafcillin IV. SOCIAL HISTORY: He smokes cigarettes and also uses methamphetamine and marijuana. He lives with a friend normally. FAMILY HISTORY: Cancer in his brother. REVIEW OF SYSTEMS: This was obtained only from chart review and reports from the ER doctor since the patient is somnolent and gives no history. From the six month ago admission, he used to be on Prozac, Tramadol, metoprolol and amlodipine for blood pressure, magnesium and a multivitamin, Spiriva and Ventolin inhalers. A comprehensive review of systems was performed with the above method, the pertinent positives are listed, the rest are negative. PHYSICAL EXAM GENERAL: Thin, cachectic white male who is disheveled and somnolent. VITAL SIGNS: Blood pressure 192/109, heart rate 76 in sinus rhythm, afebrile, room air saturation 80%. HEENT: Reveals disheveled appearance, dry oral mucosa and edentulous. NECK: Without JVD. LUNGS: Clear. HEART: Normal heart sounds without murmur. ABDOMEN: Thin, scaphoid. No guarding or rebound. EXTREMITIES: No clubbing, cyanosis or edema. NEUROLOGIC: Obtunded, awakens spomntaneously, looks around, does not follow commands, moving all exrtremities spontaneously, but the righjt arm less. LABORATORY DATA: Sodium 140, potassium 3.5, anion gap 14, BUN 19, creatinine 1.4, glucose 130. Lactic acid 1.9, AST 48, ALT 18. Creatinine kinase 3699. Troponin 36. Lipase 30. White blood count 3.8, hemoglobin 12.3 with a normal MCV, platelet count normal at 344. INR mildly elevated at 1.3. Venous blood gas showed pH of 7.37. No urinalysis is available yet. COVID by [employer] is negative for COVID. Toxicology screen shows positive for amphetamine and methamphetamine and no alcohol present, no acetaminophen and no salicylates. IMAGING: CTA of the head and neck showed no acute findings and no hemorrhage intracranially. There is also no high-grade stenosis in the central intracranial arteries or the head and neck arteries. EKG: Normal sinus rhythm, unremarkable. IMPRESSION/DIAGNOSES 1. Altered mental status. This appears most likely to be from coming down off of a meth high with the current hypersomnolence. There is still concern that he might have right arm weakness and an MRI will be planned. 2. Rhabdomyolysis. 3. Acute kidney injury. 4. Methamphetamine abuse. 5. Elevated troponin. 6. Leukopenia. 7. Anemia. 8. Osteomyelitis of the spine, still on IV antibiotics. 9. Acute urinary retention, which happened in the ER when a bladder scan showed over a liter of urine and Elizondo has been inserted. 10. Benign prostatic hypertrophy. 11. Depression. 12. Chronic obstructive pulmonary disease without exacerbation. 13. Hypertension, uncontrolled. PLAN: Admit the patient to Inpatient status on the hospitalist service. Order neuro checks regarding the altered mental status. Obtain a brain MRI for definitive evaluation for acute stroke. Begin IV fluids to manage the rhabdomyolysis and VELMA. Cycle his troponins. Follow his CBC, as he may need transfusion if hemoglobin under 7, and we will check B12 levels, folate levels and iron stores and replace if low. Continue with his nafcillin treatment, assure what dose he was getting. Continue with his Elizondo catheter until he is more awake to remove it and resume medication for BPH. We will also then resume medication for depression and p.r.n. inhalers. We will start IV treatment for his hypertension that is uncontrolled using hydralazine IV and beta blockers IV. CODE STATUS: FULL CODE. DEEP VENOUS THROMBOSIS PROPHYLAXIS: SCDs. ATTESTATION: Patient is expected to be discharged or transferred to another facility within 96 hours: Yes. cc: Ben Wagner MD TD: 08/18/2020 22:37 MTDD
[2020-08-19] MEDS: FAMOTIDINE 20 MG/2 ML VIAL IVP SCH ×3 (00:24→21:33)
[2020-08-19] MEDS: SODIUM CHLORIDE FLUSH 0.9% 10 ML SYRINGE IVP SCH ×3 (00:25→16:08)
[2020-08-19] MEDS: DEXTROSE 5%-0.9% NACL 1,000 ML IV SCH ×3 (01:43→21:45)
[2020-08-19 06:02] LABS: HGB - HEMOGLOBIN 11.7 g/dL (14.0-18.0); LYMPHOCYTES # (AUTO) 0.7 10^3/uL (1.5-3.5); LYMPHOCYTES % (AUTO) 21.1 %; MEAN CORPUSCULAR VOLUME 90.6 fL (80.0-94.0); MEAN PLATELET VOLUME 8.2 fL (7.4-11.4); MONOCYTES # (AUTO) 0.9 10^3/uL (0.0-1.0); MONOCYTES % (AUTO) 26.3 %; NEUTROPHILS # (AUTO) 1.7 10^3/uL (1.5-6.6); NEUTROPHILS % (AUTO) 52.3 %; PLT - PLATELET COUNT 347 10^3/uL (130-450); RED BLOOD COUNT 4.04 10^6/uL (4.70-6.10); RED CELL DISTRIBUTION WIDTH 14.1 % (12.0-15.0); WHITE BLOOD COUNT 3.2 x10^3/uL (4.8-10.8)
[2020-08-19 06:12] LABS: ALBUMIN 3.4 g/dL (3.2-5.5); ALBUMIN/GLOBULIN RATIO 0.9 (1.0-2.2); BILIRUBIN,TOTAL 0.7 mg/dL (0.2-1.0); CALCIUM 8.2 mg/dL (8.5-10.3); CREATININE 1.2 mg/dL (0.6-1.2); PHOSPHORUS 2.8 mg/dL (2.5-4.6)
--- NOTE | 2020-08-19 08:37 | PROVIDER PROGRESS NOTE ---
Subjective - Prog Note Date Prog Note Date: 08/19/20 - Subjective Subjective: He is unable to tell me where he is or why he is here. He keeps mumbling I do not know whenever asked a question. Current Medications - Current Medications Current Medications: Active Medications Albuterol (Albuterol 1 Puff) 2 puffs INH Q4H PRN PRN Reason: Wheezing Famotidine (Famotidine 20 Mg/2 Ml Vial) 20 mg IVP BID [facility] Last Admin: 08/19/20 09:50 Dose: 20 mg Documented by: Hydralazine HCl (Hydralazine Inj 20 Mg/Ml Vial) 10 mg IVP BID [facility] Last Admin: 08/19/20 09:51 Dose: 10 mg Documented by: Dextrose/Sodium Chloride (D5ns) 1,000 mls @ 100 mls/hr IV .Q10H [facility] Last Admin: 08/19/20 11:34 Dose: 100 mls/hr Documented by: Nafcillin Sodium 2 gm/ Sodium (Chloride) 100 mls @ 100 mls/hr IV 0400,1000,1600,2200 [facility] Last Admin: 08/19/20 16:08 Dose: 100 mls/hr Documented by: Metoprolol Tartrate (Metoprolol 5 Mg/5 Ml Vial) 2.5 mg IVP Q8H [facility] Last Admin: 08/19/20 14:37 Dose: 2.5 mg Documented by: Ondansetron HCl (Ondansetron 4 Mg/2 Ml Vial) 4 mg IVP Q6HR PRN PRN Reason: Nausea / Vomiting Sodium Chloride (Sodium Chloride Flush 0.9% 10 Ml Syringe) 10 ml IVP PRN PRN PRN Reason: NEEDED PER PROVIDER ORDERS Sodium Chloride (Sodium Chloride Flush 0.9% 10 Ml Syringe) 10 ml IVP 0100,0900,1700 [facility] Last Admin: 08/19/20 16:08 Dose: 10 ml Documented by: Albuterol Sulf [Ventolin Hfa Inhaler] 2 puffs INH QID 06/20/18 Metoprolol Succinate 25 mg PO DAILY 06/20/18 FLUoxetine [PROzac] 20 mg PO DAILY 01/04/19 Cyclobenzaprine [Flexeril] 10 mg PO TID PRN 01/08/20 Gabapentin [Neurontin] 300 mg PO TID 01/08/20 Umeclidinium Brm/Vilanterol Tr [Anoro Ellipta 62.5-25 Mcg INH] 1 puffs INH DAILY 01/08/20 Umeclidinium [place] [Incruse Ellipta] 1 puffs INH DAILY 01/08/20 Objective - Vital Signs/Intake & Output Reviewed Vital Signs: Yes Vital Signs: Vital Signs x48h Temp Pulse Resp BP BP Pulse Ox 08/19/20 07:46 37.9 C 66 16 147/92 H 99 08/19/20 05:42 76 149/91 H 08/19/20 05:37 80 149/93 H 08/19/20 05:32 90 151/100 H 08/19/20 04:02 91 149/92 H 08/19/20 01:46 81 147/96 H 100 08/19/20 01:16 82 162/93 H 08/19/20 01:01 77 146/97 H 08/19/20 00:46 65 170/85 H Intake & Output: Intake & Output 08/16/20 08/17/20 08/18/20 08/19/20 23:59 23:59 23:59 23:59 Intake Total 1100 1000 Output Total 1900 1250 Balance -800 -250 - Objective General Appearance: positive: Alert. negative: Lethargic Eyes Bilateral: positive: Normal inspection, PERRL, Conjunctivae nml ENT: positive: ENT inspection nml Neck: positive: Nml inspection. negative: Stiff neck Respiratory: positive: No respiratory distress. negative: Wheezes, Rales Cardiovascular: positive: Regular rate & rhythm, No murmur. negative: Tachycardia Abdomen: positive: Non-tender, No distention. negative: Tenderness Skin: positive: Warm, Dry Extremities: positive: No pedal edema Neurologic/Psychiatric: positive: Other (He does not appear to have any focal deficits. He is moving all 4 extremities. He attempts to answer questions when spoken to but keeps repeating "I do not know.") - Lab Results Fish Bones: 08/19/20 05:33 08/19/20 05:33 Other Labs: Lab Results x24hrs 08/19/20 08/19/20 08/19/20 Range/Units 05:33 05:33 05:33 WBC 3.2 L (4.8-10.8) x10^3/uL RBC 4.04 L (4.70-6.10) 10^6/uL Hgb 11.7 L (14.0-18.0) g/dL Hct 36.6 L (42.0-52.0) % MCV 90.6 (80.0-94.0) fL MCH 29.0 (27.0-31.0) pg MCHC 32.0 (32.0-36.0) g/dL RDW 14.1 (12.0-15.0) % Plt Count 347 (130-450) 10^3/uL MPV 8.2 (7.4-11.4) fL Neut # (Auto) 1.7 (1.5-6.6) 10^3/uL Lymph # (Auto) 0.7 L (1.5-3.5) 10^3/uL [place] # (Auto) 0.9 (0.0-1.0) 10^3/uL Eos # (Auto) 0.0 (0.0-0.7) 10^3/uL Baso # (Auto) 0.0 (0.0-0.1) 10^3/uL Absolute Nucleated RBC 0.00 x10^3/uL Nucleated RBC % 0.0 /100WBC PT (9.9-12.6) secs INR (0.8-1.2) VBG pH (7.31-7.41) VBG pCO2 (41-51) mmHg VBG pO2 (25-47) mmHg VBG HCO3 (23-28) mmol/L VBG Total CO2 (24-29) mmol/L VBG O2 Saturation (60-80) % VBG Base Excess (-2 - +2) mmol/L Sodium 139 (135-145) mmol/L Potassium 3.1 L (3.5-5.0) mmol/L Chloride 109 (101-111) mmol/L Carbon Dioxide 22 (21-32) mmol/L Anion Gap 8.0 (6-13) BUN 18 (6-20) mg/dL Creatinine 1.2 (0.6-1.2) mg/dL Estimated GFR (MDRD) 61 L (>89) Glucose 133 H (70-100) mg/dL Lactic Acid (0.5-2.2) mmol/L Calcium 8.2 L (8.5-10.3) mg/dL Phosphorus 2.8 (2.5-4.6) mg/dL Magnesium 2.0 (1.7-2.8) mg/dL Total Bilirubin 0.7 (0.2-1.0) mg/dL AST 59 H (10-42) IU/L ALT 11 (10-60) IU/L Alkaline Phosphatase 64 (42-121) IU/L Total Creatine Kinase (22-269) IU/L Troponin I High Sens (2.3-19.7) ng/L Total Protein 7.0 (6.7-8.2) g/dL Albumin 3.4 (3.2-5.5) g/dL Globulin 3.6 (2.1-4.2) g/dL Albumin/Globulin Ratio 0.9 L (1.0-2.2) Lipase (22-51) U/L Vitamin B12 351 (180-914) pg/mL Folate 28.00 (5.90 - >24.8) ng/mL Nasal Adenovirus (PCR) Nasal B. parapertussis DNA (PCR) Nasal Coronavir 229E PCR Nasal Coronavir HKU1 PCR Nasal Coronavir NL63 PCR Nasal Coronavir OC43 PCR Nasal Enterovir/Rhinovir PCR Nasal Influenza B PCR Nasal Influenza A PCR Nasal Parainfluen 1 PCR Nasal Parainfluen 2 PCR Nasal Parainfluen 3 PCR Nasal Parainfluen 4 PCR Nasal RSV (PCR) Nasal B.pertussis DNA PCR Nasal C.pneumoniae (PCR) [place] Human Metapneumo PCR Nasal M.pneumoniae (PCR) Nasal SARS-CoV-2 (PCR) Salicylates mg/dL Urine Opiates Screen (NEGATIVE) Ur Oxycodone Screen (NEGATIVE) Urine Methadone Screen (NEGATIVE) Ur Propoxyphene Screen (NEGATIVE) Acetaminophen (10-30) ug/mL Ur Barbiturates Screen (NEGATIVE) Ur Tricyclics Screen (NEGATIVE) Ur Phencyclidine Scrn (NEGATIVE) Ur Amphetamine Screen (NEGATIVE) U Methamphetamines Scrn (NEGATIVE) U Benzodiazepines Scrn (NEGATIVE) Urine Cocaine Screen (NEGATIVE) U Cannabinoids Screen (NEGATIVE) Ethyl Alcohol mg/dL 08/18/20 08/18/20 08/18/20 Range/Units 23:43 21:20 20:25 WBC (4.8-10.8) x10^3/uL RBC (4.70-6.10) 10^6/uL Hgb (14.0-18.0) g/dL Hct (42.0-52.0) % MCV (80.0-94.0) fL MCH (27.0-31.0) pg MCHC (32.0-36.0) g/dL RDW (12.0-15.0) % Plt Count (130-450) 10^3/uL MPV (7.4-11.4) fL Neut # (Auto) (1.5-6.6) 10^3/uL Lymph # (Auto) (1.5-3.5) 10^3/uL [place] # (Auto) (0.0-1.0) 10^3/uL Eos # (Auto) (0.0-0.7) 10^3/uL Baso # (Auto) (0.0-0.1) 10^3/uL Absolute Nucleated RBC x10^3/uL Nucleated RBC % /100WBC PT (9.9-12.6) secs INR (0.8-1.2) VBG pH (7.31-7.41) VBG pCO2 (41-51) mmHg VBG pO2 (25-47) mmHg VBG HCO3 (23-28) mmol/L VBG Total CO2 (24-29) mmol/L VBG O2 Saturation (60-80) % VBG Base Excess (-2 - +2) mmol/L Sodium (135-145) mmol/L Potassium (3.5-5.0) mmol/L Chloride (101-111) mmol/L Carbon Dioxide (21-32) mmol/L Anion Gap (6-13) BUN (6-20) mg/dL Creatinine (0.6-1.2) mg/dL Estimated GFR (MDRD) (>89) Glucose (70-100) mg/dL Lactic Acid (0.5-2.2) mmol/L Calcium (8.5-10.3) mg/dL Phosphorus (2.5-4.6) mg/dL Magnesium (1.7-2.8) mg/dL Total Bilirubin (0.2-1.0) mg/dL AST (10-42) IU/L ALT (10-60) IU/L Alkaline Phosphatase (42-121) IU/L Total Creatine Kinase (22-269) IU/L Troponin I High Sens 41.7 H* (2.3-19.7) ng/L Total Protein (6.7-8.2) g/dL Albumin (3.2-5.5) g/dL Globulin (2.1-4.2) g/dL Albumin/Globulin Ratio (1.0-2.2) Lipase (22-51) U/L Vitamin B12 (180-914) pg/mL Folate (5.90 - >24.8) ng/mL Nasal Adenovirus (PCR) NOT DETECTED Nasal B. parapertussis DNA (PCR) NOT DETECTED Nasal Coronavir 229E PCR NOT DETECTED Nasal Coronavir HKU1 PCR NOT DETECTED Nasal Coronavir NL63 PCR NOT DETECTED Nasal Coronavir OC43 PCR NOT DETECTED Nasal Enterovir/Rhinovir PCR NOT DETECTED Nasal Influenza B PCR NOT DETECTED Nasal Influenza A PCR NOT DETECTED Nasal Parainfluen 1 PCR NOT DETECTED Nasal Parainfluen 2 PCR NOT DETECTED Nasal Parainfluen 3 PCR NOT DETECTED Nasal Parainfluen 4 PCR NOT DETECTED Nasal RSV (PCR) NOT DETECTED Nasal B.pertussis DNA PCR NOT DETECTED Nasal C.pneumoniae (PCR) NOT DETECTED [place] Human Metapneumo PCR NOT DETECTED Nasal M.pneumoniae (PCR) NOT DETECTED Nasal SARS-CoV-2 (PCR) NOT DETECTED Salicylates mg/dL Urine Opiates Screen NEGATIVE (NEGATIVE) Ur Oxycodone Screen NEGATIVE (NEGATIVE) Urine Methadone Screen NEGATIVE (NEGATIVE) Ur Propoxyphene Screen NEGATIVE (NEGATIVE) Acetaminophen (10-30) ug/mL Ur Barbiturates Screen NEGATIVE (NEGATIVE) Ur Tricyclics Screen NEGATIVE (NEGATIVE) Ur Phencyclidine Scrn NEGATIVE (NEGATIVE) Ur Amphetamine Screen POSITIVE H (NEGATIVE) U Methamphetamines Scrn POSITIVE H (NEGATIVE) U Benzodiazepines Scrn NEGATIVE (NEGATIVE) Urine Cocaine Screen NEGATIVE (NEGATIVE) U Cannabinoids Screen NEGATIVE (NEGATIVE) Ethyl Alcohol mg/dL 08/18/20 08/18/20 08/18/20 Range/Units 20:20 20:20 20:20 WBC (4.8-10.8) x10^3/uL RBC (4.70-6.10) 10^6/uL Hgb (14.0-18.0) g/dL Hct (42.0-52.0) % MCV (80.0-94.0) fL MCH (27.0-31.0) pg MCHC (32.0-36.0) g/dL RDW (12.0-15.0) % Plt Count (130-450) 10^3/uL MPV (7.4-11.4) fL Neut # (Auto) (1.5-6.6) 10^3/uL Lymph # (Auto) (1.5-3.5) 10^3/uL [place] # (Auto) (0.0-1.0) 10^3/uL Eos # (Auto) (0.0-0.7) 10^3/uL Baso # (Auto) (0.0-0.1) 10^3/uL Absolute Nucleated RBC x10^3/uL Nucleated RBC % /100WBC PT (9.9-12.6) secs INR (0.8-1.2) VBG pH 7.374 (7.31-7.41) VBG pCO2 38.8 L (41-51) mmHg VBG pO2 26.9 (25-47) mmHg VBG HCO3 22.1 L (23-28) mmol/L VBG Total CO2 23.3 L (24-29) mmol/L VBG O2 Saturation 55.7 L (60-80) % VBG Base Excess -2.7 L (-2 - +2) mmol/L Sodium (135-145) mmol/L Potassium (3.5-5.0) mmol/L Chloride (101-111) mmol/L Carbon Dioxide (21-32) mmol/L Anion Gap (6-13) BUN (6-20) mg/dL Creatinine (0.6-1.2) mg/dL Estimated GFR (MDRD) (>89) Glucose (70-100) mg/dL Lactic Acid 1.9 (0.5-2.2) mmol/L Calcium (8.5-10.3) mg/dL Phosphorus (2.5-4.6) mg/dL Magnesium (1.7-2.8) mg/dL Total Bilirubin (0.2-1.0) mg/dL AST (10-42) IU/L ALT (10-60) IU/L Alkaline Phosphatase (42-121) IU/L Total Creatine Kinase (22-269) IU/L Troponin I High Sens 36.8 H* (2.3-19.7) ng/L Total Protein (6.7-8.2) g/dL Albumin (3.2-5.5) g/dL Globulin (2.1-4.2) g/dL Albumin/Globulin Ratio (1.0-2.2) Lipase (22-51) U/L Vitamin B12 (180-914) pg/mL Folate (5.90 - >24.8) ng/mL Nasal Adenovirus (PCR) Nasal B. parapertussis DNA (PCR) Nasal Coronavir 229E PCR Nasal Coronavir HKU1 PCR Nasal Coronavir NL63 PCR Nasal Coronavir OC43 PCR Nasal Enterovir/Rhinovir PCR Nasal Influenza B PCR Nasal Influenza A PCR Nasal Parainfluen 1 PCR Nasal Parainfluen 2 PCR Nasal Parainfluen 3 PCR Nasal Parainfluen 4 PCR Nasal RSV (PCR) Nasal B.pertussis DNA PCR Nasal C.pneumoniae (PCR) [place] Human Metapneumo PCR Nasal M.pneumoniae (PCR) Nasal SARS-CoV-2 (PCR) Salicylates mg/dL Urine Opiates Screen (NEGATIVE) Ur Oxycodone Screen (NEGATIVE) Urine Methadone Screen (NEGATIVE) Ur Propoxyphene Screen (NEGATIVE) Acetaminophen (10-30) ug/mL Ur Barbiturates Screen (NEGATIVE) Ur Tricyclics Screen (NEGATIVE) Ur Phencyclidine Scrn (NEGATIVE) Ur Amphetamine Screen (NEGATIVE) U Methamphetamines Scrn (NEGATIVE) U Benzodiazepines Scrn (NEGATIVE) Urine Cocaine Screen (NEGATIVE) U Cannabinoids Screen (NEGATIVE) Ethyl Alcohol mg/dL 08/18/20 08/18/20 08/18/20 Range/Units 20:20 20:20 20:20 WBC 3.8 L (4.8-10.8) x10^3/uL RBC 4.29 L (4.70-6.10) 10^6/uL Hgb 12.3 L (14.0-18.0) g/dL Hct 39.3 L (42.0-52.0) % MCV 91.6 (80.0-94.0) fL MCH 28.7 (27.0-31.0) pg MCHC 31.3 L (32.0-36.0) g/dL RDW 14.1 (12.0-15.0) % Plt Count 344 (130-450) 10^3/uL MPV 8.0 (7.4-11.4) fL Neut # (Auto) 2.4 (1.5-6.6) 10^3/uL Lymph # (Auto) 0.6 L (1.5-3.5) 10^3/uL [place] # (Auto) 0.8 (0.0-1.0) 10^3/uL Eos # (Auto) 0.0 (0.0-0.7) 10^3/uL Baso # (Auto) 0.0 (0.0-0.1) 10^3/uL Absolute Nucleated RBC 0.00 x10^3/uL Nucleated RBC % 0.0 /100WBC PT 14.0 H (9.9-12.6) secs INR 1.3 H (0.8-1.2) VBG pH (7.31-7.41) VBG pCO2 (41-51) mmHg VBG pO2 (25-47) mmHg VBG HCO3 (23-28) mmol/L VBG Total CO2 (24-29) mmol/L VBG O2 Saturation (60-80) % VBG Base Excess (-2 - +2) mmol/L Sodium 140 (135-145) mmol/L Potassium 3.5 (3.5-5.0) mmol/L Chloride 100 L (101-111) mmol/L Carbon Dioxide 26 (21-32) mmol/L Anion Gap 14.0 H (6-13) BUN 19 (6-20) mg/dL Creatinine 1.4 H (0.6-1.2) mg/dL Estimated GFR (MDRD) 51 L (>89) Glucose 130 H (70-100) mg/dL Lactic Acid (0.5-2.2) mmol/L Calcium 9.2 (8.5-10.3) mg/dL Phosphorus (2.5-4.6) mg/dL Magnesium 2.5 (1.7-2.8) mg/dL Total Bilirubin 0.9 (0.2-1.0) mg/dL AST 48 H (10-42) IU/L ALT 11 (10-60) IU/L Alkaline Phosphatase 74 (42-121) IU/L Total Creatine Kinase 3699 H* (22-269) IU/L Troponin I High Sens (2.3-19.7) ng/L Total Protein 8.3 H (6.7-8.2) g/dL Albumin 3.9 (3.2-5.5) g/dL Globulin 4.4 H (2.1-4.2) g/dL Albumin/Globulin Ratio 0.9 L (1.0-2.2) Lipase 30 (22-51) U/L Vitamin B12 (180-914) pg/mL Folate (5.90 - >24.8) ng/mL Nasal Adenovirus (PCR) Nasal B. parapertussis DNA (PCR) Nasal Coronavir 229E PCR Nasal Coronavir HKU1 PCR Nasal Coronavir NL63 PCR Nasal Coronavir OC43 PCR Nasal Enterovir/Rhinovir PCR Nasal Influenza B PCR Nasal Influenza A PCR Nasal Parainfluen 1 PCR Nasal Parainfluen 2 PCR Nasal Parainfluen 3 PCR Nasal Parainfluen 4 PCR Nasal RSV (PCR) Nasal B.pertussis DNA PCR Nasal C.pneumoniae (PCR) [place] Human Metapneumo PCR Nasal M.pneumoniae (PCR) Nasal SARS-CoV-2 (PCR) Salicylates < 6.0 mg/dL Urine Opiates Screen (NEGATIVE) Ur Oxycodone Screen (NEGATIVE) Urine Methadone Screen (NEGATIVE) Ur Propoxyphene Screen (NEGATIVE) Acetaminophen < 10 L (10-30) ug/mL Ur Barbiturates Screen (NEGATIVE) Ur Tricyclics Screen (NEGATIVE) Ur Phencyclidine Scrn (NEGATIVE) Ur Amphetamine Screen (NEGATIVE) U Methamphetamines Scrn (NEGATIVE) U Benzodiazepines Scrn (NEGATIVE) Urine Cocaine Screen (NEGATIVE) U Cannabinoids Screen (NEGATIVE) Ethyl Alcohol < 5.0 mg/dL ABX Reporting Has patient been on IV antibiotics over the past 48 hours?: Yes Assessment/Plan - Problem List (1) Altered mental status Impression: He remains altered although he is more awake. He is able to speak although he keeps repeating the same sentence. He does not have any obvious focal deficits on exam. I suspect this may be due to his drug use. MRI has been ordered and is pending. There is no obvious source of infection at this time except for the osteomyelitis which he remains on IV nafcillin. We will check an ammonia level in the morning if he remains altered. Avoid sedatives. Low suspicion for meningitis at this time but will consider a lumbar puncture if necessary. Qualifiers: Altered mental status type: delirium Qualified Code(s): R41.0 - Disorientation, unspecified (2) Rhabdomyolysis Impression: This is likely due to his methamphetamine use. His CKs were elevated at 3700 and he had mild acute kidney injury. AST is also slightly elevated. We will continue with IV hydration. Recheck CKs in the morning. Continue to trend. (3) Stroke-like symptoms Impression: There was reportedly concern for strokelike symptoms in the emergency department as he had a left gaze preference and did not respond to painful stimuli in the right upper extremity. CTA of the head and neck were unremarkable. MRI has been ordered and pending. Currently does not appear to have any focal deficits on exam. I do not believe his altered status would be explained by a stroke but nonetheless, we will obtain MRI. (4) Osteomyelitis of spine Impression: He has a history of osteomyelitis of the spine. He is reportedly on nafcillin IV which we have continued. I have requested records from [facility] as well as his outpatient infectious disease specialist to see what treatment he is exactly on and how longer he needs antibiotics for. (5) Methamphetamine abuse Impression: His urine toxicology is positive for methamphetamines. We will discussed the importance of abstinence from drug use once he is able to participate in a conversation. (6) Urinary retention Impression: He had urinary retention in the emergency department with nearly 1 L of urine in his bladder. [place]iz[place] catheter has since been placed. We will resume his home Flomax. We will check a urinalysis to rule out infection. We will attempt a voiding trial when his mentation improves. (7) COPD (chronic obstructive pulmonary disease) Impression: Stable and not in exacerbation. Continue with albuterol as needed. (8) VELMA (acute kidney injury) Impression: This was likely prerenal in injury. His renal function has improved and is back to baseline.
[2020-08-19] MEDS ORDERED: POTASSIUM CHLORIDE 20 MEQ TABLET PO ONE (08:39)
[2020-08-19] MEDS ORDERED: NAFCILLIN 2 GM in SODIUM CHLORIDE 0.9% MINIBAG 100 ML IV SCH ×2 (09:00→10:22)
[2020-08-19] MEDS: hydrALAZINE INJ 20 MG/ML VIAL IVP SCH ×2 (09:51→21:22)
[2020-08-19] MEDS: METOPROLOL 5 MG/5 ML VIAL IVP SCH ×2 (14:37→21:20)
[2020-08-19] MEDS: NAFCILLIN 2 GM in SODIUM CHLORIDE 0.9% MINIBAG 100 ML IV SCH ×2 (16:08→21:47)
[2020-08-19 19:19] LABS: BILIRUBIN,URINE NEGATIVE (NEGATIVE); GLUCOSE, URINE (UA) NEGATIVE (NEGATIVE); KETONES,URINE (UA) NEGATIVE (NEGATIVE); LEUKOCYTE ESTERASE, URINE NEGATIVE (NEGATIVE); NITRITE,URINE NEGATIVE (NEGATIVE); OCCULT BLOOD,URINE MODERATE (NEGATIVE); PROTEIN,URINE 30 mg/dL (NEGATIVE); UROBILINOGEN,URINE 0.2 (NORMAL) E.U./dL (NORMAL)
[2020-08-19 19:28] LABS: CLARITY,URINE CLEAR (CLEAR)
[2020-08-19 19:39] LABS: BACTERIA,URINE Few /HPF (None Seen); SQUAMOUS EPITHELIAL CELL,UR NONE SEEN (<= Few)
[2020-08-19 19:40] LABS: MUCUS,URINE Moderate Strands; OVAL FAT BODIES,URINE FEW /HPF
[2020-08-20] MEDS: SODIUM CHLORIDE FLUSH 0.9% 10 ML SYRINGE IVP SCH ×3 (00:07→18:33)
[2020-08-20] MEDS: NAFCILLIN 2 GM in SODIUM CHLORIDE 0.9% MINIBAG 100 ML IV SCH ×5 (04:06→23:52)
[2020-08-20 05:36] LABS: HGB - HEMOGLOBIN 10.5 g/dL (14.0-18.0); LYMPHOCYTES % (AUTO) 38.8 %; MEAN CORPUSCULAR HEMOGLOBIN 28.9 pg (27.0-31.0); MEAN CORPUSCULAR HGB CONC 30.9 g/dL (32.0-36.0); MEAN CORPUSCULAR VOLUME 93.7 fL (80.0-94.0); MEAN PLATELET VOLUME 8.2 fL (7.4-11.4); MONOCYTES % (AUTO) 26.3 %; NEUTROPHILS % (AUTO) 34.5 %; PLT - PLATELET COUNT 272 10^3/uL (130-450); RED BLOOD COUNT 3.63 10^6/uL (4.70-6.10); RED CELL DISTRIBUTION WIDTH 14.6 % (12.0-15.0); WHITE BLOOD COUNT 2.6 x10^3/uL (4.8-10.8)
[2020-08-20 05:46] LABS: ABNORMAL LYMPHS % (MANUAL) 0 %
[2020-08-20] MEDS: METOPROLOL 5 MG/5 ML VIAL IVP SCH (05:47)
[2020-08-20 06:02] LABS: % IRON SATURATION 18 % (20-50); ALBUMIN 2.9 g/dL (3.2-5.5); ALBUMIN/GLOBULIN RATIO 0.9 (1.0-2.2); ALKALINE PHOSPHATASE 50 IU/L (42-121); ALT ALANINE AMINOTRANSFERASE < 10 IU/L (10-60); AST ASPARTATE AMINOTRANSFERASE 54 IU/L (10-42); BILIRUBIN,TOTAL 0.8 mg/dL (0.2-1.0); BUN - BLOOD UREA NITROGEN 14 mg/dL (6-20); CALCIUM 8.2 mg/dL (8.5-10.3); CARBON DIOXIDE - CO2 22 mmol/L (21-32); CHLORIDE 113 mmol/L (101-111); CREATININE 1.1 mg/dL (0.6-1.2); GLUCOSE 113 mg/dL (70-100); IRON 51 ug/dL (45-182); TOTAL IRON BINDING CAPACITY 276 ug/dL (250-450); TOTAL PROTEIN 6.1 g/dL (6.7-8.2); TRANSFERRIN 197 mg/dL (180-329)
[2020-08-20 06:04] LABS: CK- CREATINE KINASE 2654 IU/L (22-269)
[2020-08-20 06:09] LABS: BAND NEUTROPHILS % (MANUAL) 1 %; DIFFERENTIAL COMMENT MANUAL DIFFERENTIAL; LYMPHOCYTES # (MANUAL) 1.1 10^3/uL (1.5-3.5); LYMPHOCYTES % (MANUAL) 44 %; MONOCYTES # (MANUAL) 0.4 10^3/uL (0.0-1.0); PLATELET ESTIMATE, MANUAL NORMAL (130-450,000) (NORMAL); RBC MORPHOLOGY (MULTIPLE) NORMAL APPEARANCE (NORMAL)
[2020-08-20] MEDS: POTASSIUM CHLORIDE 20 MEQ TABLET PO SCH ×3 (06:56→21:44)
--- NOTE | 2020-08-20 07:33 | PROVIDER PROGRESS NOTE ---
Subjective - Prog Note Date Prog Note Date: 08/20/20 - Subjective Subjective: Morning he keeps stating that history can brought this very hot. He is unable to tell me his name or where he is. He keeps on repeating the same sentence, "this is very hot." Current Medications - Current Medications Current Medications: Active Medications Albuterol (Albuterol 1 Puff) 2 puffs INH Q4H PRN PRN Reason: Wheezing Lactated Ringer's (Lr) 1,000 mls @ 125 mls/hr IV .Q8H [facility] Last Infusion: 08/20/20 14:56 Dose: 0 mls/hr Documented by: Thiamine HCl 100 mg/ Sodium (Chloride) 51 mls @ 100 mls/hr IV DAILY [facility] Last Infusion: 08/20/20 10:38 Dose: Infused Documented by: Nafcillin Sodium 2 gm/ Sodium (Chloride) 100 mls @ 100 mls/hr IV Q4H [facility] Last Admin: 08/20/20 14:54 Dose: 100 mls/hr Documented by: Metoprolol Succinate (Metoprolol Succinate 25 Mg Tablet) 25 mg PO DAILY [facility] Last Admin: 08/20/20 13:44 Dose: 25 mg Documented by: Ondansetron HCl (Ondansetron 4 Mg/2 Ml Vial) 4 mg IVP Q6HR PRN PRN Reason: Nausea / Vomiting Potassium Chloride (Potassium Chloride 20 Meq Tablet) 40 meq PO TID [facility] Stop: 08/20/20 22:01 Last Admin: 08/20/20 13:44 Dose: 40 meq Documented by: Sodium Chloride (Sodium Chloride Flush 0.9% 10 Ml Syringe) 10 ml IVP PRN PRN PRN Reason: NEEDED PER PROVIDER ORDERS Last Admin: 08/20/20 14:31 Dose: 10 ml Documented by: Sodium Chloride (Sodium Chloride Flush 0.9% 10 Ml Syringe) 10 ml IVP 0100,0900,1700 [facility] Last Admin: 08/20/20 08:00 Dose: Not Given Documented by: Tamsulosin HCl (Tamsulosin 0.4 Mg Capsule) 0.4 mg PO DAILY [facility] Last Admin: 08/20/20 10:07 Dose: 0.4 mg Documented by: FLUoxetine [PROzac] 20 mg PO DAILY 01/04/19 Umeclidinium Brm/Vilanterol Tr [Anoro Ellipta 62.5-25 Mcg INH] 1 puffs INH DAILY 01/08/20 Umeclidinium [place] [Incruse Ellipta] 1 puffs INH DAILY 01/08/20 Lactobacillus Acidophilus [Probiotic Acidophilus] 1 tab PO DAILY 08/20/20 Objective - Vital Signs/Intake & Output Reviewed Vital Signs: Yes Vital Signs: Vital Signs x48h Pulse Resp BP BP 08/20/20 05:47 48 L 18 157/70 H 157/70 H Intake & Output: Intake & Output 08/17/20 08/18/20 08/19/20 08/20/20 23:59 23:59 23:59 23:59 Intake Total 1100 4793.333 250 Output Total 1900 1925 450 Balance -800 2868.333 -200 - Objective General Appearance: positive: No acute distress, Alert Eyes Bilateral: positive: Normal inspection, Conjunctivae nml ENT: positive: ENT inspection nml Neck: positive: Nml inspection. negative: Stiff neck Respiratory: positive: No respiratory distress. negative: Wheezes, Rales Cardiovascular: positive: Regular rate & rhythm, No murmur. negative: Tachycardia, Systolic murmur Abdomen: positive: Non-tender, No distention. negative: Tenderness Skin: positive: Warm, Dry Extremities: positive: No pedal edema Neurologic/Psychiatric: positive: Other (He is able to move all 4 extremities. No obvious facial droop. He keeps on repeating the same sentence. He is now oriented to self, location.) - Lab Results Fish Bones: 08/20/20 05:04 08/20/20 05:04 Other Labs: Lab Results x24hrs 08/20/20 08/20/20 08/20/20 Range/Units 05:04 05:04 05:04 WBC 2.6 L (4.8-10.8) x10^3/uL RBC 3.63 L (4.70-6.10) 10^6/uL Hgb 10.5 L (14.0-18.0) g/dL Hct 34.0 L (42.0-52.0) % MCV 93.7 (80.0-94.0) fL MCH 28.9 (27.0-31.0) pg MCHC 30.9 L (32.0-36.0) g/dL RDW 14.6 (12.0-15.0) % Plt Count 272 (130-450) 10^3/uL MPV 8.2 (7.4-11.4) fL Neut # (Auto) Not Reportable Lymph # (Auto) Not Reportable [place] # (Auto) Not Reportable Eos # (Auto) Not Reportable Baso # (Auto) Not Reportable Absolute Nucleated RBC Not Reportable Total Counted 100 Band Neuts % (Manual) 1 (0 - 10) % Abnorm Lymph % (Manual) 0 % Nucleated RBC % Not Reportable Neutrophils # (Manual) 1.1 L (1.5-6.6) 10^3/uL Lymphocytes # (Manual) 1.1 L (1.5-3.5) 10^3/uL Monocytes # (Manual) 0.4 (0.0-1.0) 10^3/uL Eosinophils # (Manual) 0.0 (0-0.7) 10^3/uL Basophils # (Manual) 0.0 (0-0.1) 10^3/uL Differential Comment MANUAL DIFFERENTIAL Platelet Estimate NORMAL (130-450,000) (NORMAL) RBC Morph Micro Appear NORMAL APPEARANCE (NORMAL) Sodium 141 (135-145) mmol/L Potassium 3.2 L (3.5-5.0) mmol/L Chloride 113 H (101-111) mmol/L Carbon Dioxide 22 (21-32) mmol/L Anion Gap 6.0 (6-13) BUN 14 (6-20) mg/dL Creatinine 1.1 (0.6-1.2) mg/dL Estimated GFR (MDRD) 67 L (>89) Glucose 113 H (70-100) mg/dL Calcium 8.2 L (8.5-10.3) mg/dL Iron 51 (45-182) ug/dL TIBC 276 (250-450) ug/dL % Saturation 18 L (20-50) % Transferrin 197 (180-329) mg/dL Total Bilirubin 0.8 (0.2-1.0) mg/dL AST 54 H (10-42) IU/L ALT < 10 L (10-60) IU/L Alkaline Phosphatase 50 (42-121) IU/L Ammonia 12.6 (7-35) umol/L Total Creatine Kinase 2654 H* (22-269) IU/L Total Protein 6.1 L (6.7-8.2) g/dL Albumin 2.9 L (3.2-5.5) g/dL Globulin 3.2 (2.1-4.2) g/dL Albumin/Globulin Ratio 0.9 L (1.0-2.2) Urine Color Urine Clarity (CLEAR) Urine pH (5.0-7.5) PH Ur Specific [place] (1.002-1.030) Urine Protein (NEGATIVE) mg/dL Urine Glucose (UA) (NEGATIVE) mg/dL Urine Ketones (NEGATIVE) mg/dL Urine Occult Blood (NEGATIVE) Urine Nitrite (NEGATIVE) Urine Bilirubin (NEGATIVE) Urine Urobilinogen (NORMAL) E.U./dL Ur Leukocyte Esterase (NEGATIVE) Urine RBC (0-5) /HPF Urine WBC (0-3) /HPF Ur Squamous Epith Cells (<= Few) Urine Bacteria (None Seen) /HPF Urine Mucus Ur Oval Fat Bodies /HPF 08/19/20 Range/Units 18:45 WBC (4.8-10.8) x10^3/uL RBC (4.70-6.10) 10^6/uL Hgb (14.0-18.0) g/dL Hct (42.0-52.0) % MCV (80.0-94.0) fL MCH (27.0-31.0) pg MCHC (32.0-36.0) g/dL RDW (12.0-15.0) % Plt Count (130-450) 10^3/uL MPV (7.4-11.4) fL Neut # (Auto) Lymph # (Auto) [place] # (Auto) Eos # (Auto) Baso # (Auto) Absolute Nucleated RBC Total Counted Band Neuts % (Manual) (0 - 10) % Abnorm Lymph % (Manual) % Nucleated RBC % Neutrophils # (Manual) (1.5-6.6) 10^3/uL Lymphocytes # (Manual) (1.5-3.5) 10^3/uL Monocytes # (Manual) (0.0-1.0) 10^3/uL Eosinophils # (Manual) (0-0.7) 10^3/uL Basophils # (Manual) (0-0.1) 10^3/uL Differential Comment Platelet Estimate (NORMAL) RBC Morph Micro Appear (NORMAL) Sodium (135-145) mmol/L Potassium (3.5-5.0) mmol/L Chloride (101-111) mmol/L Carbon Dioxide (21-32) mmol/L Anion Gap (6-13) BUN (6-20) mg/dL Creatinine (0.6-1.2) mg/dL Estimated GFR (MDRD) (>89) Glucose (70-100) mg/dL Calcium (8.5-10.3) mg/dL Iron (45-182) ug/dL TIBC (250-450) ug/dL % Saturation (20-50) % Transferrin (180-329) mg/dL Total Bilirubin (0.2-1.0) mg/dL AST (10-42) IU/L ALT (10-60) IU/L Alkaline Phosphatase (42-121) IU/L Ammonia (7-35) umol/L Total Creatine Kinase (22-269) IU/L Total Protein (6.7-8.2) g/dL Albumin (3.2-5.5) g/dL Globulin (2.1-4.2) g/dL Albumin/Globulin Ratio (1.0-2.2) Urine Color YELLOW Urine Clarity CLEAR (CLEAR) Urine pH 6.0 (5.0-7.5) PH Ur Specific [place] 1.025 (1.002-1.030) Urine Protein 30 H (NEGATIVE) mg/dL Urine Glucose (UA) NEGATIVE (NEGATIVE) mg/dL Urine Ketones NEGATIVE (NEGATIVE) mg/dL Urine Occult Blood MODERATE H (NEGATIVE) Urine Nitrite NEGATIVE (NEGATIVE) Urine Bilirubin NEGATIVE (NEGATIVE) Urine Urobilinogen 0.2 (NORMAL) (NORMAL) E.U./dL Ur Leukocyte Esterase NEGATIVE (NEGATIVE) Urine RBC 6-10 H (0-5) /HPF Urine WBC 6-10 H (0-3) /HPF Ur Squamous Epith Cells NONE SEEN (<= Few) Urine Bacteria Few (None Seen) /HPF Urine Mucus Moderate Strands Ur Oval Fat Bodies FEW /HPF ABX Reporting Has patient been on IV antibiotics over the past 48 hours?: Yes Assessment/Plan - Problem List (1) Altered mental status Impression: He is still quite delirious this morning. He is alert but keeps repeating the same answers when spoken to. He is unable to tell me his name, year or where he is at. I did speak with his son on the phone for over 15 minutes he does tell me that he has a history of dementia. This has been going on for a few years and his short-term memory loss is quite compromised. He states that this is not his father's baseline though and he normally is able to communicate him but has been a conversation. There was concern for stroke initially but he does not have any focal deficits on exam. MRI will be obtained today. Ammonia level was normal. He has no nuchal rigidity or fever to suggest meningitis. I suspect that if his altered mental status was related to his methamphetamine that he would have improved by now. His son tells me he has no recent history of alcohol use. I do wonder if his methamphetamine could have been laced. At this time, we will obtain MRI of the brain and follow this up. If there is still no improvement by tomorrow then we will need to consider a lumbar puncture. Continue to avoid sedatives. Qualifiers: Altered mental status type: delirium Qualified Code(s): R41.0 - Disorientation, unspecified (2) Stroke-like symptoms Impression: There was concern initially for strokelike symptoms although he currently has no focal deficits. I do not believe a stroke would explain his delirium although it will need to be ruled out. We will follow up with the MRI of the brain today. (3) Rhabdomyolysis Impression: CKs been elevated but are improving. Continue to hydrate him with IV lactated Ringer's. Daily CKs. (4) Osteomyelitis of spine Impression: He is on nafcillin for osteomyelitis of the thoracic spine. His son tells me that he was scheduled to complete another 6 weeks of antibiotics per the infectious disease specialist. I have requested records from Dr. Brock infectious disease at [facility] in [place]. We will continue the patient on nafcillin for the time being. (5) Methamphetamine abuse Impression: His urine toxicology was positive for methamphetamines. Discussed with the patient once he is able to participate in a confusion regarding the importance of refraining from drug use. (6) Urinary retention Impression: He had urinary retention in the emergency department and a Elizondo catheter was placed with 1 L of urine output. We have resumed his Flomax. We will keep the Elizondo in place for the time being given his altered mental status. (7) Dementia Impression: His son tells me he does have dementia and he has significant short-term memory problems. He has been on IV antibiotics for osteomyelitis of the thoracic spine but the patient believes it is for his stomach. He is currently quite altered and this is not his baseline. We will continue to treat his underlying altered mental status as mentioned above. (8) COPD (chronic obstructive pulmonary disease) Impression: Stable and not in exacerbation. Continue albuterol as needed. (9) VELMA (acute kidney injury) Impression: This has resolved.
[2020-08-20] MEDS: LACTATED RINGERS 1,000 ML IV SCH ×2 (07:59→19:37)
[2020-08-20] MEDS ORDERED: POTASSIUM CHLOR 10 MEQ/100 ML 10 MEQ/100 ML BAG IV SCH (08:00)
[2020-08-20] MEDS: TAMSULOSIN 0.4 MG CAPSULE PO SCH (10:07)
[2020-08-20] MEDS: THIAMINE INJ 100 MG in SODIUM CHLORIDE 0.9% 50 ML IV SCH (10:07)
--- NOTE | 2020-08-20 12:42 | PHARMACY PROGRESS NOTE ---
- Best Possible Medication History Admit Date and Time: 08/18/20 9504 Processed by: Pharmacy Medication History completed: Yes Patient Interview: Pt unable to participate (PATIENT'S CAREGIVER (LUIS, SON) CALLED TO CONFIRM HOME MEDICATIONS) Secondary Source(s): Caregiver (PATIENT UNABLE TO PARTICIPATE ) As the person ultimately responsible for medication therapy, providers are able to order a medication from an existing home medication list in [facility] via the "Reconcile Routine" prior to Confirmation of that medication by legal support specialist. Such practice is discouraged except when the physician, in their clinical judgment, deems that a medical need exists for a medication without regard to previous use.
[2020-08-20] MEDS: METOPROLOL SUCCINATE 25 MG TABLET PO SCH (13:44)
[2020-08-20] MEDS: SODIUM CHLORIDE FLUSH 0.9% 10 ML SYRINGE IVP PRN ×2 (13:48→14:31)
--- NOTE | 2020-08-20 15:54 | MRI Report ---
PROCEDURE: Brain W/O INDICATIONS: stroke-like symptoms TECHNIQUE: Noncontrast axial T1 spin echo, axial T2 fast spin echo, sagittal and axial FLAIR, coronal T2 fast sp in echo, axial gradient echo, axial diffusion and ADC through the brain. COMPARISON: Correlation is made with head and neck angiogram 08/18/2020. FINDINGS: Image quality: Motion artifact is noted. CSF Spaces: Basal cisterns are patent. No extra-axial fluid collections. Ventricles are normal in size and shape. Brain: A few tiny foci of increased diffusion-weighted abnormality can be seen involving the posteri or aspect of the left frontal lobe, as on series 405 images 17, 19, and 20. Associated dark signal ca n be seen on the ADC. There is developing T2-weighted signal seen at these sites. A few foci of hemosiderin deposition can be seen involving the posterior occipital lobes, right worse than left. Susceptibility artifact can also be seen along the gyri of the left cerebral hemisphere posteriorly a nd superiorly. Within this region, a mild degree of patchy increased T2-weighted hyperintensity can a lso be seen. No intracranial masses. Coy/white matter interface is normal. Brainstem appears normal. Normal in travascular flow voids are present. Skull and face: Calvarium has normal marrow signal. Orbits appear normal. Sinuses: Sinuses and mastoids are clear. IMPRESSION: Tiny foci of subacute infarction can be seen involving the posterior aspect of the right frontal lobe . Extra-axial susceptibility artifact can be seen along the posterior aspect of the left cerebral hemis phere posteriorly and superiorly. 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 However, given t he patchy increased T2-weighted hyperintensity, differential diagnosis would also include a low-grade neoplasm. A history of prior use is given and differential diagnosis also includes prior trauma. If clinically appropriate, a follow-up study with IV contrast could be considered for further evaluat ion. A few foci of apparent parenchymal hemosiderin deposition can be seen involving the posterior aspects of the occipital lobes, which may related to mild amyloid angiopathy. Differential diagnosis include s prior trauma. Reviewed by: Kumar Butt MD on 08/20/2020 2:53 PM AKST Approved by: Kumar Butt MD on 08/20/2020 2:53 PM AKST Station ID: [id number]
[2020-08-21] MEDS: SODIUM CHLORIDE FLUSH 0.9% 10 ML SYRINGE IVP SCH ×3 (03:13→16:21)
[2020-08-21] MEDS: NAFCILLIN 2 GM in SODIUM CHLORIDE 0.9% MINIBAG 100 ML IV SCH ×6 (03:13→22:32)
[2020-08-21 05:57] LABS: HGB - HEMOGLOBIN 11.4 g/dL (14.0-18.0); LYMPHOCYTES % (AUTO) 40.4 %; MEAN CORPUSCULAR HGB CONC 31.8 g/dL (32.0-36.0); MEAN CORPUSCULAR VOLUME 91.3 fL (80.0-94.0); MEAN PLATELET VOLUME 8.5 fL (7.4-11.4); MONOCYTES % (AUTO) 20.4 %; NEUTROPHILS % (AUTO) 38.8 %; PLT - PLATELET COUNT 304 10^3/uL (130-450); RED BLOOD COUNT 3.93 10^6/uL (4.70-6.10); RED CELL DISTRIBUTION WIDTH 14.3 % (12.0-15.0); WHITE BLOOD COUNT 2.6 x10^3/uL (4.8-10.8)
[2020-08-21 06:01] LABS: ABNORMAL LYMPHS % (MANUAL) 0 %
[2020-08-21 06:17] LABS: ALBUMIN 2.7 g/dL (3.2-5.5); ALBUMIN/GLOBULIN RATIO 0.8 (1.0-2.2); CALCIUM 8.1 mg/dL (8.5-10.3); TOTAL PROTEIN 6.1 g/dL (6.7-8.2)
[2020-08-21 06:20] LABS: BAND NEUTROPHILS % (MANUAL) 1 %; DIFFERENTIAL COMMENT MANUAL DIFFERENTIAL; LYMPHOCYTES # (MANUAL) 0.8 10^3/uL (1.5-3.5); LYMPHOCYTES % (MANUAL) 32 %; MONOCYTES # (MANUAL) 0.1 10^3/uL (0.0-1.0); PLATELET ESTIMATE, MANUAL NORMAL (130-450,000) (NORMAL); RBC MORPHOLOGY (MULTIPLE) NORMAL APPEARANCE (NORMAL)
[2020-08-21] MEDS: LACTATED RINGERS 1,000 ML IV SCH ×4 (06:35→22:32)
--- NOTE | 2020-08-21 08:31 | PROVIDER PROGRESS NOTE ---
Subjective - Prog Note Date Prog Note Date: 08/21/20 - Subjective Subjective: He is able to converse a little more this morning. He is unable to tell me where he is. He states he has pain but cannot tell me where. He was able to tell me his name and his son's name. He states he does feel confused. Current Medications - Current Medications Current Medications: Active Medications Albuterol (Albuterol 1 Puff) 2 puffs INH Q4H PRN PRN Reason: Wheezing Aspirin (Aspirin Ec 81 Mg Tablet) 81 mg PO DAILY [facility] Thiamine HCl 100 mg/ Sodium (Chloride) 51 mls @ 100 mls/hr IV DAILY [facility] Last Infusion: 08/20/20 10:38 Dose: Infused Documented by: Nafcillin Sodium 2 gm/ Sodium (Chloride) 100 mls @ 100 mls/hr IV Q4H [facility] Last Infusion: 08/21/20 07:25 Dose: 100 mls/hr Documented by: Lactated Ringer's (Lr) 1,000 mls @ 175 mls/hr IV .Q5H43M [facility] Last Admin: 08/21/20 07:58 Dose: 175 mls/hr Documented by: Metoprolol Succinate (Metoprolol Succinate 25 Mg Tablet) 25 mg PO DAILY [facility] Last Admin: 08/20/20 13:44 Dose: 25 mg Documented by: Ondansetron HCl (Ondansetron 4 Mg/2 Ml Vial) 4 mg IVP Q6HR PRN PRN Reason: Nausea / Vomiting Sodium Chloride (Sodium Chloride Flush 0.9% 10 Ml Syringe) 10 ml IVP PRN PRN PRN Reason: NEEDED PER PROVIDER ORDERS Last Admin: 08/20/20 14:31 Dose: 10 ml Documented by: Sodium Chloride (Sodium Chloride Flush 0.9% 10 Ml Syringe) 10 ml IVP 0100,0900,1700 [facility] Last Admin: 08/21/20 03:13 Dose: 10 ml Documented by: Tamsulosin HCl (Tamsulosin 0.4 Mg Capsule) 0.4 mg PO DAILY [facility] Last Admin: 08/20/20 10:07 Dose: 0.4 mg Documented by: FLUoxetine [PROzac] 20 mg PO DAILY 01/04/19 Umeclidinium Brm/Vilanterol Tr [Anoro Ellipta 62.5-25 Mcg INH] 1 puffs INH DAILY 01/08/20 Umeclidinium [place] [Incruse Ellipta] 1 puffs INH DAILY 01/08/20 Lactobacillus Acidophilus [Probiotic Acidophilus] 1 tab PO DAILY 08/20/20 Objective - Vital Signs/Intake & Output Reviewed Vital Signs: Yes Vital Signs: Vital Signs x48h Temp Pulse Resp BP Pulse Ox 08/21/20 08:10 36.9 C 56 L 18 151/95 H 97 08/21/20 05:00 36.8 C 55 L 16 151/93 H 98 08/21/20 01:00 36.7 C 62 17 146/102 H 98 Intake & Output: Intake & Output 08/18/20 08/19/20 08/20/20 08/21/20 23:59 23:59 23:59 23:59 Intake Total 1100 4793.333 4806.000 751.584 Output Total 1900 1925 2575 2300 Balance -800 2868.333 2231.000 -1548.416 - Objective General Appearance: positive: No acute distress, Alert Eyes Bilateral: positive: Conjunctivae nml ENT: positive: ENT inspection nml Neck: positive: Nml inspection Respiratory: positive: No respiratory distress. negative: Wheezes, Rales Cardiovascular: positive: Regular rate & rhythm. negative: Irregularly irregular, Tachycardia, Systolic murmur Abdomen: positive: Non-tender, No distention. negative: Tenderness Skin: positive: Warm, Dry Extremities: positive: No pedal edema Neurologic/Psychiatric: positive: Disoriented to place, Disoriented to time, Other (Moving all 4 extremities. No facial droop. Speech is delayed. He is not repeating sentences today but he is still clearly not oriented. He was able to tell me his name and his son's name which is an improvement.). negative: Disoriented to person - Lab Results Fish Bones: 08/21/20 05:19 08/21/20 05:19 Other Labs: Lab Results x24hrs 08/21/20 08/21/20 08/21/20 Range/Units 05:19 05:19 05:19 WBC 2.6 L (4.8-10.8) x10^3/uL RBC 3.93 L (4.70-6.10) 10^6/uL Hgb 11.4 L (14.0-18.0) g/dL Hct 35.9 L (42.0-52.0) % MCV 91.3 (80.0-94.0) fL MCH 29.0 (27.0-31.0) pg MCHC 31.8 L (32.0-36.0) g/dL RDW 14.3 (12.0-15.0) % Plt Count 304 (130-450) 10^3/uL MPV 8.5 (7.4-11.4) fL Neut # (Auto) Not Reportable Lymph # (Auto) Not Reportable [place] # (Auto) Not Reportable Eos # (Auto) Not Reportable Baso # (Auto) Not Reportable Absolute Nucleated RBC Not Reportable Total Counted 100 Band Neuts % (Manual) 1 (0 - 10) % Abnorm Lymph % (Manual) 0 % Nucleated RBC % Not Reportable Neutrophils # (Manual) 1.6 (1.5-6.6) 10^3/uL Lymphocytes # (Manual) 0.8 L (1.5-3.5) 10^3/uL Monocytes # (Manual) 0.1 (0.0-1.0) 10^3/uL Eosinophils # (Manual) 0.0 (0-0.7) 10^3/uL Basophils # (Manual) 0.0 (0-0.1) 10^3/uL Differential Comment MANUAL DIFFERENTIAL Platelet Estimate NORMAL (130-450,000) (NORMAL) RBC Morph Micro Appear NORMAL APPEARANCE (NORMAL) Sodium 137 (135-145) mmol/L Potassium 3.7 (3.5-5.0) mmol/L Chloride 109 (101-111) mmol/L Carbon Dioxide 22 (21-32) mmol/L Anion Gap 6.0 (6-13) BUN 9 (6-20) mg/dL Creatinine 1.0 (0.6-1.2) mg/dL Estimated GFR (MDRD) 75 L (>89) Glucose 100 (70-100) mg/dL Calcium 8.1 L (8.5-10.3) mg/dL Total Bilirubin 1.0 (0.2-1.0) mg/dL AST 51 H (10-42) IU/L ALT 10 (10-60) IU/L Alkaline Phosphatase 51 (42-121) IU/L Total Creatine Kinase 2389 H* (22-269) IU/L Total Protein 6.1 L (6.7-8.2) g/dL Albumin 2.7 L (3.2-5.5) g/dL Globulin 3.4 (2.1-4.2) g/dL Albumin/Globulin Ratio 0.8 L (1.0-2.2) TSH 2.54 (0.34-5.60) uIU/mL ABX Reporting Has patient been on IV antibiotics over the past 48 hours?: Yes Assessment/Plan - Problem List (1) Altered mental status Impression: Suspect this may be secondary the frontal lobe stroke in a patient who already has cognitive impairment. The MRI did reveal an infarct and mass could also not be ruled out. He has now been hospitalized for more than four [address] that this is related to methamphetamines that he would have shown more significant improvement. He is definitely improved today is able to press been a conversation of a little compared to yesterday. He is also able to tell me his name and his son's name which he was unable to do. We will hold off on lumbar puncture given the lack of fever and the fact the stroke may explain his disorientation. He has also already shown improvement. We will continue with delirium precautions. We will obtain a repeat MRI with contrast given the concern for a possible mass. Qualifiers: Altered mental status type: disorientation Qualified Code(s): R41.0 - Disorientation, unspecified (2) Cerebrovascular accident (CVA) Impression: The MRI did confirm a small posterior right frontal lobe stroke. This may expla in his disorientation in a patient already has cognitive impairment. CT of the head and neck on admission did not show any significant vascular disease. He has been started on aspirin. We will hold off on statin given his rhabdomyolysis. Will obtain echocardiogram. His initial EKG was sinus rhythm we will place him on telemetry to look for atrial fibrillation. Will check A1c and lipid panel. Will consult PT and OT as I suspect he will likely need placement given his ongoing disorientation. (3) Rhabdomyolysis Impression: This is slowly improving. We will increase his IV fluids to 175 mL an hour. Continue check daily CKs. We will hold off on statin despite his stroke given the rhabdomyolysis. (4) Osteomyelitis of spine Impression: He is on nafcillin for osteomyelitis of the thoracic spine. I reviewed the dis charge summary from [facility] in [place] as well as the last infectious disease note. He was on cefazolin for 6 weeks and although documentation is not clear, per our pharmacist here he was changed to extended release nafcillin. His son also did tell me that antibiotics were changed recently. We will keep him on the nafcillin 2 g every 4 hours. He will need outpatient follow-up with infectious d cuauhtemoc once he is discharged. (5) Methamphetamine abuse Impression: His initial urine toxicology was positive for methamphetamines. As he becomes more oriented, will discuss his drug use. (6) Urinary retention Impression: We will attempt voiding trial today. We have resumed his home Flomax. (7) Dementia Impression: He does have dementia at baseline and his son states his short-term memory loss had been progressing unfortunately. Given the new frontal lobe infarct, this co uld be contributing to his worsening disorientation. He may need placement on discharge. Appreciate social work input. (8) COPD (chronic obstructive pulmonary disease) Impression: Stable and not in exacerbation. We will continue his home inhalers and albuterol as needed.
[2020-08-21] MEDS: ASPIRIN EC 81 MG TABLET PO SCH (09:33)
[2020-08-21] MEDS: METOPROLOL SUCCINATE 25 MG TABLET PO SCH (09:33)
[2020-08-21] MEDS: TAMSULOSIN 0.4 MG CAPSULE PO SCH (09:33)
[2020-08-21] MEDS: THIAMINE INJ 100 MG in SODIUM CHLORIDE 0.9% 50 ML IV SCH (09:34)
[2020-08-21] MEDS: FORMOTEROL FUMARATE NEB 20 MCG/2 ML INH SCH ×2 (10:49→19:20)
[2020-08-21] MEDS ORDERED: GADOBUTROL 10 MMOL/10 ML VIAL ONE (18:22)
[2020-08-21] MEDS ORDERED: GADOBUTROL 10 MMOL/10 ML VIAL IVP ONE (18:43)
--- NOTE | 2020-08-21 22:52 | PROVIDER PROGRESS NOTE ---
Refractive Surgeon Note - Refractive Surgeon Note Refractive Surgeon Note: August 21, 2020 10:49 PM RN called to let me know the patient had an episode of bloody diarrhea. The patient is confused. Does not even realize he had it. No pain. No abdominal pain. No fever, no chills. Medications: Aspirin, Perforomist, lactated Ringer's, Toprol-XL, nafcillin, Zofran, Flomax, vitamin B1. Temperature 36.2 heart rate 71 blood pressure 165/109, respirations 14 and he is 90% saturated on room air. Abdomen is benign with normal bowel sounds. Nontender. Cannot tell me where he is why he is here. MRI from this afternoon shows him to have tiny foci of subacute infarction involving the posterior aspect of the right frontal lobe. Extra axial susceptibility artifact can be seen along the posterior aspect of the left cerebral hemisphere posteriorly and superiorly. Might be superficial siderosis. However differential diagnosis would also include a low-grade neoplasm. Assessment/plan\ Bloody diarrhea, painless, no fever or white cell count. Possible internal hemorrhoids, diverticular bleed, and I doubt C. difficile colitis by its appearance and smell. Check stool for culture, check CBC
[2020-08-22 00:49] LABS: HGB - HEMOGLOBIN 11.7 g/dL (14.0-18.0); MEAN CORPUSCULAR HEMOGLOBIN 28.7 pg (27.0-31.0); MEAN CORPUSCULAR HGB CONC 31.7 g/dL (32.0-36.0); MEAN CORPUSCULAR VOLUME 90.7 fL (80.0-94.0); MEAN PLATELET VOLUME 8.2 fL (7.4-11.4); RED BLOOD COUNT 4.07 10^6/uL (4.70-6.10); RED CELL DISTRIBUTION WIDTH 14.2 % (12.0-15.0); WHITE BLOOD COUNT 3.1 x10^3/uL (4.8-10.8)
[2020-08-22] MEDS: SODIUM CHLORIDE FLUSH 0.9% 10 ML SYRINGE IVP SCH ×4 (00:53→23:38)
[2020-08-22] MEDS: NAFCILLIN 2 GM in SODIUM CHLORIDE 0.9% MINIBAG 100 ML IV SCH ×6 (02:30→22:40)
[2020-08-22 05:47] LABS: HGB - HEMOGLOBIN 11.5 g/dL (14.0-18.0); LYMPHOCYTES % (AUTO) 29.5 %; MEAN CORPUSCULAR HEMOGLOBIN 28.7 pg (27.0-31.0); MEAN CORPUSCULAR HGB CONC 31.7 g/dL (32.0-36.0); MEAN CORPUSCULAR VOLUME 90.5 fL (80.0-94.0); MEAN PLATELET VOLUME 8.3 fL (7.4-11.4); MONOCYTES % (AUTO) 22.1 %; NEUTROPHILS % (AUTO) 47.8 %; PLT - PLATELET COUNT 278 10^3/uL (130-450); RED BLOOD COUNT 4.01 10^6/uL (4.70-6.10); WHITE BLOOD COUNT 3.1 x10^3/uL (4.8-10.8)
[2020-08-22 05:51] LABS: ABNORMAL LYMPHS % (MANUAL) 0 %
[2020-08-22 06:01] LABS: BUN - BLOOD UREA NITROGEN 9 mg/dL (6-20); CALCIUM 8.4 mg/dL (8.5-10.3); CARBON DIOXIDE - CO2 24 mmol/L (21-32); CHLORIDE 104 mmol/L (101-111); CHOL/HDL RATIO 3.8 (<5.0); CHOLESTEROL 145 mg/dL; GLUCOSE 105 mg/dL (70-100); HDL CHOLESTEROL 38 mg/dL; LDL CHOLESTEROL,CALCULATED 90 mg/dL; LDL/HDL RATIO 2.4 (<3.6); MAGNESIUM 1.6 mg/dL (1.7-2.8); VLDL CHOLESTEROL 17 mg/dL
[2020-08-22 06:10] LABS: BAND NEUTROPHILS % (MANUAL) 1 %; DIFFERENTIAL COMMENT MANUAL DIFFERENTIAL; LYMPHOCYTES # (MANUAL) 0.7 10^3/uL (1.5-3.5); LYMPHOCYTES % (MANUAL) 23 %; MONOCYTES # (MANUAL) 0.7 10^3/uL (0.0-1.0); PLATELET ESTIMATE, MANUAL NORMAL (130-450,000) (NORMAL); PLATELET MORPHOLOGY NORMAL APPEARANCE (NORMAL); RBC MORPHOLOGY (MULTIPLE) NORMAL APPEARANCE (NORMAL)
[2020-08-22] MEDS: LACTATED RINGERS 1,000 ML IV SCH ×3 (06:25→18:51)
[2020-08-22] MEDS: FORMOTEROL FUMARATE NEB 20 MCG/2 ML INH SCH ×2 (07:45→21:12)
[2020-08-22] MEDS: POTASSIUM CHLORIDE 20 MEQ/15 ML UDC PO SCH ×3 (08:12→16:22)
[2020-08-22] MEDS: TAMSULOSIN 0.4 MG CAPSULE PO SCH (08:13)
[2020-08-22] MEDS: ASPIRIN EC 81 MG TABLET PO SCH (08:13)
[2020-08-22] MEDS: THIAMINE 100 MG TABLET PO SCH (08:13)
[2020-08-22] MEDS: METOPROLOL SUCCINATE 25 MG TABLET PO SCH (08:13)
--- NOTE | 2020-08-22 09:29 | PROVIDER PROGRESS NOTE ---
Subjective - Prog Note Date Prog Note Date: 08/22/20 - Subjective Subjective: He states he feels better today but still feels confused. He knows he is at the hospital. He does not know why he is here. He did have bright red blood per rectum overnight. He complains of left-sided pelvic pain that has been present for many months. He also states he has lower abdominal pain Current Medications - Current Medications Current Medications: Active Medications Aspirin (Aspirin Ec 81 Mg Tablet) 81 mg PO DAILY [facility] Last Admin: 08/22/20 08:13 Dose: 81 mg Documented by: Formoterol Fumarate (Formoterol Fumarate Neb 20 Mcg/2 Ml) 20 mcg INH RTBID [facility] Last Admin: 08/22/20 07:45 Dose: 20 mcg Documented by: Nafcillin Sodium 2 gm/ Sodium (Chloride) 100 mls @ 100 mls/hr IV Q4H [facility] Last Admin: 08/22/20 11:02 Dose: 100 mls/hr Documented by: Lactated Ringer's (Lr) 1,000 mls @ 175 mls/hr IV .Q5H43M [facility] Last Admin: 08/22/20 06:25 Dose: 175 mls/hr Documented by: Metoprolol Succinate (Metoprolol Succinate 25 Mg Tablet) 25 mg PO DAILY [facility] Last Admin: 08/22/20 08:13 Dose: 25 mg Documented by: Ondansetron HCl (Ondansetron 4 Mg/2 Ml Vial) 4 mg IVP Q6HR PRN PRN Reason: Nausea / Vomiting Potassium Chloride (Potassium Chloride 20 Meq/15 Ml Udc) 40 meq PO TIDWM [facility] Stop: 08/22/20 17:01 Last Admin: 08/22/20 08:12 Dose: 40 meq Documented by: Sodium Chloride (Sodium Chloride Flush 0.9% 10 Ml Syringe) 10 ml IVP PRN PRN PRN Reason: NEEDED PER PROVIDER ORDERS Last Admin: 08/20/20 14:31 Dose: 10 ml Documented by: Sodium Chloride (Sodium Chloride Flush 0.9% 10 Ml Syringe) 10 ml IVP 0100,0900,1700 [facility] Last Admin: 08/22/20 08:19 Dose: 10 ml Documented by: Tamsulosin HCl (Tamsulosin 0.4 Mg Capsule) 0.4 mg PO DAILY [facility] Last Admin: 08/22/20 08:13 Dose: 0.4 mg Documented by: Thiamine HCl (Thiamine 100 Mg Tablet) 100 mg PO DAILY [facility] Last Admin: 08/22/20 08:13 Dose: 100 mg Documented by: FLUoxetine [PROzac] 20 mg PO DAILY 01/04/19 Umeclidinium Brm/Vilanterol Tr [Anoro Ellipta 62.5-25 Mcg INH] 1 puffs INH DAILY 01/08/20 Umeclidinium [place] [Incruse Ellipta] 1 puffs INH DAILY 01/08/20 Lactobacillus Acidophilus [Probiotic Acidophilus] 1 tab PO DAILY 08/20/20 Objective - Vital Signs/Intake & Output Reviewed Vital Signs: Yes Vital Signs: Vital Signs x48h Temp Pulse Pulse Resp BP Pulse Ox 08/22/20 08:22 36.8 C 52 L 20 148/99 H 99 08/22/20 07:45 64 18 08/22/20 04:06 36.5 C 61 18 155/97 H 98 Intake & Output: Intake & Output 08/19/20 08/20/20 08/21/20 08/22/20 23:59 23:59 23:59 23:59 Intake Total 4793.333 4806.000 4324.084 1680 Output Total 1925 2575 4250 Balance 2868.333 2231.000 74.084 1680 - Objective General Appearance: positive: No acute distress, Alert Eyes Bilateral: positive: Normal inspection, Conjunctivae nml ENT: positive: ENT inspection nml Neck: positive: Nml inspection Respiratory: positive: No respiratory distress. negative: Wheezes, Rales Cardiovascular: positive: Regular rate & rhythm. negative: Extrasystoles, Tachycardia, Systolic murmur Abdomen: positive: Nml bowel sounds, No distention, Tenderness (He is tender in the suprapubic region.). negative: Guarding, Rebound Skin: positive: Warm, Dry Extremities: positive: No pedal edema Neurologic/Psychiatric: positive: Disoriented to time, Other (He is able to move all 4 extremities. Left lower extremity motor strength appears decreased compared to right but he states this is due to left hip pain. He has been am bulating independently in the room.). negative: Disoriented to person, Disoriented to place - Lab Results Fish Bones: 08/23/20 05:04 08/23/20 05:04 Other Labs: Lab Results x24hrs 08/22/20 08/22/20 08/22/20 Range/Units 05:23 05:23 00:35 WBC 3.1 L 3.1 L (4.8-10.8) x10^3/uL RBC 4.01 L 4.07 L (4.70-6.10) 10^6/uL Hgb 11.5 L 11.7 L (14.0-18.0) g/dL Hct 36.3 L 36.9 L (42.0-52.0) % MCV 90.5 90.7 (80.0-94.0) fL MCH 28.7 28.7 (27.0-31.0) pg MCHC 31.7 L 31.7 L (32.0-36.0) g/dL RDW 14.0 14.2 (12.0-15.0) % Plt Count 278 309 (130-450) 10^3/uL MPV 8.3 8.2 (7.4-11.4) fL Neut # (Auto) Not Reportable Lymph # (Auto) Not Reportable [place] # (Auto) Not Reportable Eos # (Auto) Not Reportable Baso # (Auto) Not Reportable Absolute Nucleated RBC Not Reportable Total Counted 100 Band Neuts % (Manual) 1 (0 - 10) % Abnorm Lymph % (Manual) 0 % Nucleated RBC % Not Reportable Neutrophils # (Manual) 1.7 (1.5-6.6) 10^3/uL Lymphocytes # (Manual) 0.7 L (1.5-3.5) 10^3/uL Monocytes # (Manual) 0.7 (0.0-1.0) 10^3/uL Eosinophils # (Manual) 0.0 (0-0.7) 10^3/uL Basophils # (Manual) 0.0 (0-0.1) 10^3/uL Differential Comment MANUAL DIFFERENTIAL WBC Morphology NORMAL APPEARANCE (NORMAL) Platelet Estimate NORMAL (130-450,000) (NORMAL) Platelet Morphology NORMAL APPEARANCE (NORMAL) RBC Morph Micro Appear NORMAL APPEARANCE (NORMAL) Sodium 136 (135-145) mmol/L Potassium 2.9 L (3.5-5.0) mmol/L Chloride 104 (101-111) mmol/L Carbon Dioxide 24 (21-32) mmol/L Anion Gap 8.0 (6-13) BUN 9 (6-20) mg/dL Creatinine 1.0 (0.6-1.2) mg/dL Estimated GFR (MDRD) 75 L (>89) Glucose 105 H (70-100) mg/dL Calcium 8.4 L (8.5-10.3) mg/dL Magnesium 1.6 L (1.7-2.8) mg/dL Triglycerides 84 ( - 149) mg/dL Cholesterol 145 ( - 199) mg/dL LDL Cholesterol, Calc 90 ( - 129) mg/dL VLDL Cholesterol 17 mg/dL HDL Cholesterol 38 L (60 - ) mg/dL LDL/HDL Ratio 2.4 (<3.6) Cholesterol/HDL Ratio 3.8 (<5.0) ABX Reporting Has patient been on IV antibiotics over the past 48 hours?: Yes Assessment/Plan - Problem List (1) Altered mental status Impression: His disorientation appears to be improving. He is more coherent with his speech. He is able to tell me his of the hospital but he does not know why he is here. He can tell me his name and his son's name. He has made slow progress. I suspect this delirium/disorientation is likely due to the stroke in the frontal lobe in a patient who already has dementia. We will continue with delirium precautions. Avoid sedatives. We will follow up the MRI with contrast. Qualifiers: Altered mental status type: disorientation Qualified Code(s): R41.0 - Disorientation, unspecified (2) Cerebrovascular accident (CVA) Impression: MRI of the brain confirmed right frontal lobe infarct. This is likely contributing to his delirium in a patient already has dementia. He does not cabrera ear improved today. He does complain of left lower extremity weakness but he has been ambulating on his own in the room. He has been on aspirin we are holding statin due to his rhabdomyolysis. His echocardiogram was unremarkable and he has been in a sinus rhythm on telemetry. At this time, we will continue with aspirin. A repeat MRI was obtained yesterday with contrast given initial neuro is concerning for possible neoplasm. We will follow up the results of this imaging. From a PT perspective, he does not need physical therapy. (3) Rhabdomyolysis Impression: He remains on IV fluids. CKs for today are pending. We will hold statin despite his stroke given the rhabdomyolysis. (4) Osteomyelitis of spine Impression: We are continuing him on nafcillin for the thoracic spine osteomyelitis. He will continue outpatient follow-up with infectious disease on discharge. (5) Bright red blood per rectum Impression: He had bright red blood per rectum overnight. This was painless. He has been hemodynamically stable and his hemoglobin also remained stable. Given his lower abdominal pain, we will consider obtaining imaging with a CT of the abdomen pelvis if his pain is not explain by urinary retention. We will continue to monitor for further bleeding and monitor his hemoglobin closely. (6) Methamphetamine abuse Impression: He denies amphetamine use but he is still disoriented and so his history is not accurate. (7) Urinary retention Impression: We have removed his Elizondo catheter. He does have some lower abdominal pain tenderness. We will check a bladder scan to ensure he is not retaining as he had over 1 L on admission. If he does have urine retention he will need a Elizondo to be placed again outpatient urology follow-up. Continue with Flomax. (8) Dementia Impression: He has dementia at baseline with short-term memory loss. He is now most disoriented likely due to his stroke. He will likely need caregivers at home or a memory care unit on discharge. Appreciate social work input. (9) COPD (chronic obstructive pulmonary disease) Impression: This is stable and not in exacerbation. Continue his home inhalers and albuterol as needed.
[2020-08-22 11:49] LABS: HEMOGLOBIN A1c% 5.3 % (4.27-6.07)
--- NOTE | 2020-08-22 15:21 | MRI Report ---
PROCEDURE: Brain W/Contrast INDICATIONS: Stroke. Possible neoplasm on non-con MRI. TECHNIQUE: Additional contrast enhanced scanning was utilized to supplement the brain MRI performed w ithout contrast one day ago, 08/20/2020. Sagittal, axial and coronal postcontrast fat suppressed T1 sc anning is obtained with additional sagittal multiplanar localizer imaging. COMPARISON: Additional brain MRI one day ago reviewed, which this study is supplemental to. FINDINGS: The brain parenchyma shows no area of abnormal contrast enhancement or mass effect. Along the meninge al surfaces there is no identified evidence of meningioma or inflammation. The underlying diploic spa ce shows no evidence of metastatic disease, and throughout the brain parenchyma no vascular abnormali ty is seen. IMPRESSION: The contrast-enhanced supplemental portion of this examination with reference to the brain MRI withou t contrast 1 day ago reveals no evidence of underlying infection or neoplasm. No vascular abnormality such as aneurysm or vascular malformation is seen. Reviewed by: Venancio Mejia MD on 08/22/2020 3:20 PM PST Approved by: Venancio Mejia MD on 08/22/2020 3:20 PM PST Station ID: [id number]
[2020-08-22] MEDS: MAGNESIUM OXIDE 400 MG TABLET PO SCH (16:21)
[2020-08-23] MEDS: NAFCILLIN 2 GM in SODIUM CHLORIDE 0.9% MINIBAG 100 ML IV SCH ×6 (02:27→23:14)
[2020-08-23] MEDS: LACTATED RINGERS 1,000 ML IV SCH ×3 (02:28→19:04)
[2020-08-23 05:27] LABS: BASOPHILS % (AUTO) 0.3 %; HGB - HEMOGLOBIN 10.7 g/dL (14.0-18.0); LYMPHOCYTES # (AUTO) 1.2 10^3/uL (1.5-3.5); LYMPHOCYTES % (AUTO) 31.3 %; MEAN CORPUSCULAR HEMOGLOBIN 28.6 pg (27.0-31.0); MEAN CORPUSCULAR HGB CONC 31.3 g/dL (32.0-36.0); MEAN CORPUSCULAR VOLUME 91.4 fL (80.0-94.0); MEAN PLATELET VOLUME 8.3 fL (7.4-11.4); MONOCYTES # (AUTO) 0.7 10^3/uL (0.0-1.0); MONOCYTES % (AUTO) 17.9 %; NEUTROPHILS # (AUTO) 1.9 10^3/uL (1.5-6.6); NEUTROPHILS % (AUTO) 49.7 %; PLT - PLATELET COUNT 259 10^3/uL (130-450); RED BLOOD COUNT 3.74 10^6/uL (4.70-6.10); RED CELL DISTRIBUTION WIDTH 14.7 % (12.0-15.0); WHITE BLOOD COUNT 3.8 x10^3/uL (4.8-10.8)
[2020-08-23 05:38] LABS: CALCIUM 8.1 mg/dL (8.5-10.3); CREATININE 1.2 mg/dL (0.6-1.2); MAGNESIUM 1.6 mg/dL (1.7-2.8)
[2020-08-23] MEDS ORDERED: POTASSIUM CHLORIDE 20 MEQ TABLET PO ONE (07:26)
[2020-08-23] MEDS: FORMOTEROL FUMARATE NEB 20 MCG/2 ML INH SCH ×2 (07:54→20:20)
[2020-08-23] MEDS: ASPIRIN EC 81 MG TABLET PO SCH (09:13)
[2020-08-23] MEDS: TAMSULOSIN 0.4 MG CAPSULE PO SCH (09:13)
[2020-08-23] MEDS: MAGNESIUM OXIDE 400 MG TABLET PO SCH (09:14)
[2020-08-23] MEDS: METOPROLOL SUCCINATE 25 MG TABLET PO SCH (09:14)
[2020-08-23] MEDS: THIAMINE 100 MG TABLET PO SCH (09:14)
[2020-08-23] MEDS: SODIUM CHLORIDE FLUSH 0.9% 10 ML SYRINGE IVP SCH ×2 (11:30→17:31)
--- NOTE | 2020-08-23 17:47 | PROVIDER PROGRESS NOTE ---
Subjective - Prog Note Date Prog Note Date: 08/23/20 - Subjective Subjective: Feels like he is less confused today. He knows he is at the hospital and he is on [facility]. He was able to tell me by his sister who lives in [place]. I confirmed this with his son. He reports no abdominal pain. No further episodes of bleeding. Current Medications - Current Medications Current Medications: Active Medications Aspirin (Aspirin Ec 81 Mg Tablet) 81 mg PO DAILY [facility] Last Admin: 08/23/20 09:13 Dose: 81 mg Documented by: Formoterol Fumarate (Formoterol Fumarate Neb 20 Mcg/2 Ml) 20 mcg INH RTBID [facility] Last Admin: 08/23/20 07:54 Dose: 20 mcg Documented by: Nafcillin Sodium 2 gm/ Sodium (Chloride) 100 mls @ 100 mls/hr IV Q4H [facility] Last Infusion: 08/23/20 16:40 Dose: Infused Documented by: Lactated Ringer's (Lr) 1,000 mls @ 175 mls/hr IV .Q5H43M [facility] Last Admin: 08/23/20 11:28 Dose: 175 mls/hr Documented by: Magnesium Oxide (Magnesium Oxide 400 Mg Tablet) 400 mg PO DAILYWM [facility] Last Admin: 08/23/20 09:14 Dose: 400 mg Documented by: Metoprolol Succinate (Metoprolol Succinate 25 Mg Tablet) 25 mg PO DAILY [facility] Last Admin: 08/23/20 09:14 Dose: 25 mg Documented by: Ondansetron HCl (Ondansetron 4 Mg/2 Ml Vial) 4 mg IVP Q6HR PRN PRN Reason: Nausea / Vomiting Sodium Chloride (Sodium Chloride Flush 0.9% 10 Ml Syringe) 10 ml IVP PRN PRN PRN Reason: NEEDED PER PROVIDER ORDERS Last Admin: 08/20/20 14:31 Dose: 10 ml Documented by: Sodium Chloride (Sodium Chloride Flush 0.9% 10 Ml Syringe) 10 ml IVP 0100,0900,1700 [facility] Last Admin: 08/23/20 17:31 Dose: Not Given Documented by: Tamsulosin HCl (Tamsulosin 0.4 Mg Capsule) 0.4 mg PO DAILY [facility] Last Admin: 08/23/20 09:13 Dose: 0.4 mg Documented by: Thiamine HCl (Thiamine 100 Mg Tablet) 100 mg PO DAILY [facility] Last Admin: 08/23/20 09:14 Dose: 100 mg Documented by: FLUoxetine [PROzac] 20 mg PO DAILY 01/04/19 Umeclidinium Brm/Vilanterol Tr [Anoro Ellipta 62.5-25 Mcg INH] 1 puffs INH DAILY 01/08/20 Umeclidinium [place] [Incruse Ellipta] 1 puffs INH DAILY 01/08/20 Lactobacillus Acidophilus [Probiotic Acidophilus] 1 tab PO DAILY 08/20/20 Objective - Vital Signs/Intake & Output Reviewed Vital Signs: Yes Vital Signs: Vital Signs x48h Temp Pulse Resp BP Pulse Ox 08/23/20 15:52 37.2 C 61 18 150/96 H 98 08/23/20 11:12 36.7 C 65 18 137/94 H 99 Intake & Output: Intake & Output 08/20/20 08/21/20 08/22/20 08/23/20 23:59 23:59 23:59 23:59 Intake Total 4806.000 4324.084 4136.667 3321.667 Output Total 2575 4250 3475 1600 Balance 2231.000 74.084 292.316 3643.667 - Objective General Appearance: positive: No acute distress, Alert Eyes Bilateral: positive: Normal inspection, Conjunctivae nml ENT: positive: ENT inspection nml Neck: positive: Nml inspection Respiratory: positive: No respiratory distress. negative: Wheezes, Rales Cardiovascular: positive: Regular rate & rhythm. negative: Tachycardia Abdomen: positive: Non-tender, No distention. negative: Tenderness Skin: positive: Warm, Dry Extremities: negative: No pedal edema Neurologic/Psychiatric: positive: Disoriented to time, Other (Moving all 4 extremities. Left lower extremity strength is limited due to left hip pain.). negative: Disoriented to person, Disoriented to place, Facial droop, Slu rred/abnml speech - Lab Results Fish Bones: 08/23/20 05:04 08/23/20 05:04 Other Labs: Lab Results x24hrs 08/23/20 08/23/20 Range/Units 05:04 05:04 WBC 3.8 L (4.8-10.8) x10^3/uL RBC 3.74 L (4.70-6.10) 10^6/uL Hgb 10.7 L (14.0-18.0) g/dL Hct 34.2 L (42.0-52.0) % MCV 91.4 (80.0-94.0) fL MCH 28.6 (27.0-31.0) pg MCHC 31.3 L (32.0-36.0) g/dL RDW 14.7 (12.0-15.0) % Plt Count 259 (130-450) 10^3/uL MPV 8.3 (7.4-11.4) fL Neut # (Auto) 1.9 (1.5-6.6) 10^3/uL Lymph # (Auto) 1.2 L (1.5-3.5) 10^3/uL [place] # (Auto) 0.7 (0.0-1.0) 10^3/uL Eos # (Auto) 0.0 (0.0-0.7) 10^3/uL Baso # (Auto) 0.0 (0.0-0.1) 10^3/uL Absolute Nucleated RBC 0.00 x10^3/uL Nucleated RBC % 0.0 /100WBC Sodium 137 (135-145) mmol/L Potassium 3.5 (3.5-5.0) mmol/L Chloride 108 (101-111) mmol/L Carbon Dioxide 25 (21-32) mmol/L Anion Gap 4.0 L (6-13) BUN 10 (6-20) mg/dL Creatinine 1.2 (0.6-1.2) mg/dL Estimated GFR (MDRD) 61 L (>89) Glucose 98 (70-100) mg/dL Calcium 8.1 L (8.5-10.3) mg/dL Magnesium 1.6 L (1.7-2.8) mg/dL Total Creatine Kinase 1248 H* (22-269) IU/L ABX Reporting Has patient been on IV antibiotics over the past 48 hours?: Yes Assessment/Plan - Problem List (1) Altered mental status Impression: Continues to progress on a daily basis. I suspect his disorientation related to stroke in the setting of underlying dementia. At this point in time, he is medically stable from a neurologic standpoint for discharge. I did speak with his son over the phone today and he prefers a memory care unit. We will work with social work regarding disposition. The patient will not be a safe discharge to home alone as he can be impulsive at times. Qualifiers: Altered mental status type: disorientation Qualified Code(s): R41.0 - Disorientation, unspecified (2) Cerebrovascular accident (CVA) Impression: MRI confirmed right posterior frontal lobe infarct. He is on aspirin. We have not yet started a statin due to his rhabdomyolysis. He has been evaluated by PT and he will need home health PT on discharge (3) Rhabdomyolysis Impression: Slowly improving. His CKs are now nearly down to 1000. We will continue him on IV fluids overnight and suspect to be ready for discharge tomorrow. Recheck CKs in the morning. (4) Osteomyelitis of spine Impression: Stable. We are continuing him on nafcillin. He will continue his antibiotics on discharge and follow-up with infectious disease at [place]. (5) Bright red blood per rectum Impression: There have been no further episodes of bleeding and his hemoglobin is stable. Continue to monitor for time being. (6) Urinary retention Impression: This was likely the cause of his lower abdominal pain yesterday. This is resolved after Elizondo catheter was placed for urinary retention. We will continue Flomax and he will be discharged with a Elizondo catheter. He will need urology follow-up. (7) Dementia Impression: He has dementia at baseline although he is more disoriented now likely due to his stroke. He will need caregivers at home or will need a memory care unit. Appreciate social work input. (8) Methamphetamine abuse Impression: He denies the use methamphetamine although I am not sure if this is related to his disorientation or not. (9) COPD (chronic obstructive pulmonary disease) Impression: Stable and not in exacerbation. Continue inhalers.
--- NOTE | 2020-08-23 18:48 | XRAY Report ---
PROCEDURE: Hip w/Pelvis 2-3V LT INDICATIONS: Pain with movement. Tenderness. TECHNIQUE: AP pelvis with lateral view(s) of the left hip(s). COMPARISON: . There is mild joint space loss of the superior aspect of the right hip with the adjace nt sclerosis FINDINGS: Bones: There is osseous remodeling of the superior left femoral head and acetabulum with collapse of the superior femoral head with adjacent sclerosis. There is mild joint space loss of the superior asp ect of the right hip with osteophytosis. Degenerative changes of the spine. Soft tissues: The visualized bowel gas pattern is normal. No suspicious soft tissue calcifications. 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 [id number] degenerative changes of the right hip. Reviewed by: Camilo Mckeon DO on 08/23/2020 5:47 PM [facility] Approved by: Camilo Mckeon DO on 08/23/2020 5:47 PM [facility] Station ID: [id number]
[2020-08-24] MEDS: SODIUM CHLORIDE FLUSH 0.9% 10 ML SYRINGE IVP SCH ×3 (01:31→17:02)
[2020-08-24] MEDS: NAFCILLIN 2 GM in SODIUM CHLORIDE 0.9% MINIBAG 100 ML IV SCH ×6 (02:31→23:45)
[2020-08-24] MEDS: LACTATED RINGERS 1,000 ML IV SCH (04:41)
[2020-08-24 05:27] LABS: HGB - HEMOGLOBIN 10.3 g/dL (14.0-18.0); LYMPHOCYTES # (AUTO) 1.3 10^3/uL (1.5-3.5); LYMPHOCYTES % (AUTO) 29.8 %; MEAN CORPUSCULAR HEMOGLOBIN 28.8 pg (27.0-31.0); MEAN CORPUSCULAR HGB CONC 31.6 g/dL (32.0-36.0); MEAN CORPUSCULAR VOLUME 91.1 fL (80.0-94.0); MEAN PLATELET VOLUME 8.5 fL (7.4-11.4); MONOCYTES # (AUTO) 0.6 10^3/uL (0.0-1.0); NEUTROPHILS # (AUTO) 2.5 10^3/uL (1.5-6.6); NEUTROPHILS % (AUTO) 56.5 %; PLT - PLATELET COUNT 282 10^3/uL (130-450); RED BLOOD COUNT 3.58 10^6/uL (4.70-6.10); RED CELL DISTRIBUTION WIDTH 14.6 % (12.0-15.0); WHITE BLOOD COUNT 4.4 x10^3/uL (4.8-10.8)
[2020-08-24 05:38] LABS: CALCIUM 8.2 mg/dL (8.5-10.3); CREATININE 1.4 mg/dL (0.6-1.2); MAGNESIUM 1.7 mg/dL (1.7-2.8)
[2020-08-24] MEDS: FORMOTEROL FUMARATE NEB 20 MCG/2 ML INH SCH (07:55)
[2020-08-24] MEDS: MAGNESIUM OXIDE 400 MG TABLET PO SCH (09:12)
[2020-08-24] MEDS: METOPROLOL SUCCINATE 25 MG TABLET PO SCH (09:12)
[2020-08-24] MEDS: TAMSULOSIN 0.4 MG CAPSULE PO SCH (09:12)
[2020-08-24] MEDS: THIAMINE 100 MG TABLET PO SCH (09:12)
--- NOTE | 2020-08-24 10:58 | PROVIDER PROGRESS NOTE ---
Subjective - Prog Note Date Prog Note Date: 08/24/20 - Subjective Subjective: Reports feeling well. Complains of left hip pain that is chronic. He still feels confused at times. He is looking forward to getting out of the hospital. Denies abdominal pain. Current Medications - Current Medications Current Medications: Active Medications Aspirin (Aspirin Ec 81 Mg Tablet) 81 mg PO DAILY [facility] Last Admin: 08/23/20 09:13 Dose: 81 mg Documented by: Formoterol Fumarate (Formoterol Fumarate Neb 20 Mcg/2 Ml) 20 mcg INH RTBID [facility] Last Admin: 08/24/20 07:55 Dose: 20 mcg Documented by: Nafcillin Sodium 2 gm/ Sodium (Chloride) 100 mls @ 100 mls/hr IV Q4H [facility] Last Admin: 08/24/20 06:31 Dose: 100 mls/hr Documented by: Magnesium Oxide (Magnesium Oxide 400 Mg Tablet) 400 mg PO DAILYWM [facility] Last Admin: 08/24/20 09:12 Dose: 400 mg Documented by: Metoprolol Succinate (Metoprolol Succinate 25 Mg Tablet) 25 mg PO DAILY [facility] Last Admin: 08/24/20 09:12 Dose: 25 mg Documented by: Ondansetron HCl (Ondansetron 4 Mg/2 Ml Vial) 4 mg IVP Q6HR PRN PRN Reason: Nausea / Vomiting Sodium Chloride (Sodium Chloride Flush 0.9% 10 Ml Syringe) 10 ml IVP PRN PRN PRN Reason: NEEDED PER PROVIDER ORDERS Last Admin: 08/20/20 14:31 Dose: 10 ml Documented by: Sodium Chloride (Sodium Chloride Flush 0.9% 10 Ml Syringe) 10 ml IVP 0100,0900,1700 [facility] Last Admin: 08/24/20 09:12 Dose: 10 ml Documented by: Tamsulosin HCl (Tamsulosin 0.4 Mg Capsule) 0.4 mg PO DAILY [facility] Last Admin: 08/24/20 09:12 Dose: 0.4 mg Documented by: Thiamine HCl (Thiamine 100 Mg Tablet) 100 mg PO DAILY [facility] Last Admin: 08/24/20 09:12 Dose: 100 mg Documented by: FLUoxetine [PROzac] 20 mg PO DAILY 01/04/19 Umeclidinium Brm/Vilanterol Tr [Anoro Ellipta 62.5-25 Mcg INH] 1 puffs INH DAILY 01/08/20 Umeclidinium [place] [Incruse Ellipta] 1 puffs INH DAILY 01/08/20 Lactobacillus Acidophilus [Probiotic Acidophilus] 1 tab PO DAILY 08/20/20 Objective - Vital Signs/Intake & Output Reviewed Vital Signs: Yes Vital Signs: Vital Signs x48h Temp Pulse Pulse Resp BP Pulse Ox 08/24/20 07:55 60 14 08/24/20 07:42 36.5 C 55 L 16 145/83 H 99 08/24/20 04:40 36.8 C 58 L 18 144/92 H 98 Intake & Output: Intake & Output 08/21/20 08/22/20 08/23/20 08/24/20 23:59 23:59 23:59 23:59 Intake Total 4324.084 4136.667 4873.751 1467.916 Output Total 4250 3475 2500 2700 Balance 74.084 634.154 5295.751 -1232.084 - Objective General Appearance: positive: No acute distress, Alert Eyes Bilateral: positive: Normal inspection, Conjunctivae nml ENT: positive: ENT inspection nml Neck: positive: Nml inspection Respiratory: positive: No respiratory distress. negative: Wheezes, Rales Cardiovascular: positive: Regular rate & rhythm. negative: Tachycardia Abdomen: positive: Non-tender, No distention. negative: Tenderness Skin: positive: Warm, Dry Extremities: positive: No pedal edema, Other (No left hip tenderness. No erythema or edema.) Neurologic/Psychiatric: positive: Motor nml, Disoriented to time. negative: Disoriented to person, Disoriented to place - Lab Results Fish Bones: 08/24/20 04:44 08/24/20 04:44 Other Labs: Lab Results x24hrs 08/24/20 08/24/20 Range/Units 04:44 04:44 WBC 4.4 L (4.8-10.8) x10^3/uL RBC 3.58 L (4.70-6.10) 10^6/uL Hgb 10.3 L (14.0-18.0) g/dL Hct 32.6 L (42.0-52.0) % MCV 91.1 (80.0-94.0) fL MCH 28.8 (27.0-31.0) pg MCHC 31.6 L (32.0-36.0) g/dL RDW 14.6 (12.0-15.0) % Plt Count 282 (130-450) 10^3/uL MPV 8.5 (7.4-11.4) fL Neut # (Auto) 2.5 (1.5-6.6) 10^3/uL Lymph # (Auto) 1.3 L (1.5-3.5) 10^3/uL [place] # (Auto) 0.6 (0.0-1.0) 10^3/uL Eos # (Auto) 0.0 (0.0-0.7) 10^3/uL Baso # (Auto) 0.0 (0.0-0.1) 10^3/uL Absolute Nucleated RBC 0.00 x10^3/uL Nucleated RBC % 0.0 /100WBC Sodium 141 (135-145) mmol/L Potassium 3.6 (3.5-5.0) mmol/L Chloride 106 (101-111) mmol/L Carbon Dioxide 26 (21-32) mmol/L Anion Gap 9.0 (6-13) BUN 12 (6-20) mg/dL Creatinine 1.4 H (0.6-1.2) mg/dL Estimated GFR (MDRD) 51 L (>89) Glucose 100 (70-100) mg/dL Calcium 8.2 L (8.5-10.3) mg/dL Magnesium 1.7 (1.7-2.8) mg/dL Total Creatine Kinase 886 H (22-269) IU/L ABX Reporting Has patient been on IV antibiotics over the past 48 hours?: Yes Assessment/Plan - Problem List (1) Altered mental status Impression: Slowly improving. At this point is likely related to his dementia as well as the new stroke. MRI confirmed a new infarct. MRI with contrast was negative for mass. Infectious work-up has been unremarkable and he has remained on antibiotics for his osteomyelitis. As mentioned above, I suspect this is related to his worsening dementia due to stroke. He will need either caregivers or memory care on discharge. Qualifiers: Altered mental status type: disorientation Qualified Code(s): R41.0 - Disorientation, unspecified (2) Cerebrovascular accident (CVA) Impression: MRI confirmed right frontal lobe infarct. His echocardiogram was unremarkable. He is on aspirin. We are still holding statin until his rhabdomyolysis is resolved but this will need to be initiated likely over next few days. (3) Rhabdomyolysis Impression: This is improved. We will discontinue IV fluids. (4) Osteomyelitis of spine Impression: Stable. We have continued nafcillin during this inpatient stay. This will be resumed when he is discharged and he will follow up with infectious disease. (5) Bright red blood per rectum Impression: There have been no further episodes and hemoglobin is stable. Continue to monitor. (6) Urinary retention Impression: Failed a voiding trial and a Elizondo catheter has been placed. He will continue Flomax. He will need outpatient urology follow-up and he will be discharged with a Elizondo catheter. (7) Dementia Impression: Has dementia at baseline and this appears to have been compounded by his stroke. He will need caregivers at home [id number] or a memory care unit. The son prefers memory care unit and we are working closely with social work regarding disposition. (8) Osteonecrosis of left hip Impression: This was evident on the x-ray of the left hip. He will need outpatient follow- up with orthopedic surgery for consideration of surgical intervention. (9) Methamphetamine abuse Impression: Urine toxicology is positive for methamphetamines but he denies use although he is not a reliable historian at this time. (10) COPD (chronic obstructive pulmonary disease) Impression: Stable and not in exacerbation. Continue inhalers.
[2020-08-24] MEDS: ASPIRIN EC 81 MG TABLET PO SCH (11:12)
[2020-08-24] MEDS: amLODIPine 5 MG TABLET PO SCH (17:42)
[2020-08-24] MEDS: SODIUM CHLORIDE FLUSH 0.9% 10 ML SYRINGE IVP PRN ×2 (19:40→19:50)
[2020-08-25] MEDS: SODIUM CHLORIDE FLUSH 0.9% 10 ML SYRINGE IVP PRN (03:40)
[2020-08-25] MEDS: NAFCILLIN 2 GM in SODIUM CHLORIDE 0.9% MINIBAG 100 ML IV SCH ×4 (03:40→15:31)
[2020-08-25] MEDS: FORMOTEROL FUMARATE NEB 20 MCG/2 ML INH SCH ×4 (03:41→19:35)
[2020-08-25] MEDS: SODIUM CHLORIDE FLUSH 0.9% 10 ML SYRINGE IVP SCH ×3 (04:01→15:31)
[2020-08-25 05:52] LABS: BASOPHILS % (AUTO) 0.2 %; HGB - HEMOGLOBIN 10.4 g/dL (14.0-18.0); LYMPHOCYTES # (AUTO) 1.1 10^3/uL (1.5-3.5); LYMPHOCYTES % (AUTO) 23.3 %; MEAN CORPUSCULAR HEMOGLOBIN 28.7 pg (27.0-31.0); MEAN CORPUSCULAR HGB CONC 31.2 g/dL (32.0-36.0); MEAN PLATELET VOLUME 8.2 fL (7.4-11.4); MONOCYTES # (AUTO) 0.6 10^3/uL (0.0-1.0); MONOCYTES % (AUTO) 11.5 %; NEUTROPHILS # (AUTO) 3.1 10^3/uL (1.5-6.6); NEUTROPHILS % (AUTO) 64.2 %; PLT - PLATELET COUNT 272 10^3/uL (130-450); RED BLOOD COUNT 3.62 10^6/uL (4.70-6.10); RED CELL DISTRIBUTION WIDTH 14.6 % (12.0-15.0); WHITE BLOOD COUNT 4.9 x10^3/uL (4.8-10.8)
[2020-08-25 06:06] LABS: CALCIUM 8.3 mg/dL (8.5-10.3); CREATININE 1.2 mg/dL (0.6-1.2); MAGNESIUM 1.9 mg/dL (1.7-2.8)
[2020-08-25] MEDS ORDERED: POTASSIUM CHLORIDE 20 MEQ TABLET PO ONE (07:33)
[2020-08-25] MEDS: ASPIRIN EC 81 MG TABLET PO SCH (09:57)
[2020-08-25] MEDS: MAGNESIUM OXIDE 400 MG TABLET PO SCH (09:58)
[2020-08-25] MEDS: amLODIPine 5 MG TABLET PO SCH (09:58)
[2020-08-25] MEDS: METOPROLOL SUCCINATE 25 MG TABLET PO SCH (09:58)
[2020-08-25] MEDS: TAMSULOSIN 0.4 MG CAPSULE PO SCH (09:58)
[2020-08-25] MEDS: THIAMINE 100 MG TABLET PO SCH (09:59)
--- NOTE | 2020-08-25 15:09 | Discharge Plan ---
Discharge Plan Problem Reviewed?: Yes Disposition: 61 Swing Bed DC/Xfer Condition: Stable No Smoking: If you smoke, Please STOP! Call for help. Follow-up with: Ben Wagner MD [Primary Care Provider] -
--- NOTE | 2020-08-25 15:09 | DISCHARGE SUMMARY ---
"Discharge Summary Admit Date: 08/18/20 Discharge Date: 08/25/20 Discharging Provider: Demetris Valdovinos Primary Care Provider: Ben Wagner Code Status: Attempt Resuscitation Condition at Discharge: Stable Discharge Disposition: 61 Swing Bed DC/Xfer Discharge Facility [facility]: [facility] Swing Bed - DIAGNOSES Admission Diagnoses: Altered mental status Rhabdomyolysis Acute kidney injury Methamphetamine abuse Elevated troponin Leukopenia Anemia Osteomyelitis of the spine, still on IV antibiotics Acute urinary retention BPH Depression COPD without exacerbation Hypertension, uncontrolled Discharge Diagnoses with Status of Each Condition: Altered mental status Cerebrovascular accident Rhabdomyolysis Osteomyelitis of spine Bright red blood per rectum Acute urinary retention Dementia Osteoporosis of left hip With amphetamine abuse COPD without exacerbation - HPI History of Present Illness: Please refer to H&P of Dr. Jerry. In summary, this was a patient who was found at home by his roommate agitated and incoherent. - CONSULTS | PROCEDURES Consultations: PT, OT - HOSPITAL COURSE Hospital Course: He was admitted to the floor for altered mental status and rhabdomyolysis likely secondary to methamphetamine use. He was treated with IV fluids with improvement in his CKs. His mentation improved over the first 48 hours. The patient was no longer altered but was quite confused. We spoke with his son who confirms that he does have dementia at baseline and has had progressive worsening memory loss. MRI of the brain was obtained given his initial presentation and this confirmed a right posterior frontal lobe infarct. The patient was started on aspirin but not a statin due to his rhabdomyolysis. An echocardiogram was unremarkable. Telemetry reveals sinus rhythm throughout his stay. He had no obvious focal deficits. He was continued on nafcillin IV du ring his hospitalization given his osteomyelitis that he was previously being treated for. Given his confusion, it was felt that it was not a safe discharge home as he can be impulsive and has poor safety awareness. Memory care was likely not an option given his ongoing IV antibiotic use. As such, he will be discharged to swing bed for continuation of his IV antibiotics. He also did have urinary retention during this hospitalization and if she required a Elizondo catheter that was placed in the emergency department. We did attempt a voiding trial but this was unsuccessful. He was started on Flomax and a Elizondo catheter was placed once again. He also did have bright red blood per rectum during this hospitalization which resolved spontaneously. He did not have a drop in his hemoglobin. He also complained of left hip pain during this hospitalization and had an x-ray was concerning for osteonecrosis. He will need orthopedic follow- up. - ALLERGIES Allergies/Adverse Reactions: Allergies Allergy/AdvReac Type Severity Reaction Status Date / Time No Known Drug Allergies Allergy Verified 07/08/20 09:55 - MEDICATIONS Home Medications: Ambulatory Orders Medication Instructions Recorded Confirmed FLUoxetine [PROzac] 20 mg PO DAILY 01/04/19 08/26/20 Umeclidinium Brm/Vilanterol Tr 1 puffs INH DAILY 01/08/20 08/26/20 [Anoro Ellipta 62.5-25 Mcg INH] Umeclidinium [place] [Incruse 1 puffs INH DAILY 01/08/20 08/26/20 Ellipta] Lactobacillus Acidophilus 1 tab PO DAILY 08/20/20 08/26/20 [Probiotic Acidophilus] - PHYSICAL EXAM AT DISCHARGE General Appearance: positive: No acute distress, Alert Eyes Bilateral: positive: Normal inspection. negative: Conjunctivae nml ENT: positive: ENT inspection nml Neck: positive: Nml inspection Respiratory: positive: No respiratory distress. negative: Wheezes, Rales Cardiovascular: positive: Regular rate & rhythm. negative: Irregularly irregular, Tachycardia Abdomen: positive: Non-tender, No distention. negative: Tenderness Skin: positive: Warm Extremities: positive: Full ROM, No pedal edema Neurologic/Psychiatric: positive: Disoriented to time, Other (No obvious focal deficits.). negative: Disoriented to person, Disoriented to place Physical Exam Other/Comments: Vital Signs - 24 hr 08/24/20 08/24/20 08/24/20 17:30 19:50 23:52 Temperature 36.8 C 36.7 C Heart Rate Heart Rate [ 56 L 62 60 Brachial] Respiratory 20 16 Rate Blood Pressure 174/92 H [Left Brachial artery] Blood Pressure 164/95 H 144/84 H [Right Brachial artery] Blood Pressure 139/90 H [Right Radial artery] O2 Saturation 96 97 08/25/20 08/25/20 08/25/20 05:00 07:41 09:00 Temperature 36.7 C 36.8 C Heart Rate 60 Heart Rate [ 52 L 56 L Brachial] Respiratory 16 14 16 Rate Blood Pressure 129/86 H [Left Brachial artery] Blood Pressure 142/86 H [Right Brachial artery] Blood Pressure [Right Radial artery] O2 Saturation 97 97 08/25/20 08/25/20 11:26 17:00 Temperature 37.1 C 36.3 C L Heart Rate Heart Rate [ 58 L 54 L Brachial] Respiratory 14 18 Rate Blood Pressure [Left Brachial artery] Blood Pressure 145/95 H 161/97 H [Right Brachial artery] Blood Pressure [Right Radial artery] O2 Saturation 98 100 Oxygen O2 Source Room air - LABS Result Diagrams: 08/25/20 05:42 08/25/20 05:42 - DIAGNOSTIC IMAGING Diagnostic Imaging Results: Final report reviewed Diagnostic Imaging Results Comments: Brain MRI on August 20 revealed tiny foci of subacute infarction can be seen involving the posterior aspect of the right frontal lobe. Extra-axial susceptibility artifact can be seen along the posterior aspect of the left cerebral hemisphere posteriorly and superiorly. 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 However, given the patchy increased T2 weighted hyperintensity, differential diagnosis would also include a low-grade neoplasm. A history of prior use was given an differential diagnosis also includes prior trauma. Brain MRI with contrast on August 21 showed the contrast enhancement a portion of this examination with reference to the brain MRI without contrast 1 day ago reveals no evidence of underlying infection or neoplasm. No vascular normality such as aneurysm or vascular malformation is seen. - FOLLOW UP Follow Up: He will be following up with infectious disease on August 28. - TIME SPENT Time Spent in Discharge (Minutes): 32"
[2020-08-25 21:49] VITALS: BP 137/87
== END 2020-08-25 23:11 | disposition swing bed (61) | DRG 65 ==
LOC: EDUNIT# → ED 19:55 → INTOOBSV 22:35 → OBS 22:35 → MS2 22:35 → UNDOADMOB 22:35 → INTOOBSV 08-25 15:10 → OBSVTOIN 08-25 15:10 → UNDODISIN 08-25 23:11
PROVIDERS: ADMIT Internal Medicine; ATTEND Internal Medicine
DX: I63.9 Cerebral infarction, unspecified (principal); M62.82 Rhabdomyolysis; N17.9 Acute kidney failure, unspecified; M46.24 Osteomyelitis of vertebra, thoracic region; K62.5 Hemorrhage of anus and rectum; R41.0 Disorientation, unspecified; M87.9 Osteonecrosis, unspecified; I20.9 Angina pectoris, unspecified; R64 Cachexia; F15.10 Other stimulant abuse, uncomplicated; R41.89 Other symptoms and signs involving cognitive functions and awareness; R10.31 Right lower quadrant pain; J44.9 Chronic obstructive pulmonary disease, unspecified; F17.210 Nicotine dependence, cigarettes, uncomplicated; Z87.891 Personal history of nicotine dependence; N40.1 Benign prostatic hyperplasia with lower urinary tract symptoms; R33.9 Retention of urine, unspecified; R32 Unspecified urinary incontinence; D64.9 Anemia, unspecified; F03.90 Unspecified dementia, unspecified severity, without behavioral disturbance, psychotic disturbance, mood disturbance, and anxiety; M81.0 Age-related osteoporosis without current pathological fracture; I10 Essential (primary) hypertension; F32.9 Major depressive disorder, single episode, unspecified; F43.10 Post-traumatic stress disorder, unspecified; Z68.27 Body mass index [BMI] 27.0-27.9, adult; Z79.2 Long term (current) use of antibiotics; Z20.822 Contact with and (suspected) exposure to COVID-19; Z79.51 Long term (current) use of inhaled steroids; Z72.89 Other problems related to lifestyle; Z79.899 Other long term (current) drug therapy
CPT/HCPCS: 36415; 51702; 70496; 70498; 70551; 70552; 73502; 80048; 80053; 80061; 81001; 81599; 82140; 82550; 82607; 82746; 82803; 83036; 83540; 83605; 83690; 83735; 84100; 84132; 84443; 84466; 84484; 85025; 85027; 85610; 87040; 87086; 87631; 93005; 93306; 94640; 97116; 97161; 97166; 97530; 97535; 99281; 99285; A9270; A9585; J3411; J7040; J7120; Q9967; 0202U; 80306; 80307; 80320; 80329; 83721; 87045; 87046

== ENCOUNTER 2020-08-25 12:58 | Inpatient (IN) | payer MEDICARE, MEDICAID ==
[2020-08-25] MEDS: NAFCILLIN 2 GM in SODIUM CHLORIDE 0.9% MINIBAG 100 ML IV SCH ×2 (18:59→22:40)
[2020-08-25] MEDS: FORMOTEROL FUMARATE NEB 20 MCG/2 ML INH SCH (19:35)
[2020-08-26] MEDS: ACETAMINOPHEN 325 MG TABLET PO PRN (00:32)
[2020-08-26] MEDS: NAFCILLIN 2 GM in SODIUM CHLORIDE 0.9% MINIBAG 100 ML IV SCH ×6 (03:24→22:56)
[2020-08-26] MEDS: ASPIRIN EC 81 MG TABLET PO SCH (08:30)
[2020-08-26] MEDS: amLODIPine 5 MG TABLET PO SCH (08:31)
[2020-08-26] MEDS: MAGNESIUM OXIDE 400 MG TABLET PO SCH (08:31)
[2020-08-26] MEDS: TAMSULOSIN 0.4 MG CAPSULE PO SCH (08:31)
[2020-08-26] MEDS: METOPROLOL SUCCINATE 25 MG TABLET PO SCH (08:31)
[2020-08-26] MEDS: LACTOBACILLUS RHAMNOSUS GG CAPSULE PO SCH (08:31)
[2020-08-26] MEDS: FLUoxetine 10 MG CAPSULE PO SCH (08:31)
[2020-08-26] MEDS: THIAMINE 100 MG TABLET PO SCH (08:32)
[2020-08-26] MEDS: FORMOTEROL FUMARATE NEB 20 MCG/2 ML INH SCH ×2 (09:10→22:17)
--- NOTE | 2020-08-26 09:38 | PHARMACY PROGRESS NOTE ---
- Best Possible Medication History Admit Date and Time: 08/25/20 1510 Processed by: Pharmacy Medication History completed: Yes Patient Interview: Completed (PATIENT INTERVIEWED BY PHARMACY. PATIENT'S SON CALLED TO VERIFY HOME MEDICATIONS.) As the person ultimately responsible for medication therapy, providers are able to order a medication from an existing home medication list in [facility] via the "Reconcile Routine" prior to Confirmation of that medication by director of sales support. Such practice is discouraged except when the physician, in their clinical judgment, deems that a medical need exists for a medication without regard to previous use.
--- NOTE | 2020-08-26 19:16 | HISTORY & PHYSICAL EXAMINATION ---
Chief Complaint - Chief Complaint Chief Complaint: Confusion History of Present Illness - Admitted From Admitted From:: [facility] inpatient status - History Obtained From Records Reviewed: Yes History obtained from: Patient, EMR Exam Limitations: Patient does have dementia and is a very poor historian. - History of Present Illness HPI Comment/Other: This is 65-year-old male with a past medical history difficult for dementia, hypertension, COPD, BPH and a recent diagnosis of thoracic spine osteomyelitis who is on IV nafcillin. He was admitted to [facility] about 1 week ago for altered mental status and rhabdomyolysis. He was found to have a right frontal lobe infarct. Although his mentation improved, he remained quite disoriented but was improving on a daily basis. The rhabdomyolysis resolved with IV fluids. After he was medically cleared for discharge, disposition was difficult given he is on IV antibiotics and is not safe discharge to home alone given his dementia and poor safety awareness. After discussion with family, decision was made to admit him to swing bed for continuation with IV antibiotics with plan to ultimately discharge to memory care or home with caregivers. The patient reports feeling well. He still feels confused but feels like he is improving on a daily basis. Denies chest pain or dyspnea. He has been walking with a walker. He does complain of left hip pain and left shoulder pain both of which are chronic for him. History - Past Medical History Cardiovascular: reports: Hypertension, Angina Respiratory: reports: COPD, Other Neuro: reports: None Endocrine/Autoimmune: reports: None GI: reports: Colon polyps, Hepatitis : reports: Retention, Incontinence HEENT: reports: None Psych: reports: Depression, Post traumatic stress disorder Musculoskeletal: reports: Osteoarthritis Derm: reports: None MRSA Hx?: No - Past Surgical History General: reports: Other HEENT: reports: Tonsil/Adenoidectomy - Family & Social History Family History Comment/Other: He states his parents both had lung problems. They were both smokers. He believes his father may have had cancer. Living arrangement: At home Living Situation: With friend(s) Social History Notes: He lives with a roommate. He quit smoking a few months ago. He has been smoking a pack a day on and off for most of his life. His toxicology during this admission was positive for methamphetamines. He denies this. - POLST Patient has POLST: No POLST Status: Full Code Meds/Allgy - Home Medications Home Medications: Ambulatory Orders Medication Instructions Recorded Confirmed FLUoxetine [PROzac] 20 mg PO DAILY 01/04/19 08/26/20 Umeclidinium Brm/Vilanterol Tr 1 puffs INH DAILY 01/08/20 08/26/20 [Anoro Ellipta 62.5-25 Mcg INH] Umeclidinium [place] [Incruse 1 puffs INH DAILY 01/08/20 08/26/20 Ellipta] Lactobacillus Acidophilus 1 tab PO DAILY 08/20/20 08/26/20 [Probiotic Acidophilus] - Allergies Allergies/Adverse Reactions: Allergies Allergy/AdvReac Type Severity Reaction Status Date / Time No Known Drug Allergies Allergy Verified 07/08/20 09:55 Review of Systems - Constitutional Constitutional: denies: Fever, Chills - Eyes Eyes: denies: Blurred vision - Cardiovascular Cariovascular: denies: Chest pain, Edema - Respiratory Respiratory: denies: SOB at rest, SOB with exertion - Gastrointestinal Gastrointestinal: denies: Abdominal pain, Nausea, Vomiting - Genitourinary Genitourinary: denies: Hematuria - Musculoskeletal Musculoskeletal: reports: Limited range of motion, Joint pain - Integumentary Integumentary: denies: Rash - Neurological Neurological: reports: Memory problems. denies: General weakness - Hematologic/Lymphatic Hematologic/Lymphatic: denies: Bleeding tendencies - All Other Systems All Other Systems: reports: Reviewed and negative Prior Level of Functionality: He is ambulating with a walker independently. Exam - Vital Signs Reviewed Vital Signs: Yes - Physical Exam General Appearance: positive: No acute distress, Alert Eyes Bilateral: positive: Normal inspection, Conjunctivae nml ENT: positive: ENT inspection nml Neck: positive: Nml inspection Respiratory: positive: No respiratory distress. negative: Wheezes, Rales Cardiovascular: positive: Regular rate & rhythm, No murmur. negative: Tachycardia Abdomen: positive: Non-tender, No distention. negative: Tenderness Skin: positive: Warm, Dry Extremities: positive: No pedal edema Neurologic/Psychiatric: positive: Disoriented to time, Other (No focal deficits.). negative: Disoriented to person, Disoriented to place Conclusion/Plan - Problem List (1) Osteomyelitis of spine Conclusion/Plan: He will be admitted to swing bed for continuation of antibiotics for his thoracic spine osteomyelitis. He will keep him on nafcillin 2 g IV every 4 hours. He has scheduled follow-up with infectious disease through telehealth on August 28. We will repeat CBC, BMP, ESR, CRP on 27 August prior to this appointment. (2) Cerebrovascular accident (CVA) Conclusion/Plan: MRI did confirm a posterior right frontal lobe infarct. Fortunately, his not to have any focal motor deficits. I suspect that the stroke may have contributed to his confusion given he already has dementia at baseline. He is on aspirin which we will resume here. We will check CKs on with other labs and if they are improving, we will start him on a statin then. (3) Dementia Conclusion/Plan: He has dementia at baseline this is likely compounded by his recent stroke. He has been improving on a daily basis. We are hopeful that his memory will improve while he is here with us. He will likely either need memory care on discharge or to be discharged home with caregivers. (4) BPH (benign prostatic hyperplasia) Conclusion/Plan: We have resumed his Flomax. He does have urinary retention and a Elizondo catheter is in place. He will need urology follow-up. (5) COPD (chronic obstructive pulmonary disease) Conclusion/Plan: Stable and not in exacerbation. We will continue his home inhalers. (6) Hypertension Conclusion/Plan: We will continue his antihypertensives with amlodipine and metoprolol. (7) Osteonecrosis of left hip Conclusion/Plan: He had been complaining of left hip pain and x-ray was concerning for osteonecrosis of the left hip. He will need to follow-up with orthopedic surgery for consideration of possible intervention. This will likely need to happen after he completes treatment for his osteomyelitis. (8) Urinary retention Conclusion/Plan: He does have urinary retention. We will continue him on Flomax and a Elizondo catheter is already in place. He will need urology follow. Core Measures - Anticipated LOS I expect patient to be DC'd or transferred within 96 hours.: Yes - Issues Hospital Issues and Management Plan: 65-year-old male with a recent stroke and worsening of his dementia who is on IV antibiotics for thoracic spine osteomyelitis. He will be admitted to our swing bed for continuation of his IV antibiotics. - DVT/VTE - Prophylaxis VTE/DVT Device ordered at admit?: Yes VTE/DVT Prophylaxis med ordered at admit?: Yes
[2020-08-27] MEDS: NAFCILLIN 2 GM in SODIUM CHLORIDE 0.9% MINIBAG 100 ML IV SCH ×6 (03:40→23:38)
[2020-08-27] MEDS: ACETAMINOPHEN 325 MG TABLET PO PRN (03:48)
[2020-08-27 05:54] LABS: BASOPHILS % (AUTO) 0.3 %; HGB - HEMOGLOBIN 10.9 g/dL (14.0-18.0); LYMPHOCYTES # (AUTO) 1.2 10^3/uL (1.5-3.5); LYMPHOCYTES % (AUTO) 13.6 %; MEAN CORPUSCULAR HEMOGLOBIN 28.9 pg (27.0-31.0); MEAN CORPUSCULAR HGB CONC 31.7 g/dL (32.0-36.0); MEAN CORPUSCULAR VOLUME 91.2 fL (80.0-94.0); MEAN PLATELET VOLUME 8.5 fL (7.4-11.4); MONOCYTES % (AUTO) 10.8 %; NEUTROPHILS # (AUTO) 6.8 10^3/uL (1.5-6.6); NEUTROPHILS % (AUTO) 74.8 %; PLT - PLATELET COUNT 317 10^3/uL (130-450); RED BLOOD COUNT 3.77 10^6/uL (4.70-6.10); RED CELL DISTRIBUTION WIDTH 14.9 % (12.0-15.0); WHITE BLOOD COUNT 9.1 x10^3/uL (4.8-10.8)
[2020-08-27 06:05] LABS: CALCIUM 8.5 mg/dL (8.5-10.3); CREATININE 1.5 mg/dL (0.6-1.2); CRP - C-REACTIVE PROTEIN 7.6 mg/dL (0-1.0)
[2020-08-27] MEDS ORDERED: SODIUM CHLORIDE 0.9% 1,000 ML IV SCH (08:00)
[2020-08-27] MEDS: FLUoxetine 10 MG CAPSULE PO SCH (09:09)
[2020-08-27] MEDS: MAGNESIUM OXIDE 400 MG TABLET PO SCH (09:09)
[2020-08-27] MEDS: amLODIPine 5 MG TABLET PO SCH (09:09)
[2020-08-27] MEDS: ASPIRIN EC 81 MG TABLET PO SCH (09:10)
[2020-08-27] MEDS: TAMSULOSIN 0.4 MG CAPSULE PO SCH (09:10)
[2020-08-27] MEDS: THIAMINE 100 MG TABLET PO SCH (09:10)
[2020-08-27] MEDS: LACTOBACILLUS RHAMNOSUS GG CAPSULE PO SCH (09:10)
[2020-08-27] MEDS: METOPROLOL SUCCINATE 25 MG TABLET PO SCH (09:10)
[2020-08-27] MEDS: ENOXAPARIN 40 MG/0.4 ML SYRINGE SUBQ SCH (09:15)
[2020-08-27] MEDS: FORMOTEROL FUMARATE NEB 20 MCG/2 ML INH SCH ×2 (09:50→18:10)
[2020-08-28] MEDS: NAFCILLIN 2 GM in SODIUM CHLORIDE 0.9% MINIBAG 100 ML IV SCH ×6 (03:53→23:42)
[2020-08-28] MEDS: FORMOTEROL FUMARATE NEB 20 MCG/2 ML INH SCH ×2 (07:37→20:02)
[2020-08-28] MEDS: MAGNESIUM OXIDE 400 MG TABLET PO SCH (07:46)
[2020-08-28] MEDS: amLODIPine 5 MG TABLET PO SCH (08:58)
[2020-08-28] MEDS: LACTOBACILLUS RHAMNOSUS GG CAPSULE PO SCH (08:58)
[2020-08-28] MEDS: TAMSULOSIN 0.4 MG CAPSULE PO SCH (08:58)
[2020-08-28] MEDS: THIAMINE 100 MG TABLET PO SCH (08:58)
[2020-08-28] MEDS: ASPIRIN EC 81 MG TABLET PO SCH (08:58)
[2020-08-28] MEDS: METOPROLOL SUCCINATE 25 MG TABLET PO SCH (08:58)
[2020-08-28] MEDS: FLUoxetine 10 MG CAPSULE PO SCH (08:58)
[2020-08-28] MEDS: ENOXAPARIN 40 MG/0.4 ML SYRINGE SUBQ SCH (08:58)
[2020-08-29] MEDS: NAFCILLIN 2 GM in SODIUM CHLORIDE 0.9% MINIBAG 100 ML IV SCH ×6 (03:45→23:56)
[2020-08-29] MEDS: FORMOTEROL FUMARATE NEB 20 MCG/2 ML INH SCH ×2 (09:03→17:58)
[2020-08-29] MEDS: ASPIRIN EC 81 MG TABLET PO SCH (10:14)
[2020-08-29] MEDS: MAGNESIUM OXIDE 400 MG TABLET PO SCH (10:14)
[2020-08-29] MEDS: TAMSULOSIN 0.4 MG CAPSULE PO SCH (10:14)
[2020-08-29] MEDS: LACTOBACILLUS RHAMNOSUS GG CAPSULE PO SCH (10:14)
[2020-08-29] MEDS: THIAMINE 100 MG TABLET PO SCH (10:14)
[2020-08-29] MEDS: amLODIPine 5 MG TABLET PO SCH (10:15)
[2020-08-29] MEDS: FLUoxetine 10 MG CAPSULE PO SCH (10:15)
[2020-08-29] MEDS: ENOXAPARIN 40 MG/0.4 ML SYRINGE SUBQ SCH (10:16)
--- NOTE | 2020-08-29 14:40 | PROVIDER PROGRESS NOTE ---
Assessment/Plan - Problem List (1) Osteomyelitis of spine Assessment/Plan: This was diagnosed weeks ago and is getting management by ID, Dr Brock. He is here in SNF for several more weeks of iv antibx. He failed treatment administered at his home, because he resumed Meth use, became obtunded (was found by his roommate) and needed admission for rhabdo and meth withdrawal, was diagnosed with an acute stroke and urinary retention as well. (2) Receiving intravenous antibiotic treatment as outpatient Assessment/Plan: He is back on his outpatient regimen of iv Nafcillin for treating the spinal osteomyelitis, since being admitted to SNF here ([facility] swing bed) several days ago. Yesterday, he had a telemedicine appointment with his ID Provider, Dr Stefan Brock. His son came into patient's room and attended as well (set up the laptop, etc). The summary of the visit was FAXd to and will be scanned into this EMR. Recommendations were: 1) Get CRP and ESR before 09/01/20. I will order for tomorrow a.m. 08/30/20. These results need to be FAXed to Dr Brock at [phone]. 2) Spine CT w/out contrast on 08/31/20, to be done here, then images need to be pushed to Prov Ezio 3) Do weekly BMP, CBC w/ diff, ESR and CRP labs. I will order these next for 09/02/20. These need to be FAXed to Dr Brock also. 4) Continue Nafcillin 2 gm iv q4h. Cefazolin was used before, it caused leukopenia, prompting the change to Nafcillin, per Dr Brock. 5) This dose of Nafcillin (which has 1.8 gm of sodium daily) can cause leg swelling, cough or SOB, per Dr Brock. I will order RN to report any of these findings to the provider here. I will order daily weights as well. (3) Cerebrovascular accident (CVA) MRI did confirm a posterior right frontal lobe infarct when he was a recent inpatient. Fortunately, his not to have any focal motor deficits. The stroke may have contributed to his confusion given he already has dementia at baseline. Conitnue daily aspirin. Will check CK tomorrrow with other labs and if CK has improved, we will restart him on his statin then. (4) Dementia He has dementia at baseline this is likely compounded by his recent stroke. He improved on a daily basis as an inpatient. Perhaps his memory will improve while he is here with us. He will likely either need memory care on discharge or to be discharged home with caregivers. (5) BPH (benign prostatic hyperplasia) He is on his Flomax. He does have urinary retention and a chronic Elizondo catheter is in place. He will need urology follow-up. (6) COPD (chronic obstructive pulmonary disease) Stable and not in exacerbation. We will continue his home inhalers. (7) Hypertension We will continue his antihypertensives with amlodipine and metoprolol. (8) Osteonecrosis of left hip He had been complaining of left hip pain and x-ray was concerning for osteonecrosis of the left hip. He will need to follow-up with orthopedic surgery for consideration of possible hip surgery. He is aware of this need. This will likely need to happen after he completes treatment for his osteomyelitis. (9) Urinary retention He does have urinary retention. We will continue him on Flomax and a Elizondo catheter is already in place. He will need urology follow. (10) Hx of Meth abuse As per Hx. Meth was present on his tox screen during the last recent admission. - Current Meds Current Meds: Current Medications Generic Name Dose Route Start Last Admin Trade Name Freq PRN Reason Stop Dose Admin Acetaminophen 650 mg 08/25/20 15:10 08/27/20 03:48 Acetaminophen 325 Mg Tablet PO 650 mg Q4HR PRN Administration Pain 1 to 4 Amlodipine Besylate 5 mg 08/26/20 09:00 08/29/20 10:15 Amlodipine 5 Mg Tablet PO 5 mg DAILY DAVID Administration Aspirin 81 mg 08/26/20 09:00 08/29/20 10:14 Aspirin Ec 81 Mg Tablet PO 81 mg DAILY DAVID Administration Enoxaparin Sodium 40 mg 08/27/20 09:00 08/29/20 10:16 Enoxaparin 40 Mg/0.4 Ml Syringe SUBQ 40 mg DAILY DAVID Administration Fluoxetine HCl 20 mg 08/26/20 09:00 08/29/20 10:15 Fluoxetine 10 Mg Capsule PO 20 mg DAILY DAVID Administration Formoterol Fumarate 20 mcg 08/25/20 19:00 08/29/20 09:03 Formoterol Fumarate Neb 20 Mcg/2 Ml INH 20 mcg RTBID DAVID Administration Nafcillin Sodium 2 gm/ Sodium 100 mls @ 100 mls/hr 08/25/20 19:00 08/29/20 13:32 Chloride IV 100 mls/hr Q4H DAVID Administration Lactobacillus Rhamnosus 1 cap 08/26/20 09:00 08/29/20 10:14 Lactobacillus Rhamnosus Gg Capsule PO 1 cap DAILY DAVID Administration Magnesium Oxide 400 mg 08/26/20 08:00 08/29/20 10:14 Magnesium Oxide 400 Mg Tablet PO 400 mg DAILYWM DAVID Administration Tamsulosin HCl 0.4 mg 08/26/20 09:00 08/29/20 10:14 Tamsulosin 0.4 Mg Capsule PO 0.4 mg DAILY DAVID Administration Thiamine HCl 100 mg 08/26/20 09:00 08/29/20 10:14 Thiamine 100 Mg Tablet PO 100 mg DAILY DAVID Administration - Lab Result Fish Bone Diagrams: 08/27/20 04:56 08/27/20 04:56 - Additional Planning My Orders: My Active Orders 08/29/20 11:05 Metoprolol Succinate [Toprol Xl] 25 mg PO DAILY 08/29/20 12:29 Daily Weight [RC] 0600 08/29/20 12:30 Miscellaenous Nursing Order [RC] DAILY 08/31/20 08:00 THORACIC SPINE WO [CT] Routine 09/02/20 BMP - BASIC METABOLIC PANEL [CHEM] Routine CBC - COMP BLD CT W/AUTO DIFF [HEME] Routine CRP - C-REACTIVE PROTEIN [CHEM] Routine ESR- ERYTHROCYTE SEDIMENT RATE [HEME] Routine Subjective - Subjective Patient Reports: Resting Comfortably, No Complaints Nursing Reports: Other (Still has a Elizondo) Objective Vital Signs: Vital Signs - 24 hr 08/28/20 08/28/20 08/29/20 17:00 20:03 08:19 Temperature 37.0 C 36.6 C Heart Rate 64 Heart Rate [ 64 52 L Brachial] Respiratory 16 16 18 Rate Blood Pressure 130/99 H 134/85 H [Left] O2 Saturation 100 99 08/29/20 09:03 Temperature Heart Rate 67 Heart Rate [ Brachial] Respiratory 16 Rate Blood Pressure [Left] O2 Saturation Oxygen O2 Source Room air I&O (Last 24 Hrs): Intake and Output Totals x24h 08/27/20 08/28/2021 23:59 23:59 23:59 Intake Total 3580 7550 780 Output Total 4835 6386 8025 Balance 980 -805 -1085 General: Alert, Oriented x3, Other (Thin, has temporal wasting and sunken eyes) HEENT: Mucous membr. moist/pink, Other (Edentulous) Neck: Supple, No JVD Neuro: Alert, Non Focal Cardiovascular: Regular rate, No murmurs Respiratory: No respiratory distress, Breath sounds nml Abdomen: Normal bowel sounds, Soft Genitourinary: Other (Has Elizondo, draining clear yellow fluid in bag) Extremities: No clubbing, No edema, Other (L hip tender) - Results Results: Laboratory Results WBC 9.1 x10^3/uL (4.8-10.8) 08/27/20 04:56 RBC 3.77 10^6/uL (4.70-6.10) L 08/27/20 04:56 Hgb 10.9 g/dL (14.0-18.0) L 08/27/20 04:56 Hct 34.4 % (42.0-52.0) L 08/27/20 04:56 MCV 91.2 fL (80.0-94.0) 08/27/20 04:56 MCH 28.9 pg (27.0-31.0) 08/27/20 04:56 MCHC 31.7 g/dL (32.0-36.0) L 08/27/20 04:56 RDW 14.9 % (12.0-15.0) 08/27/20 04:56 Plt Count 317 10^3/uL (130-450) 08/27/20 04:56 MPV 8.5 fL (7.4-11.4) 08/27/20 04:56 Neut # (Auto) 6.8 10^3/uL (1.5-6.6) H 08/27/20 04:56 Lymph # (Auto) 1.2 10^3/uL (1.5-3.5) L 08/27/20 04:56 Aurora # (Auto) 1.0 10^3/uL (0.0-1.0) 08/27/20 04:56 Eos # (Auto) 0.0 10^3/uL (0.0-0.7) 08/27/20 04:56 Baso # (Auto) 0.0 10^3/uL (0.0-0.1) 08/27/20 04:56 Absolute Nucleated RBC 0.00 x10^3/uL 08/27/20 04:56 Nucleated RBC % 0.0 /100WBC 08/27/20 04:56 ESR 53 mm/Hr (0-20) H 08/27/20 04:56 Sodium 138 mmol/L (135-145) 08/27/20 04:56 Potassium 3.5 mmol/L (3.5-5.0) 08/27/20 04:56 Chloride 106 mmol/L (101-111) 08/27/20 04:56 Carbon Dioxide 23 mmol/L (21-32) 08/27/20 04:56 Anion Gap 9.0 (6-13) 08/27/20 04:56 BUN 18 mg/dL (6-20) 08/27/20 04:56 Creatinine 1.5 mg/dL (0.6-1.2) H 08/27/20 04:56 Estimated GFR (MDRD) 47 (>89) L 08/27/20 04:56 Glucose 107 mg/dL (70-100) H 08/27/20 04:56 Calcium 8.5 mg/dL (8.5-10.3) 08/27/20 04:56 Total Creatine Kinase 264 IU/L (22-269) 08/27/20 04:56 C-Reactive Protein 7.6 mg/dL (0-1.0) H 08/27/20 04:56 - Procedures Procedures: Procedures ENDOSC POLYPECTOMY OF LG INTEST (02/14/15)
[2020-08-30] MEDS: NAFCILLIN 2 GM in SODIUM CHLORIDE 0.9% MINIBAG 100 ML IV SCH ×6 (03:50→23:15)
[2020-08-30 05:48] LABS: CRP - C-REACTIVE PROTEIN 3.5 mg/dL (0-1.0)
[2020-08-30] MEDS: FORMOTEROL FUMARATE NEB 20 MCG/2 ML INH SCH ×2 (07:30→19:10)
[2020-08-30] MEDS: MAGNESIUM OXIDE 400 MG TABLET PO SCH (07:54)
[2020-08-30] MEDS: THIAMINE 100 MG TABLET PO SCH (07:55)
[2020-08-30] MEDS: FLUoxetine 10 MG CAPSULE PO SCH (07:55)
[2020-08-30] MEDS: amLODIPine 5 MG TABLET PO SCH (07:55)
[2020-08-30] MEDS: LACTOBACILLUS RHAMNOSUS GG CAPSULE PO SCH (07:55)
[2020-08-30] MEDS: TAMSULOSIN 0.4 MG CAPSULE PO SCH (07:55)
[2020-08-30] MEDS: ASPIRIN EC 81 MG TABLET PO SCH (07:55)
[2020-08-30] MEDS: METOPROLOL SUCCINATE 25 MG TABLET PO SCH (07:56)
[2020-08-30] MEDS: ENOXAPARIN 40 MG/0.4 ML SYRINGE SUBQ SCH (07:59)
[2020-08-31] MEDS: NAFCILLIN 2 GM in SODIUM CHLORIDE 0.9% MINIBAG 100 ML IV SCH ×6 (03:57→23:03)
[2020-08-31] MEDS ORDERED: SODIUM CHLORIDE 0.9% 500 ML IV PRN (05:30)
[2020-08-31] MEDS: SODIUM CHLORIDE FLUSH 0.9% 10 ML SYRINGE IVP PRN ×2 (05:31→07:38)
[2020-08-31 06:08] LABS: CALCIUM 8.4 mg/dL (8.5-10.3); CREATININE 1.3 mg/dL (0.6-1.2)
[2020-08-31] MEDS ORDERED: IOVERSOL 320 100 ML VIAL IVP ONE ×2 (06:31→07:16)
[2020-08-31] MEDS: METOPROLOL SUCCINATE 25 MG TABLET PO SCH (07:38)
[2020-08-31] MEDS: FLUoxetine 10 MG CAPSULE PO SCH (07:43)
[2020-08-31] MEDS: LACTOBACILLUS RHAMNOSUS GG CAPSULE PO SCH (07:44)
[2020-08-31] MEDS: ASPIRIN EC 81 MG TABLET PO SCH (07:44)
[2020-08-31] MEDS: THIAMINE 100 MG TABLET PO SCH (07:44)
[2020-08-31] MEDS: TAMSULOSIN 0.4 MG CAPSULE PO SCH (07:45)
[2020-08-31] MEDS: MAGNESIUM OXIDE 400 MG TABLET PO SCH (07:45)
[2020-08-31] MEDS: amLODIPine 5 MG TABLET PO SCH (07:45)
[2020-08-31] MEDS: ENOXAPARIN 40 MG/0.4 ML SYRINGE SUBQ SCH (07:47)
[2020-08-31] MEDS: FORMOTEROL FUMARATE NEB 20 MCG/2 ML INH SCH ×2 (07:50→19:29)
--- NOTE | 2020-08-31 08:33 | CT Report ---
PROCEDURE: THORACIC SPINE W INDICATIONS: osteomyelitis CONTRAST: IV CONTRAST: Optiray 320 ml: 100 PO CONTRAST: *NO PO CONTRAST TECHNIQUE: After the administration of intravenous Isovue contrast, 3 mm thick sections acquired through the lev els of interest. Sagittal and coronal reformats were then constructed. For radiation dose reduction, the following was used: automated exposure control, adjustment of mA and/or kV according to patient size. COMPARISON: 06/22/2020 FINDINGS: Image quality: Excellent. Bones: Degenerative changes are seen throughout, with disc space narrowing and endplate irregularity with sclerosis and osteophyte formation, which is most prominent at C5-C6, C6-C7, and T7-T8, T9-T10, and T12-L1. Relatively prominent bridging endplate osteophytes are seen on both the left and on the right at the T7-T8 level. At the T7-T8 level, the degree of endplate sclerosis and irregularity has clearly progre ssed compared to the 06/22/2020 examination. Mild dextroconvex scoliotic curvature is seen. No significant AP alignment abnormality can be seen. No fractures or dislocations can be seen. No suspicious lytic or blastic lesions are seen. Soft tissues: Mild generalized soft tissue swelling can be seen surrounding the T7-T8 level. Emphysematous changes are seen. The visualized mediastinum is unremarkable. A left-sided central line is seen, with the tip within the inferior aspect of the superior vena cava. IMPRESSION: These imaging findings are suspicious for development of osteomyelitis of the T7-T8 level, with focal interval progression of endplate irregularity and sclerosis since the relatively recent examination dated 06/22/2020. Surrounding soft tissue swelling can be seen. If it would be helpful for clinical management decision making, please consider a dedicated thoracic MRI (without and with contrast) for further evaluation (assuming that there is no contraindication). Incidental note is made of: Emphysematous change Left-sided central line Reviewed by: Kumar Butt MD on 08/31/2020 7:31 AM [facility] Approved by: Kumar Butt MD on 08/31/2020 7:31 AM [facility] Station ID: [id number]
[2020-09-01] MEDS: NAFCILLIN 2 GM in SODIUM CHLORIDE 0.9% MINIBAG 100 ML IV SCH ×6 (05:13→23:38)
[2020-09-01] MEDS: FORMOTEROL FUMARATE NEB 20 MCG/2 ML INH SCH ×2 (08:02→18:37)
[2020-09-01] MEDS: ASPIRIN EC 81 MG TABLET PO SCH (08:53)
[2020-09-01] MEDS: THIAMINE 100 MG TABLET PO SCH (08:53)
[2020-09-01] MEDS: FLUoxetine 10 MG CAPSULE PO SCH (08:54)
[2020-09-01] MEDS: LACTOBACILLUS RHAMNOSUS GG CAPSULE PO SCH (08:54)
[2020-09-01] MEDS: ENOXAPARIN 40 MG/0.4 ML SYRINGE SUBQ SCH (08:54)
[2020-09-01] MEDS: METOPROLOL SUCCINATE 25 MG TABLET PO SCH (08:54)
[2020-09-01] MEDS: amLODIPine 5 MG TABLET PO SCH (08:54)
[2020-09-01] MEDS: TAMSULOSIN 0.4 MG CAPSULE PO SCH (08:55)
[2020-09-01] MEDS: MAGNESIUM OXIDE 400 MG TABLET PO SCH (08:57)
[2020-09-01] MEDS: SODIUM CHLORIDE FLUSH 0.9% 10 ML SYRINGE IVP PRN (11:48)
[2020-09-01] MEDS: ACETAMINOPHEN 325 MG TABLET PO PRN ×2 (15:48→20:00)
[2020-09-02] MEDS: NAFCILLIN 2 GM in SODIUM CHLORIDE 0.9% MINIBAG 100 ML IV SCH ×6 (04:27→23:37)
[2020-09-02] MEDS: SODIUM CHLORIDE FLUSH 0.9% 10 ML SYRINGE IVP PRN ×3 (04:27→20:32)
[2020-09-02 05:09] LABS: BASOPHILS % (AUTO) 0.9 %; EOSINOPHILS % (AUTO) 0.9 %; HGB - HEMOGLOBIN 10.2 g/dL (14.0-18.0); LYMPHOCYTES # (AUTO) 1.1 10^3/uL (1.5-3.5); LYMPHOCYTES % (AUTO) 23.4 %; MEAN CORPUSCULAR HEMOGLOBIN 29.1 pg (27.0-31.0); MEAN CORPUSCULAR HGB CONC 31.2 g/dL (32.0-36.0); MEAN CORPUSCULAR VOLUME 93.4 fL (80.0-94.0); MEAN PLATELET VOLUME 8.3 fL (7.4-11.4); MONOCYTES # (AUTO) 0.6 10^3/uL (0.0-1.0); MONOCYTES % (AUTO) 13.2 %; NEUTROPHILS # (AUTO) 2.9 10^3/uL (1.5-6.6); NEUTROPHILS % (AUTO) 61.2 %; PLT - PLATELET COUNT 361 10^3/uL (130-450); RED CELL DISTRIBUTION WIDTH 15.7 % (12.0-15.0); WHITE BLOOD COUNT 4.7 x10^3/uL (4.8-10.8)
[2020-09-02 05:27] LABS: CALCIUM 8.7 mg/dL (8.5-10.3); CREATININE 1.2 mg/dL (0.6-1.2); CRP - C-REACTIVE PROTEIN 2.2 mg/dL (0-1.0)
[2020-09-02] MEDS ORDERED: SODIUM CHLORIDE FLUSH 0.9% 10 ML SYRINGE IVP PRN (05:58)
[2020-09-02] MEDS: FORMOTEROL FUMARATE NEB 20 MCG/2 ML INH SCH ×2 (08:50→21:23)
[2020-09-02] MEDS: ACETAMINOPHEN 325 MG TABLET PO PRN ×3 (09:16→20:32)
[2020-09-02] MEDS: LACTOBACILLUS RHAMNOSUS GG CAPSULE PO SCH (09:17)
[2020-09-02] MEDS: polyethylene glycoL 3350 17 GM PACKET PO PRN (09:17)
[2020-09-02] MEDS: ASPIRIN EC 81 MG TABLET PO SCH (09:17)
[2020-09-02] MEDS: FLUoxetine 10 MG CAPSULE PO SCH (09:17)
[2020-09-02] MEDS: MAGNESIUM OXIDE 400 MG TABLET PO SCH (09:17)
[2020-09-02] MEDS: TAMSULOSIN 0.4 MG CAPSULE PO SCH (09:17)
[2020-09-02] MEDS: THIAMINE 100 MG TABLET PO SCH (09:17)
[2020-09-02] MEDS: amLODIPine 5 MG TABLET PO SCH (09:17)
[2020-09-02] MEDS: ENOXAPARIN 40 MG/0.4 ML SYRINGE SUBQ SCH (09:18)
[2020-09-02] MEDS: METOPROLOL SUCCINATE 25 MG TABLET PO SCH (09:18)
[2020-09-03] MEDS: NAFCILLIN 2 GM in SODIUM CHLORIDE 0.9% MINIBAG 100 ML IV SCH ×6 (04:00→23:31)
[2020-09-03] MEDS: FORMOTEROL FUMARATE NEB 20 MCG/2 ML INH SCH ×2 (07:40→19:11)
[2020-09-03] MEDS: LACTOBACILLUS RHAMNOSUS GG CAPSULE PO SCH (08:26)
[2020-09-03] MEDS: FLUoxetine 10 MG CAPSULE PO SCH (08:26)
[2020-09-03] MEDS: MAGNESIUM OXIDE 400 MG TABLET PO SCH (08:26)
[2020-09-03] MEDS: TAMSULOSIN 0.4 MG CAPSULE PO SCH (08:26)
[2020-09-03] MEDS: ASPIRIN EC 81 MG TABLET PO SCH (08:26)
[2020-09-03] MEDS: METOPROLOL SUCCINATE 25 MG TABLET PO SCH (08:26)
[2020-09-03] MEDS: SODIUM CHLORIDE FLUSH 0.9% 10 ML SYRINGE IVP PRN (08:26)
[2020-09-03] MEDS: amLODIPine 5 MG TABLET PO SCH (08:26)
[2020-09-03] MEDS: THIAMINE 100 MG TABLET PO SCH (08:27)
[2020-09-03] MEDS: ENOXAPARIN 40 MG/0.4 ML SYRINGE SUBQ SCH (08:27)
[2020-09-04] MEDS: NAFCILLIN 2 GM in SODIUM CHLORIDE 0.9% MINIBAG 100 ML IV SCH ×6 (03:34→23:40)
[2020-09-04] MEDS: FORMOTEROL FUMARATE NEB 20 MCG/2 ML INH SCH ×2 (07:44→19:10)
[2020-09-04] MEDS: ENOXAPARIN 40 MG/0.4 ML SYRINGE SUBQ SCH (09:11)
[2020-09-04] MEDS: MAGNESIUM OXIDE 400 MG TABLET PO SCH (09:12)
[2020-09-04] MEDS: LACTOBACILLUS RHAMNOSUS GG CAPSULE PO SCH (09:12)
[2020-09-04] MEDS: METOPROLOL SUCCINATE 25 MG TABLET PO SCH (09:12)
[2020-09-04] MEDS: FLUoxetine 10 MG CAPSULE PO SCH (09:12)
[2020-09-04] MEDS: TAMSULOSIN 0.4 MG CAPSULE PO SCH (09:13)
[2020-09-04] MEDS: amLODIPine 5 MG TABLET PO SCH (09:13)
[2020-09-04] MEDS: ASPIRIN EC 81 MG TABLET PO SCH (09:13)
[2020-09-04] MEDS: THIAMINE 100 MG TABLET PO SCH (09:13)
[2020-09-05] MEDS: NAFCILLIN 2 GM in SODIUM CHLORIDE 0.9% MINIBAG 100 ML IV SCH ×6 (04:16→23:57)
[2020-09-05] MEDS: FORMOTEROL FUMARATE NEB 20 MCG/2 ML INH SCH ×2 (07:29→20:01)
[2020-09-05] MEDS: MAGNESIUM OXIDE 400 MG TABLET PO SCH (07:54)
[2020-09-05] MEDS: SODIUM CHLORIDE FLUSH 0.9% 10 ML SYRINGE IVP PRN ×2 (07:58→13:22)
[2020-09-05] MEDS: FLUoxetine 10 MG CAPSULE PO SCH (08:50)
[2020-09-05] MEDS: polyethylene glycoL 3350 17 GM PACKET PO PRN (08:50)
[2020-09-05] MEDS: ASPIRIN EC 81 MG TABLET PO SCH (08:52)
[2020-09-05] MEDS: THIAMINE 100 MG TABLET PO SCH (08:52)
[2020-09-05] MEDS: LACTOBACILLUS RHAMNOSUS GG CAPSULE PO SCH (08:53)
[2020-09-05] MEDS: ACETAMINOPHEN 325 MG TABLET PO PRN (08:53)
[2020-09-05] MEDS: amLODIPine 5 MG TABLET PO SCH (08:54)
[2020-09-05] MEDS: TAMSULOSIN 0.4 MG CAPSULE PO SCH (08:54)
[2020-09-05] MEDS: ENOXAPARIN 40 MG/0.4 ML SYRINGE SUBQ SCH (08:56)
[2020-09-05] MEDS: METOPROLOL SUCCINATE 25 MG TABLET PO SCH (08:56)
[2020-09-06] MEDS: NAFCILLIN 2 GM in SODIUM CHLORIDE 0.9% MINIBAG 100 ML IV SCH ×5 (04:09→20:17)
[2020-09-06] MEDS: FORMOTEROL FUMARATE NEB 20 MCG/2 ML INH SCH ×2 (07:13→23:23)
[2020-09-06] MEDS: MAGNESIUM OXIDE 400 MG TABLET PO SCH (08:31)
[2020-09-06] MEDS: amLODIPine 5 MG TABLET PO SCH (08:38)
[2020-09-06] MEDS: ASPIRIN EC 81 MG TABLET PO SCH (08:38)
[2020-09-06] MEDS: LACTOBACILLUS RHAMNOSUS GG CAPSULE PO SCH (08:41)
[2020-09-06] MEDS: FLUoxetine 10 MG CAPSULE PO SCH (08:42)
[2020-09-06] MEDS: METOPROLOL SUCCINATE 25 MG TABLET PO SCH (08:42)
[2020-09-06] MEDS: THIAMINE 100 MG TABLET PO SCH (08:44)
[2020-09-06] MEDS: TAMSULOSIN 0.4 MG CAPSULE PO SCH (08:45)
[2020-09-06] MEDS: ENOXAPARIN 40 MG/0.4 ML SYRINGE SUBQ SCH (08:45)
[2020-09-06] MEDS: SODIUM CHLORIDE FLUSH 0.9% 10 ML SYRINGE IVP PRN ×2 (09:43→13:21)
[2020-09-07] MEDS: NAFCILLIN 2 GM in SODIUM CHLORIDE 0.9% MINIBAG 100 ML IV SCH ×4 (00:27→13:22)
[2020-09-07] MEDS: FORMOTEROL FUMARATE NEB 20 MCG/2 ML INH SCH (06:56)
[2020-09-07 08:51] VITALS: BP 119/71
[2020-09-07] MEDS: MAGNESIUM OXIDE 400 MG TABLET PO SCH (08:51)
[2020-09-07] MEDS: METOPROLOL SUCCINATE 25 MG TABLET PO SCH (08:51)
[2020-09-07] MEDS: TAMSULOSIN 0.4 MG CAPSULE PO SCH (08:52)
[2020-09-07] MEDS: ASPIRIN EC 81 MG TABLET PO SCH (08:52)
[2020-09-07] MEDS: FLUoxetine 10 MG CAPSULE PO SCH (08:52)
[2020-09-07] MEDS: THIAMINE 100 MG TABLET PO SCH (08:52)
[2020-09-07] MEDS: LACTOBACILLUS RHAMNOSUS GG CAPSULE PO SCH (08:52)
[2020-09-07] MEDS: amLODIPine 5 MG TABLET PO SCH (08:52)
[2020-09-07] MEDS: ENOXAPARIN 40 MG/0.4 ML SYRINGE SUBQ SCH (08:53)
--- NOTE | 2020-09-07 08:58 | Discharge Plan ---
Discharge Plan Problem Reviewed?: Yes Disposition: Home, Self Care Condition: Good Prescriptions: Tamsulosin [Flomax] 0.4 mg PO DAILY #30 cap Magnesium Oxide [Mag Ox] 400 mg PO DAILYWM #30 tab amLODIPine [Norvasc] 5 mg PO DAILY #30 tab Metoprolol Succinate [Toprol Xl] 25 mg PO DAILY #30 tab Thiamine [Vitamin B-1] 100 mg PO DAILY #30 tab Thiamine [Vitamin B-1] 100 mg PO DAILY #1 tab Diet: Regular Shower Restrictions: No Driving Restrictions: No Instruction Topics: Catheter Bag Urinary Empty Clean, Osteomyelitis Dc, Leg Bag Care Dc Health Concerns: You were admitted to the hospital August 18 because you were confused, had a fever, and were not responding to a recent change in antibiotics for the treatment of osteomyelitis. You had osteomyelitis of the spine and had been undergoing treatment for about 5 weeks and it was not working. They switched you to a different antibiotic called nafcillin 3 days before admission. However you started having confusion, started speaking gibberish, and ambulance was called. Your toxicology screen was positive for the use of amphetamines and methamphetamines. We resumed your antibiotics. The antibiotics were for several weeks duration. You were not able to go home to do those antibiotics and because you have a tendency toward amphetamine abuse. you were discharged from the hospital August 25. You were admitted to a jail bed status in the hospital that day to continue antibiotics. You have completed antibiotics as of September 06. We feel you are stable to return home. While you were here we noted that you needed high-dose vitamin supplementation with thiamine and magnesium. I am sending you home with a prescription for those. You also had a problem with urinary retention in your prostate so we started you on Flomax. You had high blood pressure and we needed to start you on 2 blood pressure pills and you were started on amlodipine and metoprolol. Plan of Treatment: 1. You will need to have your blood work rechecked on September 22 and will need something called a sedimentation rate and a C-reactive protein. Please have your primary care provider, Ben Wagner, order those blood work for you. 2. Once the blood work is done, please have the lab fax that report to Drake Brock MD at [facility] infectious disease clinic. His phone number is [phone]. His fax number is [phone]. He needs to see that blood work to make sure that you do not need more treatment. 3. Please also see Dr. Wagner for getting your blood pressure checked on the new medicines 4. Please refrain from using any recreational substances such as amphetamines, methamphetamines, alcohol, marijuana, cocaine, etc. Care Goals: To successfully complete your therapy for infection of a bone in your spine, did not ever do recreational substances again, and to have good control of your blood pressure. Assessment: Patient has cognitive deficits, and this discharge plan was provided to his son. No Smoking: If you smoke, Please STOP! Call for help. Follow-up with: Ben Wagner MD [Primary Care Provider] -
[2020-09-07] MEDS: ACETAMINOPHEN 325 MG TABLET PO PRN (09:00)
[2020-09-07] MEDS: SODIUM CHLORIDE FLUSH 0.9% 10 ML SYRINGE IVP PRN (09:01)
--- NOTE | 2020-09-07 09:16 | DISCHARGE SUMMARY ---
Discharge Summary Admit Date: 08/25/20 Discharge Date: 09/07/20 Discharging Provider: Elzbieta Cox MD Primary Care Provider: Ben Wagner MD Code Status: Attempt Resuscitation Condition at Discharge: Good Discharge Disposition: Home, Self Care - DIAGNOSES Discharge Diagnoses with Status of Each Condition: 1. Osteomyelitis of the thoracic spine completed therapy September 06 with nafcillin, prior therapy with cefazolin 2. Receiving intravenous antibiotic treatment as outpatient 3. Right frontal lobe infarct with acute care stay August 18 4. cognitive deficits due to stroke (and substance abuse 5 benign prostatic hypertrophy with lower urinary tract symptoms of obstruction 6. COPD without exacerbation 7. Hypertension 8. Osteonecrosis of the left hip 9. History of methamphetamine abuse with acute methamphetamine intoxication August 18 - HPI History of Present Illness: This is 65-year-old male with a past medical history difficult for dementia, hypertension, COPD, BPH and a recent diagnosis of thoracic spine osteomyelitis treat with cefazolin for 5 weeks then Nafcillin for 3 days prior to admission 08/25/2020. He was on cefazolin then switched to IV nafcillin because of rising WBC and CRP. He was admitted to [facility] August 25, 3 days after the nafcillin switch, for altered mental status and rhabdomyolysis. He was found to have a right frontal lobe infarct as well as acute methamphetamine toxicity. Although his mentation improved, he remained quite disoriented but was improving on a daily basis. The rhabdomyolysis resolved with IV fluids. After he was medically cleared for discharge, disposition was difficult given he is on IV antibiotics and is not safe discharge to home alone given his dementia, predisposition for substance abuse, and poor safety awareness. After discussion with family, decision was made to admit him to swing bed for continuation with IV antibiotics with plan to ultimately discharge to memory care or home with caregivers. As such he is being admitted on August 25 with the history and physical performed August 26. The patient reports feeling well. He still feels confused but feels like he is improving on a daily basis. Denies chest pain or dyspnea. He has been walking with a walker. He does complain of left hip pain and left shoulder pain both of which are chronic for him. - Past Medical History Cardiovascular: reports: Hypertension, Angina Respiratory: reports: COPD, Other Neuro: reports: None Endocrine/Autoimmune: reports: None GI: reports: Colon polyps, Hepatitis : reports: Retention, Incontinence HEENT: reports: None Psych: reports: Depression, Post traumatic stress disorder Musculoskeletal: reports: Osteoarthritis Derm: reports: None MRSA Hx?: No - Past Surgical History General: reports: Other HEENT: reports: Tonsil/Adenoidectomy - CONSULTS | PROCEDURES Procedures: thoracic spine CT compared to June 22, 2020. Development of osteomyelitis at T7-T8 level with focal interval progression of endplate irregularity and sclerosis since the relatively recent examination of June 22, 2020. The endplate sclerosis and irregularity was already present on the previous CT. C-reactive protein 7.6>> 3.5>> 2.2 Sedimentation rate 53>> 44>> 38 - HOSPITAL COURSE Hospital Course: The patient was transitioned to swing bed status from acute care status. His rhabdomyolysis had resolved. His cognitive deficits were noted from his stroke and he did not require physical therapy for strengthening. As the days went on this patient was walking in the hallways, eating well, and slowly improving his mentation. He had occasional thoracic spine pain that was well controlled. Repeat CT was as above. He is followed by Drake Brock MD at [facility] infectious disease clinic. That is the physician we consulted over the phone regarding his care. Dr. Brock sent as a notification on September 05, after he reviewed the patient's ongoing labs, to "please stop nafcillin after September 06 and remove the PICC line. Recheck sedimentation rate and C-reactive protein around September 22 and fax report to Drake Brock MD at [facility] infectious disease clinic. Phone number [phone]. Fax number [phone]. We will request to recheck it afterwards at a time to be determined based on the review of September 22 result. Thanks." Because of the patient's current home life, family has decided that he needs to be taken out of an at risk environment and moved to be near their family. As such his son Lucas is flying in from [place]. Will be picking up the patient on the day of discharge. In the next few days they will be making arrangements to fly the patient to [place] to live with his son and other family members. As such I have written a prescription for these labs to be included in the patient's discharge instructions so that his new physician can follow-up on this with our local infectious disease specialist. At discharge the patient's temperature is 36.7. Pulse is 71. Blood pressure 119/71. Respirations are 18. 99% on room air. He is 5 foot 11 inches tall and weighs 72.5 kg. He is ambulatory with no standby assist. Uses a walker. He is forgetful about plan of care, future plans, but is oriented to person place and time and situation. Neck is supple, no bruits. Lungs are clear to auscultation and percussion. No increased respiratory effort with talking. Abdomen was soft, nontender, normal bowel sounds. Last bowel movement is today. He does have a Elizondo catheter because of benign prostatic hypertrophy. He had a Elizondo placed in the acute care status, and that was continued during his swing bed status. It is recommended that he be followed up for this issue. He may be able to have his Elizondo discontinued but would need to be carefully watched the first day or 2 after that happens. When he walks he does limp at times. The left hip with osteonecrosis is painful. He will also need follow-up for that in the near future. PICC line is removed at discharge. He has no clubbing cyanos is or edema. He is alert, follows commands. Greater than 35 minutes was spent coordinating discharge. - ALLERGIES Allergies/Adverse Reactions: Allergies Allergy/AdvReac Type Severity Reaction Status Date / Time No Known Drug Allergies Allergy Verified 07/08/20 09:55 - MEDICATIONS Home Medications: Ambulatory Orders Medication Instructions Recorded Confirmed FLUoxetine [PROzac] 20 mg PO DAILY 01/04/19 08/26/20 Umeclidinium Brm/Vilanterol Tr 1 puffs INH DAILY 01/08/20 08/26/20 [Anoro Ellipta 62.5-25 Mcg INH] Umeclidinium Nemacolin [Incruse 1 puffs INH DAILY 01/08/20 08/26/20 Ellipta] Lactobacillus Acidophilus 1 tab PO DAILY 08/20/20 08/26/20 [Probiotic Acidophilus] Magnesium Oxide [Mag Ox] 400 mg PO DAILYWM #30 tab 09/07/20 Metoprolol Succinate [Toprol Xl] 25 mg PO DAILY #30 tab 09/07/20 Tamsulosin [Flomax] 0.4 mg PO DAILY #30 cap 09/07/20 Thiamine [Vitamin B-1] 100 mg PO DAILY #1 tab 09/07/20 Thiamine [Vitamin B-1] 100 mg PO DAILY #30 tab 09/07/20 amLODIPine [Norvasc] 5 mg PO DAILY #30 tab 09/07/20 - LABS Result Diagrams: 09/02/20 04:20 09/02/20 04:20
== END 2020-09-07 14:45 | disposition home or self-care (01) | DRG 540 ==
LOC: MS2 15:10
PROVIDERS: ADMIT Internal Medicine; ATTEND Specialist
DX: M46.24 Osteomyelitis of vertebra, thoracic region (principal); M87.852 Other osteonecrosis, left femur; I69.319 Unspecified symptoms and signs involving cognitive functions following cerebral infarction; F03.90 Unspecified dementia, unspecified severity, without behavioral disturbance, psychotic disturbance, mood disturbance, and anxiety; J44.9 Chronic obstructive pulmonary disease, unspecified; I10 Essential (primary) hypertension; F15.10 Other stimulant abuse, uncomplicated; G89.29 Other chronic pain; M25.512 Pain in left shoulder; N40.1 Benign prostatic hyperplasia with lower urinary tract symptoms; N39.498 Other specified urinary incontinence; R33.8 Other retention of urine; F32.9 Major depressive disorder, single episode, unspecified; F43.10 Post-traumatic stress disorder, unspecified; Z74.09 Other reduced mobility; M19.90 Unspecified osteoarthritis, unspecified site; Z79.899 Other long term (current) drug therapy; Z87.891 Personal history of nicotine dependence; Z87.19 Personal history of other diseases of the digestive system
CPT/HCPCS: 36415; 80048; 82550; 85025; 85651; 86140; 94640